=== PATIENT | male | born 1990 | race Caucasian/White ===

== ENCOUNTER 2021-07-17 21:21 | Emergency (ER) | payer OTHER, SELFPAY ==
[2021-07-17 21:25] VITALS: BP 167/112; PULSE 107; RESP 20; O2SAT 100; BMI 39.5
[2021-07-17] MEDS: Ondansetron ODT 4 MG TAB.RAPDIS TRANSLINGU (21:33)
[2021-07-17] MEDS: LORazepam 2 MG/ML VIAL IM (21:40)
--- NOTE | 2021-07-17 21:40 | ED.GENADULT ---
HPI - General Adult General Chief complaint: General Medical Stated complaint: od? Time Seen by Provider: 07/17/21 21:34 Source: patient Mode of arrival: ambulatory Limitations: no limitations History of Present Illness HPI narrative: Patient opiate user snores 6-7 bags a day today he used 3 bags and felt that he has overdosed so he use 2 dose of nasal Narcan total 4 mg and drove himself to the ER now patient vomiting feel anxious Related Data Allergies Allergy/AdvReac Type Severity Reaction Status Date / Time No Known Allergies Allergy Verified 07/17/21 21:24 [No Known Allergies*] Review of Systems Review of Systems: Yes all other systems are reviewed and are negative PMFSH Social History Social History Advance Directives: No Physical Exam Vital Signs: Vital Signs: Last Vital Signs Pulse 94 07/18/21 00:41 Resp 16 07/18/21 00:41 BP 142/92 H 07/18/21 00:41 Pulse Ox 99 07/18/21 00:41 Body Mass Index 39.5 Appearance: Alert. Oriented X3. Anxious Eyes: PERRLA, ENT: Pharynx normal. Oral Mucosa moist Neck: Normal inspection. Neck supple. CVS: Tachycardic regular rhythm Pulses normal. Respiratory: No respiratory distress. Equal air entry bilateral, no wheezing/rales/rhonchi Abdomen: Soft and nontender. Bowel sounds are present, no mass palpable Skin: Skin warm and dry. Extremities: No lower extremity edema. No calf tenderness Neuro: Oriented X 3. Course Reevaluation(s) Reevaluation #1: Patient feeling much better now feel like back to baseline not nauseated no diarrhea discharge patient home advised to follow-up with detox Time: 00:59 Discharge Plan Discharge Clinical Impression: Opiate withdrawal Patient Disposition: Home, Self-Care Instructions: Opioid Withdrawal (ED), Narcotic Use Disorder (ED) Additional Instructions: Stop using heroin Follow up detox
--- NOTE | 2021-07-17 22:00 | PC.NURSE ---
PT stated that needed to use the bathroom. PT found to be incontinent of stool in bed. PT ambulated to the bathroom on his own.
[2021-07-17] MEDS: Prochlorperazine Edisylate 10 MG/2 ML VIAL IVPUSH (22:27)
[2021-07-17] MEDS: 0.9 % Sodium Chloride 1,000 ML 999 ML IVCONT (22:27)
--- NOTE | 2021-07-17 22:33 | PC.NURSE ---
PT experiencing N/V/D while in the bathroom. 22g IV inserted into left hand. PT medicated per NOV. Fluids running. PT is resting comfortably in bed.
[2021-07-17 23:05] VITALS: BP 125/73; PULSE 84; RESP 17; O2SAT 97
[2021-07-17 23:16] VITALS: BP 125/73; PULSE 80; RESP 20; O2SAT 93
[2021-07-18 00:41] VITALS: BP 142/92; PULSE 94; RESP 16; O2SAT 99
== END 2021-07-18 01:28 | disposition home or self-care (01) ==
PROVIDERS: Emergency Provider Internal Medicine
DX: F11.23 Opioid dependence with withdrawal (principal)
CPT/HCPCS: 96361; 96372; 96374; 99284; J2060

== ENCOUNTER 2022-05-09 11:22 | Emergency (ER) | payer OTHER, SELFPAY ==
--- NOTE | ~2022-05-09 | XR_ITS ---
EXAMINATION: XR CHEST CLINICAL INFORMATION: Chest pain COMPARISON: CXR November 2021 TECHNIQUE: 2 views of the chest were obtained. FINDINGS: No significant abnormality is noted involving the heart, lungs, mediastinum, bony thorax or soft tissues. XR/XR chest 2V IMPRESSION: Unremarkable examination.
[2022-05-09 11:57] VITALS: BP 134/87; PULSE 87; RESP 16; TEMP 36.6; O2SAT 99; BMI 37.5
--- NOTE | 2022-05-09 12:01 | ECG_ITS ---
Test Reason : cp Blood Pressure : / mmHG Vent. Rate : 090 BPM Atrial Rate : 090 BPM P-R Int : 148 ms QRS Dur : 080 ms QT Int : 370 ms P-R-T Axes : 049 016 043 degrees QTc Int : 452 ms Normal sinus rhythm Normal ECG When compared with ECG of 15-DEC-2018 21:56, No significant change was found Referred By: Generic ED Physician Electronically Signed By:VIBHA MILLER
[2022-05-09 12:12] LABS: MANUAL DIFF FLAG NO
[2022-05-09 12:14] LABS: Basophils Absolute Auto 0.1 X10*3/uL (0.0-0.2); Basophils Percent Auto 0.6 % (0-2); Eosinophils Absolute Auto 0.2 X10*3/uL (0.0-0.4); Eosinophils Percent Auto 2.4 % (0-4); Hematocrit 45.4 % (42.0-52.0); Hemoglobin 15.8 g/dl (14.0-18.0); Imm Gran Abs Auto 0.04 X10*3/uL (0.00-0.03); Imm Gran Pct Auto 0.5 % (0.0-0.4); Lymphocytes Absolute Auto 2.2 X10*3/uL (1.2-4.9); Lymphocytes Percent Auto 26.4 % (20-40); Mean Corpuscular HGB Conc 34.8 g/dl (31.0-36.0); Mean Corpuscular Volume 91.9 fL (80.0-98.0); Mean Platelet Volume 9.9 fL (9.4-12.4); Monocytes Absolute Auto 0.5 X10*3/uL (0.1-1.2); Monocytes Percent Auto 6.5 % (2-11); Neutrophils Absolute Auto 5.3 x10*3/uL (2.0-8.3); Neutrophils Percent Auto 63.6 % (45-73); Platelet Count 241 X10*3/uL (160-400); Red Blood Count 4.94 X10*6/uL (4.60-5.80); Red Cell Distribution Width 12.1 % (11.0-16.0); White Blood Count 8.3 X10*3/uL (4.8-10.8)
[2022-05-09 12:34] LABS: Anion Gap 15 (12-20); Blood Urea Nitrogen 13 mg/dL (9-16); Calcium 9.5 mg/dL (8.4-10.2); Carbon Dioxide 29 mmol/L (22-29); Chloride 102 mmol/L (96-108); Creatinine Clr Calc Pharmacy 165.3; Estimated Glomerular Filt Rate > 60; Glucose Random 103 mg/dL (60-115); Potassium 4.6 mmol/L (3.3-5.1); Sodium 141 mmol/L (135-145)
[2022-05-09 12:42] LABS: Troponin-I High Sensitivity < 3.5 ng/L (<3.5-35.0)
[2022-05-09 15:43] VITALS: BP 146/93; PULSE 81; RESP 18; TEMP 36.8
--- NOTE | 2022-05-09 15:48 | PC.NURSE ---
Heart is racing fast and some burning in chest yesterday. More numbness and tingling noted in chest today and also has some tingling in his neck and back. feels like it's a panic attack symptoms are for 2 weeks now
--- NOTE | 2022-05-09 16:17 | ED_ITS ---
HPI - General Adult General Chief complaint: General Medical Stated complaint: CP/Unable to urinate/Outer body experiences Time Seen by Provider: 05/09/22 15:36 Source: patient Mode of arrival: ambulatory Limitations: no limitations History of Present Illness HPI narrative: 31-year-old male with a history of bipolar disease, ADHD presents with reports of 3 days of left-sided chest pain described as a constant burning sensation. Patient also reports he has been having increased panic attacks and anxiety over the last 1 month. Patient describes this as out of body sensation. He denies any associated shortness of breath, cough, fever, palpitations, nausea or vomiting. Patient tells me that he does see at [facility] prescriber every 3 months to prescribed Geodon, trazodone Adderall. Has not spoken to her about his recent increase in anxiety symptoms. He does not have a therapist. Did take 1 of his mom's lorazepam which seemed to help. He did talk to his primary care doctor who is hesitant to prescribe him benzos as he has a history of substance abuse. He is currently on methadone 67 mg and they are tapering him. He has a history of abusing Percocet in the past. Patient denies any recent sick contact. No recent travel. No recent surgeries. Related Data Previous Rx's Medication Instructions Recorded hydroxyzine HCl 25 mg tablet 25 mg PO TID PRN anxiety #30 tabs 05/09/22 Allergies Allergy/AdvReac Type Severity Reaction Status Date / Time No Known Allergies Allergy Verified 07/17/21 21:24 [No Known Allergies*] Review of Systems Review of Systems: Yes all other systems are reviewed and are negative Constitutional: Constitutional: Reports no additional constitutional complaints, Denies body ache(s), Denies chills, Denies fever(s), Denies headache(s) and Denies weakness Eyes: Eyes: Reports no additional eye complaints and Denies change in vision ENT: Reports system reviewed and no additional complaints, except as documented, Denies dizziness, Denies headache(s), Denies nasal congestion, Denies nasal discharge and Denies neck pain Cardiovascular: Cardiovascular: Reports no additional cardiovascular complain ts, Reports chest pain, Denies leg edema and Denies dyspnea Respiratory: Respiratory: Reports no additional respiratory complaints, Denies cough and Denies dyspnea Gastrointestinal: Gastrointestinal: Reports no additional gastrointestinal complaints, Denies abdominal pain, Denies diarrhea, Denies nausea and Denies vomiting Genitourinary: Genitourinary: Denies urinary incontinence Musculoskeletal: Musculoskeletal: Reports no additional musculoskeletal complaints, Denies back pain, Denies arthralgias, Denies joint swelling, Denies neck pain, Denies numbness and Denies tingling Integumentary/Breasts: Skin/Breast: Reports system reviewed and no additional complaints, except as docu and Denies rash Neurologic: Reports system reviewed and no additional complaints, except as documented, Denies dizziness, Denies headache(s), Denies numbness, Denies tingling and Denies weakness Psychiatric: Psychiatric: Reports anxiety and Denies suicidal ideation COUNTS INCLUDE 234 BEDS AT THE [facility] Past Medical History Attestation statement: The following information was validated with the patient. Source: old records reviewed and nursing notes reviewed Social History Social History Patient Tobacco Use Status: Current everyday Tobacco user Smoked in Last 30 Days: Yes Substance Use Type: Other Any prior treatment program specific to substance use: Yes Advance Directives: No Advance Directives Information Provided: Yes Physical Exam ED Vital Signs: Vital Signs - 24 hr 05/09/22 11:57 05/09/22 15:43 Temperature 97.9 F 98.3 F Pulse Rate 87 81 Respiratory Rate 16 18 Blood Pressure 134/87 146/93 H Pulse Oximetry 99 Oxygen Delivery Method Room Air Room Air Oxygen Flow Rate 99 BMI result Body Mass Index 37.5 Const General: cooperative, healthy appearing, comfortable and no acute distress Orientation/consciousness: patient oriented x3 Limitations: no limitations HENMT Head: Yes normal to inspection Ears: hearing grossly normal bilaterally and TM normal on the right Throat: Yes posterior oropharynx normal, Yes tonsils normal and Yes uvula midline Eyes General: appearance normal, both eyes and all related structures Pupils: Equal, round and reactive pupils present Neck Neck: Yes normal visual inspection, Yes full ROM, Yes no lymphadenopathy and Yes no meningeal signs Chest Chest palpation & inspection: normal inspection of the chest Resp Effort & Inspection: normal respiratory effort Auscultation: clear to auscultation bilaterally Cardio Rate: regular rate Rhythm: regular rhythm Peripheral pulses: Peripheral pulses 2+ throughout GI Inspection: Yes normal to inspection Palpation (GI): Soft to palpation and nontender General: Yes no CVA tenderness Back/Spine/Pelvis Back: no CVA tenderness Thoracic/Lumbar Spine: thoracic and lumbar spine normal to inspection Skin General skin exam: no rashes or lesions noted Neuro General: patient oriented x3, moves all extremities and no meningeal signs Cranial nerves: Yes CN's II-XII intact bilaterally, Yes Equal, round and reactive pupils present, Yes Bilaterally intact EOM present, Yes Nystagmus not present and Yes Normal facial strength present Cognition (Neuro): normal cognition Gait exam (Neuro): Normal gait present Motor exam (neuro): 5/5 motor strength present throughout Sensory Exam: Normal double simultaneous stimulation for sensation Coordination: [id number] test normal, [id number] test normal and tandem gait normal Course Course Course Narrative: EKG shows no ischemic changes. Labs unremarkable. Chest x-ray was no acute finding. Patient reports multiple life stressors. Patient reports increasing anxiety and panic attacks over the last month. Patient does have a prescriber for his psychiatric medications. He does not have a therapist. He is working on getting better insurance that he may qualify for therapy. I did recommend that he do this is a believe may be helpful. He should also to speak to his prescribing physician about his anxiety and they may be able to offer some recommendations for him. Reviewed worrisome signs and symptoms of when to return to the emergency department. Comfortable discharge home. Medical Decision Making MDM Narrative Medical decision making narrative: 31-year-old male with history of bipolar disorder, ADHD, former substance use presents with a constellation of symptoms but most specifically some left-sided chest pain for the last few days with no associated symptoms as constant in nature and nonexertional. Patient also complaining of anxiety and panic attacks over the last month. Not currently on any anxiety medications and does have a prescribing provider for his Geodon and trazodone and Adderall. Overall nontoxic. Vitals are stable. Will check EKG, labs, chest x-ray Differential Diagnosis Differential Diagnosis: Anxiety, ACS Medical Records Medical records reviewed: Yes I reviewed the patient's medical records. Lab Data Lab results reviewed: Yes I reviewed the patient's lab results. Result diagrams: 05/09/22 12:07 05/09/22 12:07 Labs: Lab Results 05/09/22 05/09/22 05/09/22 Range/Units 12:07 12:07 12:07 WBC 8.3 (4.8-10.8) X10*3/uL RBC 4.94 (4.60-5.80) X10*6/uL Hgb 15.8 (14.0-18.0) g/dl Hct 45.4 (42.0-52.0) % MCV 91.9 (80.0-98.0) fL MCH 32.0 (27.0-33.0) pg MCHC 34.8 (31.0-36.0) g/dl RDW 12.1 (11.0-16.0) % Plt Count 241 (160-400) X10*3/uL MPV 9.9 (9.4-12.4) fL Immature Gran % (Auto) 0.5 H (0.0-0.4) % Neut % (Auto) 63.6 (45-73) % Lymph % (Auto) 26.4 (20-40) % [place] % (Auto) 6.5 (2-11) % Eos % (Auto) 2.4 (0-4) % Baso % (Auto) 0.6 (0-2) % Lymph # (Auto) 2.2 (1.2-4.9) X10*3/uL [place] # (Auto) 0.5 (0.1-1.2) X10*3/uL Eos # (Auto) 0.2 (0.0-0.4) X10*3/uL Baso # (Auto) 0.1 (0.0-0.2) X10*3/uL Abs Immat Gran (auto) 0.04 H (0.00-0.03) X10*3/uL Absolute Neuts (auto) 5.3 (2.0-8.3) x10*3/uL Absolute Nucleated RBC 0.000 (0.0-0.012) X10*3/uL Nucleated RBC % (auto) 0.0 (0.0-0.2) /100WBC Sodium 141 (135-145) mmol/L Potassium 4.6 (3.3-5.1) mmol/L Chloride 102 (96-108) mmol/L Carbon Dioxide 29 (22-29) mmol/L Anion Gap 15 (12-20) BUN 13 (9-16) mg/dL Creatinine 0.87 (0.5-1.4) mg/dL Estim Creat Clear Calc 165.3 Estimated GFR > 60 Random Glucose 103 (60-115) mg/dL Calcium 9.5 (8.4-10.2) mg/dL Troponin I High Sens < 3.5 (<3.5-35.0) ng/L Imaging Data Chest x-ray: Attestation: I personally reviewed and interpreted this imaging study as follows: Radiologist's impression: [address] [address] XRay Report Signed Patient: Carl Matos MR#: [id number] : 1990 Acct:[id number] Age/Sex: 31 / M ADM Date: 05/09/22 Loc: .ED Attending Dr: Ordering Physician: Generic ED Physician Date of Service: 05/09/22 Procedure(s): XR chest 2V Accession Number(s): [id number] cc: Generic ED Physician~ EXAMINATION: XR CHEST CLINICAL INFORMATION: Chest pain COMPARISON: CXR November 2021 TECHNIQUE: 2 views of the chest were obtained. FINDINGS: No significant abnormality is noted involving the heart, lungs, mediastinum, bony thorax or soft tissues. XR/XR chest 2V IMPRESSION: Unremarkable examination. ECG Data Attestation: I personally reviewed and interpreted this ECG as follows: Interpretation: NSR with rate 90, normal pr, normal qrs, normal qt Discharge Plan Discharge Clinical Impression: Atypical chest pain, Anxiety Patient Disposition: Home, Self-Care Instructions: Anxiety (ED), Chest Wall Pain (ED) Additional Instructions: Follow-up with your medication prescriber Establish a therapist Your blood work and EKG and x-ray are reassuring Prescriptions: New hydroxyzine HCl 25 mg tablet 25 mg PO TID PRN (Reason: anxiety) Qty: 30 0RF Referrals: Physician,Unknown J [Primary Care Provider] - Interventions: ED Discharge Assessment Last Done: 05/09/22 16:27 Discharge Date/Time: 05/09/22 16:28
== END 2022-05-09 16:28 | disposition home or self-care (01) ==
PROVIDERS: Emergency Provider Student in an Organized Health Care Education/Training Program
DX: R07.89 Other chest pain (principal); F41.9 Anxiety disorder, unspecified; F17.200 Nicotine dependence, unspecified, uncomplicated
CPT/HCPCS: 36415; 71046; 80048; 84484; 85025; 93005; 99283; 99284

== ENCOUNTER 2022-11-06 14:41 | Emergency (ER) | payer OTHER, SELFPAY ==
--- NOTE | ~2022-11-06 | XR_ITS ---
EXAMINATION: XR CHEST CLINICAL INFORMATION: Chest pain COMPARISON: Chest x-ray 05/09/2022 TECHNIQUE: Frontal view of the chest was obtained. FINDINGS: The patient is slightly rotated. The lungs are clear. No airspace consolidation, pleural effusion, or pneumothorax. The cardiomediastinal silhouette is within normal limits. No acute osseous injury. XR/XR chest 1V IMPRESSION: No acute pulmonary disease.
[2022-11-06 14:54] VITALS: BP 168/93; PULSE 97; TEMP 36.6; O2SAT 94; BMI 36.6
--- NOTE | 2022-11-06 14:55 | ECG_ITS ---
Test Reason : CHEST PAIN Blood Pressure : / mmHG Vent. Rate : 095 BPM Atrial Rate : 095 BPM P-R Int : 150 ms QRS Dur : 080 ms QT Int : 358 ms P-R-T Axes : 043 002 051 degrees QTc Int : 449 ms Normal sinus rhythm Normal ECG When compared with ECG of 09-MAY-2022 12:01, No significant change was found Referred By: Kirt Aguila Electronically Signed By:FLOYD CERVANTES MD
--- NOTE | 2022-11-06 14:58 | ED.CHESTPAIN ---
HPI - Chest Pain General Chief Complaint: Chest Pain Stated Complaint: Chest pain/HBP Time Seen by Provider: 11/06/22 17:00 Related Data Previous Rx's Medication Instructions Recorded hydroxyzine HCl 25 mg tablet 25 mg PO TID PRN anxiety #30 tabs 05/09/22 Allergies Allergy/AdvReac Type Severity Reaction Status Date / Time No Known Allergies Allergy Verified 07/17/21 21:24 [No Known Allergies*] [facility] Social History Social History Patient Tobacco Use Status: Current everyday Tobacco user Substance Use Type: Other Advance Directives: No Advance Directives Information Provided: No Physical Exam Vital Signs: Vital Signs: Last Vital Signs Temp 97.9 F 11/06/22 14:54 Pulse 82 11/06/22 17:27 Resp 18 11/06/22 17:27 BP 159/95 H 11/06/22 17:27 Pulse Ox 98 11/06/22 17:27 O2 Del Method 11/06/22 17:27 BMI result Body Mass Index 36.6 Course Course Course Narrative: RME: 31 yold male with pmh of anxiety presents to the ED for chest pain and sensation as if the room is closing in and making him nervous. mother states blood pressure was elevated yesterday. no pmh of hypertension. patient states feels nervous. will do EKG, labs, and chest xray. no leg swelling, calf pain, or pitting edema. Medical Decision Making Lab Data 11/06/22 15:21 11/06/22 15:21 Labs: Lab Results 11/06/22 11/06/22 11/06/22 Range/Units 15:21 15:21 15:21 WBC 8.5 (4.8-10.8) X10*3/uL RBC 4.94 (4.60-5.80) X10*6/uL Hgb 15.6 (14.0-18.0) g/dl Hct 45.2 (42.0-52.0) % MCV 91.5 (80.0-98.0) fL MCH 31.6 (27.0-33.0) pg MCHC 34.5 (31.0-36.0) g/dl RDW 12.6 (11.0-16.0) % Plt Count 252 (160-400) X10*3/uL MPV 10.7 (9.4-12.4) fL Immature Gran % (Auto) 0.2 (0.0-0.4) % Neut % (Auto) 62.2 (45-73) % Lymph % (Auto) 30.0 (20-40) % [place] % (Auto) 5.4 (2-11) % Eos % (Auto) 1.5 (0-4) % Baso % (Auto) 0.7 (0-2) % Lymph # (Auto) 2.5 (1.2-4.9) X10*3/uL [place] # (Auto) 0.5 (0.1-1.2) X10*3/uL Eos # (Auto) 0.1 (0.0-0.4) X10*3/uL Baso # (Auto) 0.1 (0.0-0.2) X10*3/uL Abs Immat Gran (auto) 0.02 (0.00-0.03) X10*3/uL Absolute Neuts (auto) 5.3 (2.0-8.3) x10*3/uL Absolute Nucleated RBC 0.000 (0.0-0.012) X10*3/uL Nucleated RBC % (auto) 0.0 (0.0-0.2) /100WBC PT 11.7 (10.0-13.1) SEC INR 1.0 (0.9-1.1) APTT 34.2 (26.0-36.4) SEC Sodium 140 (135-145) mmol/L Potassium 4.5 (3.3-5.1) mmol/L Chloride 101 (96-108) mmol/L Carbon Dioxide 29 (22-29) mmol/L Anion Gap 15 (12-20) BUN 14 (9-16) mg/dL Creatinine 0.93 (0.5-1.4) mg/dL Estim Creat Clear Calc 152.6 Estimated GFR > 60 Random Glucose 128 H (60-115) mg/dL Calcium 9.8 (8.4-10.2) mg/dL Total Bilirubin 0.5 (0.0-1.0) mg/dL AST 17 (5-37) U/L ALT 29 (0-40) U/L Alkaline Phosphatase 87 (39-117) U/L Troponin I High Sens (<3.5-35.0) ng/L B-Natriuretic Peptide (<100) pg/mL Total Protein 7.2 (6.5-8.0) g/dL Albumin 4.1 (3.5-5.0) g/dL 11/06/22 11/06/22 Range/Units 15:21 15:21 WBC (4.8-10.8) X10*3/uL RBC (4.60-5.80) X10*6/uL Hgb (14.0-18.0) g/dl Hct (42.0-52.0) % MCV (80.0-98.0) fL MCH (27.0-33.0) pg MCHC (31.0-36.0) g/dl RDW (11.0-16.0) % Plt Count (160-400) X10*3/uL MPV (9.4-12.4) fL Immature Gran % (Auto) (0.0-0.4) % Neut % (Auto) (45-73) % Lymph % (Auto) (20-40) % [place] % (Auto) (2-11) % Eos % (Auto) (0-4) % Baso % (Auto) (0-2) % Lymph # (Auto) (1.2-4.9) X10*3/uL [place] # (Auto) (0.1-1.2) X10*3/uL Eos # (Auto) (0.0-0.4) X10*3/uL Baso # (Auto) (0.0-0.2) X10*3/uL Abs Immat Gran (auto) (0.00-0.03) X10*3/uL Absolute Neuts (auto) (2.0-8.3) x10*3/uL Absolute Nucleated RBC (0.0-0.012) X10*3/uL Nucleated RBC % (auto) (0.0-0.2) /100WBC PT (10.0-13.1) SEC INR (0.9-1.1) APTT (26.0-36.4) SEC Sodium (135-145) mmol/L Potassium (3.3-5.1) mmol/L Chloride (96-108) mmol/L Carbon Dioxide (22-29) mmol/L Anion Gap (12-20) BUN (9-16) mg/dL Creatinine (0.5-1.4) mg/dL Estim Creat Clear Calc Estimated GFR Random Glucose (60-115) mg/dL Calcium (8.4-10.2) mg/dL Total Bilirubin (0.0-1.0) mg/dL AST (5-37) U/L ALT (0-40) U/L Alkaline Phosphatase (39-117) U/L Troponin I High Sens < 3.5 (<3.5-35.0) ng/L B-Natriuretic Peptide 12 (<100) pg/mL Total Protein (6.5-8.0) g/dL Albumin (3.5-5.0) g/dL Discharge Plan Discharge Clinical Impression: Atypical chest pain, Elevated blood pressure reading, Elevated blood sugar Patient Disposition: Home, Self-Care Instructions: Chest Pain (ED), How to Take a Blood Pressure (ED) Additional Instructions: Have an appoint with her primary care provider tomorrow. I am recommending that you follow-up with them as scheduled monitor blood pressure. You were seen here for chest pain. Chest pain does not appear to be cardiac in nature. However, should her chest pain change in any way, or any other concerning symptoms, please follow-up the emergency room for re-evaluation. Prescriptions: No Action hydroxyzine HCl 25 mg tablet 25 mg PO TID PRN (Reason: anxiety) Qty: 30 0RF Interventions: ED Discharge Assessment Last Done: 11/06/22 17:28 Discharge Date/Time: 11/06/22 17:29
[2022-11-06 15:34] LABS: MANUAL DIFF FLAG NO
[2022-11-06 15:37] LABS: Basophils Absolute Auto 0.1 X10*3/uL (0.0-0.2); Basophils Percent Auto 0.7 % (0-2); Eosinophils Absolute Auto 0.1 X10*3/uL (0.0-0.4); Eosinophils Percent Auto 1.5 % (0-4); Hematocrit 45.2 % (42.0-52.0); Hemoglobin 15.6 g/dl (14.0-18.0); Imm Gran Abs Auto 0.02 X10*3/uL (0.00-0.03); Imm Gran Pct Auto 0.2 % (0.0-0.4); Lymphocytes Absolute Auto 2.5 X10*3/uL (1.2-4.9); Mean Corpuscular HGB Conc 34.5 g/dl (31.0-36.0); Mean Corpuscular Hemoglobin 31.6 pg (27.0-33.0); Mean Corpuscular Volume 91.5 fL (80.0-98.0); Mean Platelet Volume 10.7 fL (9.4-12.4); Monocytes Absolute Auto 0.5 X10*3/uL (0.1-1.2); Monocytes Percent Auto 5.4 % (2-11); Neutrophils Absolute Auto 5.3 x10*3/uL (2.0-8.3); Neutrophils Percent Auto 62.2 % (45-73); Platelet Count 252 X10*3/uL (160-400); Red Blood Count 4.94 X10*6/uL (4.60-5.80); Red Cell Distribution Width 12.6 % (11.0-16.0); White Blood Count 8.5 X10*3/uL (4.8-10.8)
[2022-11-06 15:42] LABS: Prothrombin Time 11.7 SEC (10.0-13.1)
[2022-11-06 15:44] LABS: Partial Thromboplastin Time 34.2 SEC (26.0-36.4)
[2022-11-06 15:52] LABS: Alanine Aminotransferase 29 U/L (0-40); Albumin Level 4.1 g/dL (3.5-5.0); Alkaline Phosphatase 87 U/L (39-117); Anion Gap 15 (12-20); Aspartate Amino Transferase 17 U/L (5-37); Bilirubin Total 0.5 mg/dL (0.0-1.0); Blood Urea Nitrogen 14 mg/dL (9-16); Calcium 9.8 mg/dL (8.4-10.2); Carbon Dioxide 29 mmol/L (22-29); Chloride 101 mmol/L (96-108); Creatinine Clr Calc Pharmacy 152.6; Estimated Glomerular Filt Rate > 60; Glucose Random 128 mg/dL (60-115); Potassium 4.5 mmol/L (3.3-5.1); Sodium 140 mmol/L (135-145); Total Protein 7.2 g/dL (6.5-8.0)
[2022-11-06 15:58] LABS: B Type Natriuretic Peptide 12 pg/mL (<100)
[2022-11-06 16:00] LABS: Troponin-I High Sensitivity < 3.5 ng/L (<3.5-35.0)
--- NOTE | 2022-11-06 17:10 | ED_ITS ---
HPI - Chest Pain General Chief Complaint: Chest Pain Stated Complaint: Chest pain/HBP Time Seen by Provider: 11/06/22 17:00 Source: patient Mode of arrival: ambulatory Limitations: no limitations History of Present Illness HPI narrative: 31-year-old male with no previous cardiac history presents with chest pain. C hest pain is substernal nature. It does not radiate. It is described as moderate in nature. He also describes as heaviness. Is not associated with exertion. He does note that is worse with stress as well as increased smoking. He denies a cough, fever, chills, cough or mucus production. He denies chest pain with exertion, orthopnea, PND or lower extremity edema. Denies any recent surgery or history of pulmonary embolus. Denies any recent immobilization or trauma. Patient does note a lot of stress at home which may be exacerbating his symptoms Related Data Previous Rx's Medication Instructions Recorded hydroxyzine HCl 25 mg tablet 25 mg PO TID PRN anxiety #30 tabs 05/09/22 Allergies Allergy/AdvReac Type Severity Reaction Status Date / Time No Known Allergies Allergy Verified 07/17/21 21:24 [No Known Allergies*] Review of Systems Review of Systems: Yes all other systems are reviewed and are negative Constitutional: Constitutional: Reports no additional constitutional complaints, Denies body ache(s), Denies chills, Denies fever(s), Denies h eadache(s) and Denies weakness Eyes: Eyes: Reports no additional eye complaints and Denies change in vision ENT: Reports system reviewed and no additional complaints, except as documented, Denies dizziness, Denies headache(s), Denies nasal congestion, Denies nasal discharge and Denies neck pain Cardiovascular: Cardiovascular: Reports no additional cardiovascular complaints, Reports chest pain, Denies leg edema and Denies dyspnea Respiratory: Respiratory: Reports no additional respiratory complaints, Denies cough and Denies dyspnea Gastrointestinal: Gastrointestinal: Reports no additional gastrointestinal complaints, Denies abdominal pain, Denies diarrhea, Denies nausea and Denies vomiting Genitourinary: Genitourinary: Denies urinary incontinence Musculoskeletal: Musculoskeletal: Reports no additional musculoskeletal complaints, Denies back pain, Denies arthralgias, Denies joint swelling, Denies neck pain, Denies numbness and Denies tingling Integumentary/Breasts: Skin/Breast: Reports system reviewed and no additional complaints, except as docu and Denies rash Neurologic: Reports system reviewed and no additional complaints, except as documented, Denies dizziness, Denies headache(s), Denies numbness, Denies tingling and Denies weakness Psychiatric: Psychiatric: Reports anxiety and Denies suicidal ideation Endocrine: Endocrine: Reports no additional endocrine complaints Hematologic/Lymphatic: Hematologic/Lymphatic: Reports no additional hematologic/lymphatic complaints Allergic/Immunologic: Allergic/Immunologic: Reports no additional allergic/immunologic complaints [facility] Social History Social History Patient Tobacco Use Status: Current everyday Tobacco user Substance Use Type: Other Advance Directives: No Advance Directives Information Provided: No Physical Exam Vital Signs: Vital Signs: Last Vital Signs Temp 97.9 F 11/06/22 14:54 Pulse 97 11/06/22 14:54 BP 168/93 H 11/06/22 14:54 Pulse Ox 94 11/06/22 14:54 O2 Del Method 11/06/22 14:54 BMI result Body Mass Index 36.6 Const: Other: GEN: Well developed, no acute distress, alert, oriented HEENT: Normocephalic, atraumatic, normal external ears, nose appears normal, no oropharyngeal edema or exudates Eyes: Normal to appearance Neck: Supple, no lymphadenopathy Respiratory: Talks in complete sentences, no respiratory distress, clear to auscultation bilaterally Cardiovascular: Regular rate and rhythm, no murmurs rubs or gallops Abdomen: Soft, nontender, nondistended, no guarding, no rebound Back: No CVA tenderness Extremities: No clubbing cyanosis or edema Neurologic: No focal neurologic deficits, cranial nerves 2-12 intact, strength is 5/5 bilaterally, gait normal Skin: No rash Course Course Course Narrative: 31-year-old male with no previous cardiac history of pulmonary emboli, presents with chest pain. Chest pain is substernal and pressure-like in nature. Not associated with exertion. He did have some reproducible component to it on the left upper chest wall. His lungs are clear to auscultation bilaterally and his cardiac exam is normal. There is no edema. Patient has elevated blood pressure reading but otherwise no additional cardiac risk factors. 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 While in the emergency department, he had a chest x-ray Jason revealed no acute cardiopulmonary disease, EKG which was nonischemic and no cardiac dysrhythmia. Lab work was unremarkable including a set of cardiac enzymes. He has no risk factors for pulmonary emboli and his PERC score is 0. There is no indication for CT angiogram of the chest. At this time, this does not appear to be pulmonary or cardiac in nature. It is likely an atypical chest pain could be associated with stress and anxiety. He has a follow-up appointment with his primary care provider for his elevated blood pressure and his symptoms tomorrow morning. Discussed also discharge instructions, results, plan with patient he understands the nest questions. All questions were addressed and answered Medical Decision Making Medical Decision Making [facility] Narrative: 31-year-old male with no previous cardiac history of pulmonary emboli, presents with chest pain. Chest pain is substernal and pressure-like in nature. Not associated with exertion. He did have some reproducible component to it on the left upper chest wall. His lungs are clear to auscultation bilaterally and his cardiac exam is normal. There is no edema. Patient has elevated blood pressure reading but otherwise no additional cardiac risk factors. 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 While in the emergency department, he had a chest x-ray Jason revealed no acute cardiopulmonary disease, EKG which was nonischemic and no cardiac dysrhythmia. Lab work was unremarkable including a set of cardiac enzymes. He has no risk factors for pulmonary emboli and his PERC score is 0. There is no indication for CT angiogram of the chest. At this time, this does not appear to be pulmonary or cardiac in nature. It is likely an atypical chest pain could be associated with stress and anxiety. He has a follow-up appointment with his primary care provider for his elevated blood pressure and his symptoms tomorrow morning. Discussed also discharge instructions, results, plan with patient he understands the nest questions. All questions were addressed and answered Differential Diagnosis Differential Diagnoses: The differential diagnosis associated with the presentation includes (Atypical chest pain, musculoskeletal chest pain, chest wall pain, myocardial infarction, pericarditis, myocarditis, anxiety, stress, reflux, pneumonia, pulmonary embolus, dissection) Admission/Observation Consideration of admission/observation: Escalation of care including admission/observation considered Lab Data [facility] Lab Attestation statement: I reviewed the patient's lab results. 11/06/22 15:21 02/06/23 15:21 Labs: Lab Results 11/06/22 11/06/22 11/06/22 Range/Units 15:21 15:21 15:21 WBC 8.5 (4.8-10.8) X10*3/uL RBC 4.94 (4.60-5.80) X10*6/uL Hgb 15.6 (14.0-18.0) g/dl Hct 45.2 (42.0-52.0) % MCV 91.5 (80.0-98.0) fL MCH 31.6 (27.0-33.0) pg MCHC 34.5 (31.0-36.0) g/dl RDW 12.6 (11.0-16.0) % Plt Count 252 (160-400) X10*3/uL MPV 10.7 (9.4-12.4) fL Immature Gran % (Auto) 0.2 (0.0-0.4) % Neut % (Auto) 62.2 (45-73) % Lymph % (Auto) 30.0 (20-40) % Letcher % (Auto) 5.4 (2-11) % Eos % (Auto) 1.5 (0-4) % Baso % (Auto) 0.7 (0-2) % Lymph # (Auto) 2.5 (1.2-4.9) X10*3/uL Letcher # (Auto) 0.5 (0.1-1.2) X10*3/uL Eos # (Auto) 0.1 (0.0-0.4) X10*3/uL Baso # (Auto) 0.1 (0.0-0.2) X10*3/uL Abs Immat Gran (auto) 0.02 (0.00-0.03) X10*3/uL Absolute Neuts (auto) 5.3 (2.0-8.3) x10*3/uL Absolute Nucleated RBC 0.000 (0.0-0.012) X10*3/uL Nucleated RBC % (auto) 0.0 (0.0-0.2) /100WBC PT 11.7 (10.0-13.1) SEC INR 1.0 (0.9-1.1) APTT 34.2 (26.0-36.4) SEC Sodium 140 (135-145) mmol/L Potassium 4.5 (3.3-5.1) mmol/L Chloride 101 (96-108) mmol/L Carbon Dioxide 29 (22-29) mmol/L Anion Gap 15 (12-20) BUN 14 (9-16) mg/dL Creatinine 0.93 (0.5-1.4) mg/dL Estim Creat Clear Calc 152.6 Estimated GFR > 60 Random Glucose 128 H (60-115) mg/dL Calcium 9.8 (8.4-10.2) mg/dL Total Bilirubin 0.5 (0.0-1.0) mg/dL AST 17 (5-37) U/L ALT 29 (0-40) U/L Alkaline Phosphatase 87 (39-117) U/L Troponin I High Sens (<3.5-35.0) ng/L B-Natriuretic Peptide (<100) pg/mL Total Protein 7.2 (6.5-8.0) g/dL Albumin 4.1 (3.5-5.0) g/dL 11/06/22 11/06/22 Range/Units 15:21 15:21 WBC (4.8-10.8) X10*3/uL RBC (4.60-5.80) X10*6/uL Hgb (14.0-18.0) g/dl Hct (42.0-52.0) % MCV (80.0-98.0) fL MCH (27.0-33.0) pg MCHC (31.0-36.0) g/dl RDW (11.0-16.0) % Plt Count (160-400) X10*3/uL MPV (9.4-12.4) fL Immature Gran % (Auto) (0.0-0.4) % Neut % (Auto) (45-73) % Lymph % (Auto) (20-40) % Letcher % (Auto) (2-11) % Eos % (Auto) (0-4) % Baso % (Auto) (0-2) % Lymph # (Auto) (1.2-4.9) X10*3/uL Letcher # (Auto) (0.1-1.2) X10*3/uL Eos # (Auto) (0.0-0.4) X10*3/uL Baso # (Auto) (0.0-0.2) X10*3/uL Abs Immat Gran (auto) (0.00-0.03) X10*3/uL Absolute Neuts (auto) (2.0-8.3) x10*3/uL Absolute Nucleated RBC (0.0-0.012) X10*3/uL Nucleated RBC % (auto) (0.0-0.2) /100WBC PT (10.0-13.1) SEC INR (0.9-1.1) APTT (26.0-36.4) SEC Sodium (135-145) mmol/L Potassium (3.3-5.1) mmol/L Chloride (96-108) mmol/L Carbon Dioxide (22-29) mmol/L Anion Gap (12-20) BUN (9-16) mg/dL Creatinine (0.5-1.4) mg/dL Estim Creat Clear Calc Estimated GFR Random Glucose (60-115) mg/dL Calcium (8.4-10.2) mg/dL Total Bilirubin (0.0-1.0) mg/dL AST (5-37) U/L ALT (0-40) U/L Alkaline Phosphatase (39-117) U/L Troponin I High Sens < 3.5 (<3.5-35.0) ng/L B-Natriuretic Peptide 12 (<100) pg/mL Total Protein (6.5-8.0) g/dL Albumin (3.5-5.0) g/dL Independent Interpretation I performed an independent interpretation of an: EKG (Normal sinus rhythm heart rate 95, normal intervals, no acute ST elevations or depressions, no evidence of cardiac dysrhythmia) and Plain X-Ray (No acute cardiopulmonary disease on chest x-ray) External Record Review External record reviewed: Other (Previous emergency department visits in May of 2022) Tests considered The following testing was considered but not selected: CT chest Prescription Management I considered prescription management with: Pain Medication Discharge Plan Discharge Clinical Impression: Atypical chest pain, Elevated blood pressure reading, Elevated blood sugar Patient Disposition: Home, Self-Care Instructions: Chest Pain (ED), How to Take a Blood Pressure (ED) Additional Instructions: Have an appoint with her primary care provider tomorrow. I am recommending that you follow-up with them as scheduled monitor blood pressure. You were seen here for chest pain. Chest pain does not appear to be cardiac in nature. However, should her chest pain change in any way, or any other concerning symptoms, please follow-up the emergency room for re-evaluation. Prescriptions: No Action hydroxyzine HCl 25 mg tablet 25 mg PO TID PRN (Reason: anxiety) Qty: 30 0RF
[2022-11-06 17:27] VITALS: BP 159/95; PULSE 82; RESP 18; O2SAT 98
== END 2022-11-06 17:29 | disposition home or self-care (01) ==
PROVIDERS: Physician Assistant; Emergency Provider Emergency Medicine
DX: R07.89 Other chest pain (principal); R03.0 Elevated blood-pressure reading, without diagnosis of hypertension; R73.9 Hyperglycemia, unspecified; F17.200 Nicotine dependence, unspecified, uncomplicated; F11.20 Opioid dependence, uncomplicated
CPT/HCPCS: 36415; 71045; 80053; 83880; 84484; 85025; 85610; 85730; 93005; 99283

== ENCOUNTER 2023-11-10 11:41 | Inpatient (IN) | payer OTHER, SELFPAY ==
[2023-11-10 11:44] VITALS: BP 162/92; PULSE 111; O2SAT 98
--- NOTE | 2023-11-10 11:46 | ED.PSYCH ---
HPI - Psych General Chief Complaint: Behavioral Concerns Stated Complaint: ANXIETY/PANIC ATTACK S/P ARGUMENT W/MOM PER EMS Time Seen by Provider: 11/10/23 12:21 Source: patient and family (significant other) Mode of arrival: ambulatory Limitations: no limitations History of Present Illness HPI Narrative: Patient is a 32-year-old male with history of PTSD, bipolar disorder presenting to the emergency department with complaint of increased anxiety and frequent panic attacks. Reports that he recently took extra doses of his lorazepam and ran out 5 days ago. Has been getting into verbal arguments with his mother. Also reporting he has been out of his blood pressure medication and has not been taking it regularly, states he is on 10 mg of lisinopril daily. Girlfriend reports that he has been getting weaned down on his methadone dosing at a rate of 1 mg per week. Patient denies any suicidal or homicidal ideation, auditory or visual hallucinations. Denies any physical complaints. complaint: anxiety and substance abuse Onset (ago): day(s) Duration: getting worse History of same: Yes Relieving factors: none Exacerbating factors: drug use Associated psychiatric symptoms: depression and racing thoughts Associated symptoms: denies other symptoms Treatments prior to arrival: none Related Data Home Medications Medication Instructions Recorded Confirmed clonazepam 1 mg tablet 1 mg PO TID 11/10/23 11/10/23 dextroamphetamine-amphetamine 20 1 tab PO BID 11/10/23 11/10/23 mg tablet lorazepam 1 mg tablet 1 mg PO TID 11/10/23 11/10/23 tamsulosin 0.4 mg capsule 0.4 mg PO DAILY 11/10/23 11/10/23 trazodone 100 mg tablet 150 mg PO BEDTIME 11/10/23 11/10/23 ziprasidone HCl 80 mg capsule 80 mg PO BID 11/10/23 11/10/23 Allergies Allergy/AdvReac Type Severity Reaction Status Date / Time No Known Allergies Allergy Verified 11/10/23 11:52 [No Known Allergies*] Review of Systems Review of Systems: As per HPI. Yes all other systems are reviewed and are negative Constitutional: Constitutional: Reports as per HPI [facility] Social History Social History Alcohol intake: never Patient Tobacco Use Status: Current everyday Tobacco user Smoked in Last 30 Days: Yes Use of substances other than those prescribed or required for medical reasons: Yes Substance Use Type: Marijuana Substance Use Frequency: Monthly Advance Directives: No Physical Exam Vital Signs: Vital Signs: Last Vital Signs Temp 96.8 F 11/10/23 11:48 Pulse 97 11/10/23 11:48 Resp 14 11/10/23 13:06 BP 174/117 H 11/10/23 11:48 Pulse Ox 97 11/10/23 11:48 O2 Del Method Room Air 11/10/23 11:48 BMI result Body Mass Index 31.2 Vital signs have been reviewed and appear to be correct. Blood pressure elevated. Heart rate normal. Respiratory rate normal. Temperature normal. Oxygen saturation normal. Const: General: cooperative and no acute distress Orientation/consciousness: oriented to person, oriented to place, oriented to time and patient oriented x3 Limitations: no limitations HEENT: Head: Yes normocephalic and Yes atraumatic Ears: external ears normal General nose exam: Normal external nose present Face and sinus: Yes face symmetric Mouth: oropharynx normal and moist mucous membranes Throat: Yes uvula midline Eyes: Pupils: Equal, round and reactive pupils present Neck: Neck: Yes normal visual inspection and Yes supple Resp: Effort & Inspection: normal respiratory effort and able to speak in complete sentences Auscultation: clear to auscultation bilaterally Cardio: Rate: regular rate Rhythm: regular rhythm Heart sounds: S1 normal heart sound present and S2 normal heart sound present GI: Palpation (GI): Soft to palpation and nontender Auscultation: normoactive bowel sounds : General: Yes no CVA tenderness Back/Spine/Pelvis: Back: no CVA tenderness Skin: General skin exam: elasticity normal and turgor normal Neuro: General: oriented to person, oriented to place, oriented to time, patient oriented x3, moves all extremities, no focal motor deficits and CN's II-XI intact bilaterally Cranial nerves: Yes Equal, round and reactive pupils present Cognition (Neuro): normal cognition Extrem: General: Yes full ROM, Yes no pedal edema and Yes no calf tenderness Psych: Appearance: grossly normal Mental Status: mental status grossly normal Speech and movement: Pressured speech present Affect: Anxious affect present Attitude: cooperative Thought process: Perseverating thought process present and Racing thoughts present Thought content: suicidality, no homicidality and no hallucinations Insight: Fair insight present (Psych) Judgement: Fair judgement present (Psych) Course Course Course Narrative: This is an RME: Additional HPI, ROS, PE not included below will be deferred to primary provider. Patient is a 32-year-old male who presents emergency department via EMS for evaluation, reportedly having increasing panic attacks and anxiety over past few days. He reports he was ?sniffing Ativan for awhile?, over the past week. These are prescribed to him. Reports he has a recovering addict. Currently on Methadone, has take home bottles. Reports feeling disorganized, hx bipolar/ADHD which he is currnetly taking medications for. Denies SI/HI. He does not want any medications at this time to help with anxiety. This morning he has a verbal altercation with his mother and felt like he was having an out of body experience which has never happened. Plan: basic labs, toxicology, CARE team eval Medications Administered Discontinued Medications Generic Name Dose Route Start Last Admin Trade Name Freq PRN Reason Stop Dose Admin Lisinopril 10 mg 11/10/23 13:11 11/10/23 13:18 Lisinopril 10 Mg Tablet PO 11/10/23 13:12 10 mg ONCE ONE Administration Protocol Lorazepam 2 mg 11/10/23 12:23 11/10/23 12:26 Lorazepam 1 Mg Tablet PO 11/10/23 12:24 2 mg ONCE ONE Administration Medical Decision Making Medical Decision Making [facility] Narrative: Patient is a 32-year-old male with history of PTSD, bipolar disorder presenting to the emergency department with complaint of increased anxiety and frequent panic attacks. On exam patient is awake, A+Ox3, hypertensive, likely due to medication noncompliance, VS otherwise WNL, afebrile, normal neurological exam without focal deficits, physical exam findings as above. Given reported symptoms and physical exam findings, initial differential includes acute anxiety, bipolar disorder, medication misuse, medication noncompliance. Will order normal dose of lisinopril and nursing will attempt to verify methadone. Labs unremarkable, no evidence of infection on urinalysis. Urine drug screen positive for amphetamines and marijuana. Negative COVID. Will clear medically for care team evaluation and placed on physician observation. Differential Diagnosis Differential Diagnoses: The differential diagnosis associated with the presentation includes As per MDM. Admission/Observation Consideration of admission/observation: Escalation of care including admission/observation considered Consult Healthcare Provider Management of the patient was discussed with: Behavioral Health Provider Lab Data [facility] Lab Attestation statement: I reviewed the patient's lab results. As per MDM. 11/10/23 12:23 11/10/23 12:23 Labs: Lab Results 11/10/23 Range/Units 12:23 WBC 9.8 (4.8-10.8) X10*3/uL RBC 4.61 (4.60-5.80) X10*6/uL Hgb 14.7 (14.0-18.0) g/dl Hct 42.6 (42.0-52.0) % MCV 92.4 (80.0-98.0) fL MCH 31.9 (27.0-33.0) pg MCHC 34.5 (31.0-36.0) g/dl RDW 12.3 (11.0-16.0) % Plt Count 253 (160-400) X10*3/uL MPV 10.3 (9.4-12.4) fL Immature Gran % (Auto) 0.4 (0.0-0.4) % Neut % (Auto) 81.3 H (45-73) % Lymph % (Auto) 14.0 L (20-40) % Gladwin % (Auto) 3.8 (2-11) % Eos % (Auto) 0.1 (0-4) % Baso % (Auto) 0.4 (0-2) % Lymph # (Auto) 1.4 (1.2-4.9) X10*3/uL Gladwin # (Auto) 0.4 (0.1-1.2) X10*3/uL Eos # (Auto) 0.0 (0.0-0.4) X10*3/uL Baso # (Auto) 0.0 (0.0-0.2) X10*3/uL Abs Immat Gran (auto) 0.04 H (0.00-0.03) X10*3/uL Absolute Neuts (auto) 8.0 (2.0-8.3) x10*3/uL Absolute Nucleated RBC 0.000 (0.0-0.012) X10*3/uL Nucleated RBC % (auto) 0.0 (0.0-0.2) /100WBC Sodium 137 (135-145) mmol/L Potassium 3.9 (3.3-5.1) mmol/L Chloride 100 (96-108) mmol/L Carbon Dioxide 25 (22-29) mmol/L Anion Gap 16 (12-20) BUN 12 (9-16) mg/dL Creatinine 0.85 (0.5-1.4) mg/dL Estim Creat Clear Calc 166.3 Estimated GFR > 60 Random Glucose 115 (60-115) mg/dL Calcium 10.1 (8.4-10.2) mg/dL Total Bilirubin 0.6 (0.0-1.0) mg/dL AST 23 (5-37) U/L ALT 32 (0-40) U/L Alkaline Phosphatase 83 (39-117) U/L Total Protein 8.5 H (6.5-8.0) g/dL Albumin 4.3 (3.5-5.0) g/dL Urine Color Dark Yellow Urine Appearance Clear Urine pH 6.5 (5.0-9.0) Ur Specific Cochran >= 1.030 H (1.005-1.025) Urine Protein 30 (1+) H (Neg-Trace) mg/dL Urine Glucose (UA) Negative (Negative) mg/dL Urine Ketones 40 (Negative) mg/dL Urine Blood Negative (Negative) Urine Nitrite Negative (Negative) Ur Leukocyte Esterase Trace H (Negative) Urine RBC 0-2 (0-2) /HPF Urine WBC 0-5 (0-5) /HPF Ur Squamous Epith Cells 0-2 (0-2) /HPF Calcium Oxalate Crystal Present Urine Bacteria None Seen (None Seen) Hyaline Casts 0-2 (0-2) /LPF Urine Opiates Screen Not Detected (Not Detect) Urine Fentanyl Screen Not Detected (Not Detect) Ur Barbiturates Screen Not Detected (Not Detect) Ur Phencyclidine Scrn Not Detected (Not Detect) Ur Amphetamines Screen POSITIVE H (Not Detect) U Benzodiazepines Scrn Not Detected (Not Detect) Urine Cocaine Screen Not Detected (Not Detect) U Marijuana (THC) Screen POSITIVE H (Not Detect) Ethyl Alcohol < 10 mg/dL COVID-19 (HARRY) Negative (Negative) COVID-19 Clin Com See Note External Record Review External record reviewed: Inpatient record, Office record and Outpatient record Discharge Plan Discharge Clinical Impression: Bipolar disorder, Acute anxiety, Hypertension Patient Disposition: Still a Patient Prescriptions: No Action ziprasidone HCl 80 mg capsule 80 mg PO BID clonazepam 1 mg tablet 1 mg PO TID tamsulosin 0.4 mg capsule 0.4 mg PO DAILY trazodone 100 mg tablet 150 mg PO BEDTIME dextroamphetamine-amphetamine 20 mg tablet 1 tab PO BID lorazepam 1 mg tablet 1 mg PO TID
[2023-11-10 11:48] VITALS: BP 174/117; PULSE 97; RESP 20; TEMP 36; O2SAT 97; BMI 31.2
--- NOTE | 2023-11-10 12:08 | PC.NURSE ---
per patient he has been over using his ativan within the past 6 days but abruptly stopped taking it. Patient is hyperverbal, scattered though process during introduction. Difficulty sitting still at this time. Agreeable to plan of care for blood work and physican ronal
[2023-11-10] MEDS: LORazepam 1 MG TABLET 2 MG PO ×2 (12:26→16:16)
--- NOTE | 2023-11-10 12:45 | PC.NURSE ---
Pt did become agitated with MHT Braulio and Security Tommy, requesting to leave. This RN redirected patient back to bathroom to change. pt medicated with Ativan 2mg PO, took willingly. blood work drawn, patient now resting on stretcher, respirations even and unlabored, no apparent distress at this time Patient does appear to be rather paranoid, flight of ideas, non-linear though process, talking about his past childhood, then jumping to talk about snorting Ativan, then to his child
[2023-11-10 12:47] LABS: MANUAL DIFF FLAG NO
[2023-11-10 12:48] LABS: Basophils Percent Auto 0.4 % (0-2); Eosinophils Percent Auto 0.1 % (0-4); Hematocrit 42.6 % (42.0-52.0); Hemoglobin 14.7 g/dl (14.0-18.0); Imm Gran Abs Auto 0.04 X10*3/uL (0.00-0.03); Imm Gran Pct Auto 0.4 % (0.0-0.4); Lymphocytes Absolute Auto 1.4 X10*3/uL (1.2-4.9); Mean Corpuscular HGB Conc 34.5 g/dl (31.0-36.0); Mean Corpuscular Hemoglobin 31.9 pg (27.0-33.0); Mean Corpuscular Volume 92.4 fL (80.0-98.0); Mean Platelet Volume 10.3 fL (9.4-12.4); Monocytes Absolute Auto 0.4 X10*3/uL (0.1-1.2); Monocytes Percent Auto 3.8 % (2-11); Neutrophils Percent Auto 81.3 % (45-73); Platelet Count 253 X10*3/uL (160-400); Red Blood Count 4.61 X10*6/uL (4.60-5.80); Red Cell Distribution Width 12.3 % (11.0-16.0); White Blood Count 9.8 X10*3/uL (4.8-10.8)
[2023-11-10 12:49] LABS: Appearance Urine Clear; Color Urine Dark Yellow; Glucose Urine UA Negative (Negative); Leukocyte Esterase Urine Trace (Negative); Nitrite Urine Negative (Negative); PH 6.5 (5.0-9.0); Specific Gravity - Urine >= 1.030 (1.005-1.025); UMIC TRIGGER UACC YES; Urine Blood Negative (Negative); Urine Ketones 40 mg/dL (Negative); Urine Protein 30 (1+) mg/dL (Neg-Trace)
[2023-11-10 12:56] LABS: Amphetamine Screen Urine POSITIVE (Not Detect); Barbiturates, Urine Not Detected (Not Detect); Benzodiazepines Screen Urine Not Detected (Not Detect); Cannabinoid Screen Urine POSITIVE (Not Detect); Cocaine Screen Urine Not Detected (Not Detect); Fentanyl, urine Not Detected (Not Detect); Opiate Screen Urine Not Detected (Not Detect); Phencyclidine Screen Urine Not Detected (Not Detect)
[2023-11-10 12:59] LABS: Bacteria Urine None Seen (None Seen); Calcium Oxalate Crystals Urine Present; Hyaline Casts Urine 0-2 /LPF (0-2); RBC Urine 0-2 /HPF (0-2); Squamous Epithelial Cell Urine 0-2 /HPF (0-2); WBC Urine 0-5 /HPF (0-5)
[2023-11-10 13:00] LABS: COVID-19 Test Negative (Negative); IDNOW Serial# 9DB6401D
--- NOTE | 2023-11-10 13:05 | PC.NURSE ---
RE: med rec patient med rec completed by this RN. Medications verified with patient verbally
[2023-11-10 13:06] VITALS: RESP 14
[2023-11-10 13:06] LABS: Alanine Aminotransferase 32 U/L (0-40); Albumin Level 4.3 g/dL (3.5-5.0); Alkaline Phosphatase 83 U/L (39-117); Anion Gap 16 (12-20); Aspartate Amino Transferase 23 U/L (5-37); Bilirubin Total 0.6 mg/dL (0.0-1.0); Blood Urea Nitrogen 12 mg/dL (9-16); Calcium 10.1 mg/dL (8.4-10.2); Carbon Dioxide 25 mmol/L (22-29); Chloride 100 mmol/L (96-108); Creatinine Clr Calc Pharmacy 166.3; Estimated Glomerular Filt Rate > 60; Ethanol < 10 mg/dL; Glucose Random 115 mg/dL (60-115); Potassium 3.9 mmol/L (3.3-5.1); Sodium 137 mmol/L (135-145); Total Protein 8.5 g/dL (6.5-8.0)
[2023-11-10] MEDS: lisinopriL 10 MG TABLET PO (13:18)
[2023-11-10 14:25] VITALS: BP 143/100; PULSE 84; RESP 20; TEMP 36.6; O2SAT 97
--- NOTE | 2023-11-10 16:24 | PC.NURSE ---
pt is continuing to have increasingly paranoid thoughts, accusing this RN and OMAR Ramsey of talking about him, doing things to his phone. Pt is able to be verbally re-directed. pt did become verbally aggressive with another patient. OMAR Ramsey was able to redirect the other patient while this RN was able to redirect this pt
--- NOTE | 2023-11-10 17:17 | PC.NURSE ---
pt requesting to talk with someone, this RN sat with patient as he expressed his concern that he was going to go to alf due to using his medications too frequently, this RN validated patient's feelings. Pts eye contact is intense throughout conversation, very hyperverbal, unable to redirect at certain points in the conversation. Pt was offered another 2mg Ativan which he took willingly. Pt is now sleeping, respirations even and unlabored, no apparent distress
--- NOTE | 2023-11-10 17:55 | PC.NURSE ---
pts girlfriend Esther called, , would like to see patient if/when he wakes up
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
--- NOTE | 2023-11-11 | ECG_ITS ---
Test Reason : MED CLEARANCE Blood Pressure : / mmHG Vent. Rate : 069 BPM Atrial Rate : 069 BPM P-R Int : 164 ms QRS Dur : 084 ms QT Int : 418 ms P-R-T Axes : 010 016 028 degrees QTc Int : 447 ms Normal sinus rhythm with sinus arrhythmia Normal ECG When compared with ECG of 06-NOV-2022 15:21, No significant change was found Referred By: Andi Xie Electronically Signed By:Miles Waters
[2023-11-11 03:40] VITALS: BP 128/75; PULSE 73; RESP 18; TEMP 36.7; O2SAT 98
[2023-11-11] MEDS: LORazepam 1 MG TABLET 2 MG PO (04:17)
--- NOTE | 2023-11-11 10:21 | PC.NURSE ---
Patient was hiding under blanket wretching. This nurse asked md for zofran for nausea was given but patient refused med. Patient had glasses in his hand and snapped metal arm off of them. Glasses were retrieved but patient tried to physically hurt self after glasses were removed. All blankets and pillow cases were removed. charge nurse and supervisor in circuit testing aware.
--- NOTE | 2023-11-11 10:28 | PC.NURSE ---
MD farmer in to see patient
--- NOTE | 2023-11-11 10:50 | MHC.CARE ---
Patient seen by CARE team, he is to be admitted inpatient psychiatric, [facility] adult bed search.
--- NOTE | 2023-11-11 10:59 | PC.NURSE ---
Assumed care of patient at 1100, per previous RN patient was beginning to engage in self harming behavior (ie: attempting to choke himself out, breaking his glasses, hold gown against neck). Pt had all linens removed for safety, patient also has 1:1
--- NOTE | 2023-11-11 11:15 | PC.NURSE ---
Patient increasing in agitation, attempting to rip pillow apart. OMAR Clark entered room to take pillow away. This RN entered room as well and security was called. Patient willing to engage in conversation with this RN. MD Anne-Marie cruz
[2023-11-11] MEDS: Nicotine 21 MG PATCH.TD24 TRANSDERMA (11:31)
[2023-11-11] MEDS: HaloperidoL 5 MG TABLET 10 MG PO (11:33)
--- NOTE | 2023-11-11 12:57 | PHA.MEDREC ---
Pharmacy Consult ? Medication Reconciliation Pharmacy has completed the medication reconciliation. Patient was sleeping when went to conduct med rec. Called pt's SHERON Santana ([phone]) who confirmed meds.
[2023-11-11] MEDS: LORazepam 1 MG TABLET PO ×2 (14:38→20:41)
[2023-11-11] MEDS: clonazePAM 1 MG TABLET PO ×2 (14:38→20:41)
[2023-11-11] MEDS: Ziprasidone 80 MG CAPSULE PO ×2 (14:38→20:41)
[2023-11-11] MEDS: Tamsulosin HCL 0.4 MG CAPSULE PO (14:38)
[2023-11-11 14:42] VITALS: BP 146/89; PULSE 67; RESP 15; TEMP 36.4; O2SAT 97
[2023-11-11] MEDS: Amphetamine Mixed Salts 20 MG TABLET PO ×2 (15:04→20:41)
--- NOTE | 2023-11-11 18:12 | PC.NURSE ---
Pt has been sleeping, respriations even and unlabored, no apparent distress. Continue plan of care for inpatient admission
--- NOTE | 2023-11-11 19:03 | PC.NURSE ---
patient appears to remain at rest at present respirations are even and unlabored patient appears in no distress.
[2023-11-11] MEDS: traZODone HCL 50 MG TABLET 150 MG PO (20:41)
[2023-11-11 20:46] VITALS: BP 139/86; PULSE 90; RESP 18; TEMP 36.7; O2SAT 97
[2023-11-12] VITALS (7 sets, daily range): BP systolic 117–150; BP diastolic 70–98; PULSE 100–118; RESP 16–18; TEMP 36.6–37.1; O2SAT 95–97; BMI 37.2
--- NOTE | 2023-11-12 07:20 | PC.NURSE ---
PT IS SLEEPING RESP EVEN AND UNLABORED.
[2023-11-12] MEDS: LORazepam 1 MG TABLET PO ×3 (07:46→22:28)
[2023-11-12] MEDS: Amphetamine Mixed Salts 20 MG TABLET PO (07:46)
[2023-11-12] MEDS: clonazePAM 1 MG TABLET PO ×3 (07:46→21:10)
[2023-11-12] MEDS: Ziprasidone 80 MG CAPSULE PO ×2 (07:46→21:10)
[2023-11-12] MEDS: Tamsulosin HCL 0.4 MG CAPSULE PO (07:46)
--- NOTE | 2023-11-12 07:50 | PC.NURSE ---
PT IS AWAKE, SITTING IN THE CHAIR IN HIS ROOM. ALL LINEN/BREAKFAST REMOVED FROM THE ROOM. PT IS REFUSING HIS MEDS WITH A POINTED FINGER AND NODDING NO AT THIS TIME. PT IS CALM , BUT UNCO-OP WITH TAKING HIS MEDS. WILL CONTINUE TO MONITOR.
--- NOTE | 2023-11-12 08:21 | PC.NURSE ---
PT TOOK HIS MEDS WITH THE HELP OF ADMINISTRATIVE INTERN PERIPHERAL VASCULAR TECH (KALIE) AT BEDSIDE. PT STATES THAT HE IS +SI. PT CONTINUES TO SIT IN HIS CHAIR IN THE ROOM. WILL CONTINUE TO MONITOR.
--- NOTE | 2023-11-12 08:38 | PC.NURSE ---
PT'S GIRLFRIEND (GORGE, ) CALLED AND WAS UPDATED ON PT STATUS. GIRLFRIEND STATES THAT SHE WILL BE COMING LATER TO VISIT PT. PT IS AWARE.
--- NOTE | 2023-11-12 09:52 | PC.NURSE ---
PT'S GIRLFRIEND (GORGE) IS AT BEDSIDE.
[2023-11-12] MEDS: Ibuprofen 600 MG TABLET PO (11:17)
[2023-11-12 12:25] LABS: COVID-19 Test Negative (Negative); IDNOW Serial# 08D9AD1C
--- NOTE | 2023-11-12 12:25 | PC.NURSE ---
Assumed care of patient at 1100, per previous RN morning techs, patient was unable to maintain safety again this morning, trying to choke himself out with bed sheet and pillow case. Those items were removed from his room. Pt did sign CV for treatment, is aware he will be going inpt. At approximately 1220, this rn observed patient wrapping gown around his neck. This RN immediately entered patients room with OMAR Clark to remove the gown. Pt initially refused and was holding onto the gown and not letting go but within 30 seconds patient let go of the gown. This RN stayed with patient for about 5 minutes after his attempt to choke himself out. Pts respirations maintained well, 14-16 RR per min. Pt adamantly refusing other vital signs. Attempted to just get pulse ox, pt yelled do not touch me . Pt continues to refuse vital signs at this time. Currently sitting in chair upright, appears to be in no apparent distress at this time
--- NOTE | 2023-11-12 18:02 | PC.ADMIT ---
Pt was admitted to [facility] on 11/12/23 at 1415 from [facility]. He was admitted secondary to disorganization, and increase in anxiety. He reports sometimes hearing voices but is not currently endorsing SI/HI/AVH. It was reported that while down in the ED this AM, he attempted to tie a sudhakar around his neck. He is A&O x 4 and was calm and cooperative during admission assessment. He reports difficulty with reading and writing and reports difficulty seeing secondary to not having his glasses as they are currently broken. He appears to be flat and depressed but was pleasant upon approach. He does not appear to be paranoid/suspicious at this time but has a history of paranoia/suspicion. He reports chronic sleep difficulties, and that he was supposed to be scheduled for a sleep study but has not yet had one. He does not report unintentional weight loss or poor appetite. He tested positive for Marijuana and amphetamines, he reports daily THC use and is on prescribed Adderall. He also reports a 2 PPD cigarette use, and requested nicotine replacement with a patch. He has a reported history of HTN but does not report any other issues. Skin check completed by BRADY and Edith Carbajal RN, notable laceration on forehead, R elbow and superficial scratches on R wrist/forearm, no signs of infection. Pt was placed on 5 min checks due to event in the ED for safety.
[2023-11-12] MEDS: traZODone HCL 50 MG TABLET 150 MG PO (21:10)
[2023-11-13 08:21] VITALS: BP 124/85; PULSE 125; RESP 14; TEMP 36.6; O2SAT 95
[2023-11-13 08:36] LABS: Estimated Average Glucose 97 mg/dL
[2023-11-13] MEDS: Nicotine 21 MG PATCH.TD24 TRANSDERMA (08:37)
[2023-11-13] MEDS: lisinopriL 10 MG TABLET PO (08:38)
[2023-11-13] MEDS: clonazePAM 1 MG TABLET PO ×3 (08:38→21:43)
[2023-11-13] MEDS: Tamsulosin HCL 0.4 MG CAPSULE PO (08:38)
[2023-11-13] MEDS: Ziprasidone 80 MG CAPSULE PO ×2 (08:38→21:42)
[2023-11-13] MEDS: LORazepam 1 MG TABLET PO ×3 (08:38→21:43)
[2023-11-13 08:55] LABS: Cholesterol 218 mg/dL (<200); HDL Cholesterol 24 mg/dL (>40); LDL Cholesterol Calculated 164 mg/dL (<100); Triglycerides 151 mg/dL (<150)
[2023-11-13 09:08] LABS: Free T4 (Free Thyroxine) 1.37 ng/dL (0.71-1.85); Thyroid Stimulating Hormone 1.01 uIU/mL (0.32-4.0)
[2023-11-13 09:25] LABS: Folate 15.7 ng/mL (> or = 4.0); Vitamin B12 950 pg/mL (200-900)
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
[2023-11-13] MEDS: Acetaminophen 325 MG TABLET 650 MG PO (09:45)
[2023-11-13 13:05] LABS: Amphetamine Screen Urine POSITIVE (Not Detect); Barbiturates, Urine Not Detected (Not Detect); Benzodiazepines Screen Urine POSITIVE (Not Detect); Cannabinoid Screen Urine POSITIVE (Not Detect); Cocaine Screen Urine Not Detected (Not Detect); Fentanyl, urine Not Detected (Not Detect); Opiate Screen Urine Not Detected (Not Detect); Phencyclidine Screen Urine Not Detected (Not Detect)
[2023-11-13] MEDS: hydrOXYzine HCL 25 MG TABLET PO (14:42)
--- NOTE | 2023-11-13 18:40 | PC.NURSE ---
Pt's tomás Terry told TW his methadone dose was 75 mg at home and has bottle at home. Willing to bring in.
[2023-11-13 19:50] VITALS: BP 123/71; PULSE 107; RESP 16; TEMP 36.4; O2SAT 97
[2023-11-13] MEDS: traZODone HCL 50 MG TABLET 150 MG PO (21:42)
[2023-11-14 08:55] VITALS: BP 117/78; PULSE 113; RESP 14; TEMP 36.5; O2SAT 98
[2023-11-14] MEDS: Nicotine 21 MG PATCH.TD24 TRANSDERMA (09:07)
[2023-11-14] MEDS: LORazepam 1 MG TABLET PO (09:08)
[2023-11-14] MEDS: Tamsulosin HCL 0.4 MG CAPSULE PO (09:08)
[2023-11-14] MEDS: clonazePAM 1 MG TABLET PO (09:08)
[2023-11-14] MEDS: lisinopriL 10 MG TABLET PO (09:08)
[2023-11-14] MEDS: Ziprasidone 80 MG CAPSULE PO (09:08)
[2023-11-14] MEDS: methADONE HCl 20 MG/2 ML ORAL.CONC 30 MG PO (10:17)
[2023-11-14] MEDS: clonazePAM 1 MG TABLET 1.25 MG PO ×2 (14:50→21:49)
[2023-11-14] MEDS: methADONE HCl 20 MG/2 ML ORAL.CONC 10 MG PO (14:51)
--- NOTE | 2023-11-14 15:39 | HO.PSYCHPN ---
Subjective Subjective Date of Service: 11/14/23 Reason For Visit: SI Interim History: calm, cooperative. seen with LESLIE Ambrosio. asks for help with depression and paranoia. some CAH to hurt himself, some AH talking about him. can't make out the details. reviews his habit of snorting his medications, both adderall and benzos. seems agreeable today to taper off of those medications as not healthy for him to be on. interested in new therapist and meds provider. discusses with MD medications strategy. will DC ativan and begin klonopin taper. will DC geodon and start haldol. per staff, dep/anx 5 eves. slept 7 hours. Mental Status Exam Mental Status Exam Narrative: adeqautely dressed in sudhakar. disheveled. no PMA/PMR. cooperative. speech somewhat muffled and soft, nml amount and rate, decr loudness, incr latency. thoughts linear and logical. affect constricted, hypo-intense, non-labile. mood depressed and anxious. no SI/HI/VH expressed. +AH. Diagnostics Vital Signs (24Hr): Vital Signs - 24 hr 11/13/23 19:50 11/14/23 08:55 Temperature 97.5 F 97.7 F Pulse Rate 107 H 113 H Respiratory Rate 16 14 Blood Pressure 123/71 117/78 Pulse Oximetry 97 98 Oxygen Delivery Method Room Air Room Air BMI result Body Mass Index 37.2 Labs 11/10/23 12:23 11/10/23 12:23 Labs: Laboratory Results - last 48 hr 11/13/23 11/13/23 08:08 11:02 Estimat Average Glucose 97 Hemoglobin A1c % 5.0 Triglycerides 151 H Cholesterol 218 H LDL Cholesterol, Calc 164 H HDL Cholesterol 24 L Vitamin B12 950 H Folate 15.7 TSH 1.01 Free T4 1.37 Urine Opiates Screen Not Detected Urine Fentanyl Screen Not Detected Ur Barbiturates Screen Not Detected Ur Phencyclidine Scrn Not Detected Ur Amphetamines Screen POSITIVE H U Benzodiazepines Scrn POSITIVE H Urine Cocaine Screen Not Detected U Marijuana (THC) Screen POSITIVE H Medications Medications Current Medications Acetaminophen (Acetaminophen 325 Mg Tablet) 650 mg PO Q6H PRN PRN Reason: Headache/Pain Mild Scale (1-3) Last Admin: 11/13/23 09:45 Dose: 650 mg Al Hydroxide/Mg Hydroxide (Magnesium Hydrox/Alum Hydrox 30 Ml Oral.Susp) 30 ml PO Q6H PRN PRN Reason: Heartburn/Nausea Albuterol Sulfate (Albuterol Sulfate 90 Mcg 8 Gm Inhaler) 2 puff INHALE Q6H PRN PRN Reason: wheezing Clonazepam (Clonazepam 1 Mg Tablet) 1.25 mg PO TID [facility] Last Admin: 11/14/23 14:50 Dose: 1.25 mg Haloperidol (Haloperidol 5 Mg Tablet) 5 mg PO BID [facility] Hydroxyzine HCl (Hydroxyzine Hcl 25 Mg Tablet) 25 mg PO BID [facility] Lisinopril (Lisinopril 10 Mg Tablet) 10 mg PO DAILY [facility]; Protocol Last Admin: 11/14/23 09:08 Dose: 10 mg Magnesium Hydroxide (Milk Of Magnesia 30 Ml Oral.Susp) 30 ml PO DAILY PRN PRN Reason: Constipation Nicotine (Nicotine 21 Mg Patch.Td24) 21 mg TRANSDERMA DAILY [facility] Last Admin: 11/14/23 09:07 Dose: 21 mg Nicotine Polacrilex (Nicotine Polacrilex 2 Mg Gum) 4 mg BUCCAL Q2H PRN PRN Reason: Nicotine Cravings Tamsulosin HCl (Tamsulosin Hcl 0.4 Mg Capsule) 0.4 mg PO DAILY [facility] Last Admin: 11/14/23 09:08 Dose: 0.4 mg Trazodone HCl (Trazodone Hcl 50 Mg Tablet) 150 mg PO BEDTIME [facility] Last Admin: 11/13/23 21:42 Dose: 150 mg Allergies Allergies Allergy/AdvReac Type Severity Reaction Status Date / Time No Known Allergies Allergy Verified 11/10/23 11:52 [No Known Allergies*] Assessment & Plan Assessment & Plan (1) Unspecified psychosis: Status: Acute Code(s): F29 - Unspecified psychosis not due to a substance or known physiological condition (2) Opioid use disorder: Status: Acute Code(s): F11.90 - Opioid use, unspecified, uncomplicated (3) Benzodiazepine abuse: Status: Acute Code(s): F13.10 - Sedative, hypnotic or anxiolytic abuse, uncomplicated Plan 11/13: continue current medications for now. collect collateral from outpt provider. urine benzo NEG. no methadone test done - collect urine for methadone. give methadone 30 mg today, until outpt dosing can be verified. 11/14: outpt methadone dosing verified as 75 mg on 11/11. given 40 mg today. concern for oversedation due to benzo dosing as well. DC ativan and begin klonopin taper. DC geodon and start haldol 5 BID of AH. add hydroxyzine 25 BID for EPS prophylaxis. T/C SSRI for depression/anxiety (appears to have PTSD as well). Reason for continued inpatient stay Substantial Risk for: inability to function and rapid decompensation Time Spent With Patient Time: Total time managing care of this patient today __35__ minutes.
[2023-11-14 21:30] VITALS: BP 166/79; PULSE 86; RESP 16; TEMP 36.2; O2SAT 99
[2023-11-14] MEDS: traZODone HCL 50 MG TABLET 150 MG PO (21:47)
[2023-11-14] MEDS: HaloperidoL 5 MG TABLET PO (21:48)
[2023-11-14] MEDS: hydrOXYzine HCL 25 MG TABLET PO (21:48)
[2023-11-15 07:48] VITALS: BP 140/97; PULSE 116; RESP 18; TEMP 36.2; O2SAT 97
[2023-11-15] MEDS: hydrOXYzine HCL 25 MG TABLET PO ×2 (08:52→20:37)
[2023-11-15] MEDS: lisinopriL 10 MG TABLET PO (08:52)
[2023-11-15] MEDS: Nicotine 21 MG PATCH.TD24 TRANSDERMA (08:52)
[2023-11-15] MEDS: clonazePAM 1 MG TABLET 1.25 MG PO ×2 (08:52→16:58)
[2023-11-15] MEDS: Tamsulosin HCL 0.4 MG CAPSULE PO (08:52)
[2023-11-15] MEDS: HaloperidoL 5 MG TABLET PO ×2 (08:52→20:37)
[2023-11-15] MEDS: methADONE HCl 20 MG/2 ML ORAL.CONC 40 MG PO (08:53)
[2023-11-15 10:45] VITALS: BMI 38.1
[2023-11-15] MEDS: polyethylene glycoL 3350 17 GM POWD.PACK PO (12:30)
[2023-11-15] MEDS: methADONE HCl 20 MG/2 ML ORAL.CONC 10 MG PO (12:40)
--- NOTE | 2023-11-15 15:37 | P.PNPSI_ITS ---
Subjective Subjective Date of Service: 11/15/23 Reason For Visit: SI Interim History: calm, cooperative. asking for miralax. not sedated, agreeable to get another 10 mg of methadone today. some restlessness last night at bedtime. no c/o side effects from haldol (otherwise); unclear if restlessness is opioid withdrawal or akathisia. per staff, eating 50% meals. taking meds, attending group. +CAH to hurt self. some paranoia. Mental Status Exam Mental Status Exam Narrative: adequately dressed in street clothes. disheveled. no PMA/PMR. cooperative. speech somewhat muffled and soft, nml amount and rate, decr loudness, incr latency. thoughts linear and logical. affect constricted, hypo-intense, non- labile. mood depressed and anxious. no SI/HI/VH expressed. +AH. Diagnostics Vital Signs (24Hr): Vital Signs - 24 hr 11/14/23 21:30 11/15/23 07:48 Temperature 97.2 F 97.1 F Pulse Rate 86 116 H Respiratory Rate 16 18 Blood Pressure 166/79 H 140/97 H Pulse Oximetry 99 97 Oxygen Delivery Method Room Air Room Air BMI result Body Mass Index 38.1 Labs 11/10/23 12:23 11/10/23 12:23 Medications Medications Current Medications Acetaminophen (Acetaminophen 325 Mg Tablet) 650 mg PO Q6H PRN PRN Reason: Headache/Pain Mild Scale (1-3) Last Admin: 11/13/23 09:45 Dose: 650 mg Al Hydroxide/Mg Hydroxide (Magnesium Hydrox/Alum Hydrox 30 Ml Oral.Susp) 30 ml PO Q6H PRN PRN Reason: Heartburn/Nausea Albuterol Sulfate (Albuterol Sulfate 90 Mcg 8 Gm Inhaler) 2 puff INHALE Q6H PRN PRN Reason: wheezing Clonazepam (Clonazepam 1 Mg Tablet) 1.25 mg PO TID [facility] Last Admin: 11/15/23 08:52 Dose: 1.25 mg Haloperidol (Haloperidol 5 Mg Tablet) 5 mg PO BID [facility] Last Admin: 11/15/23 08:52 Dose: 5 mg Hydroxyzine HCl (Hydroxyzine Hcl 25 Mg Tablet) 25 mg PO BID [facility] Last Admin: 11/15/23 08:52 Dose: 25 mg Lisinopril (Lisinopril 10 Mg Tablet) 10 mg PO DAILY [facility]; Protocol Last Admin: 11/15/23 08:52 Dose: 10 mg Magnesium Hydroxide (Milk Of Magnesia 30 Ml Oral.Susp) 30 ml PO DAILY PRN PRN Reason: Constipation Methadone HCl (Methadone Hcl 20 Mg/2 Ml Oral.Conc) 50 mg PO DAILY [facility] Nicotine (Nicotine 21 Mg Patch.Td24) 21 mg TRANSDERMA DAILY [facility] Last Admin: 11/15/23 08:52 Dose: 21 mg Nicotine Polacrilex (Nicotine Polacrilex 2 Mg Gum) 4 mg BUCCAL Q2H PRN PRN Reason: Nicotine Cravings Polyethylene Glycol (Polyethylene Glycol 3350 17 Gm Powd.Pack) 17 gm PO DAILY [facility] Last Admin: 11/15/23 12:30 Dose: 17 gm Tamsulosin HCl (Tamsulosin Hcl 0.4 Mg Capsule) 0.4 mg PO DAILY [facility] Last Admin: 11/15/23 08:52 Dose: 0.4 mg Trazodone HCl (Trazodone Hcl 50 Mg Tablet) 150 mg PO BEDTIME [facility] Last Admin: 11/14/23 21:47 Dose: 150 mg Allergies Allergies Allergy/AdvReac Type Severity Reaction Status Date / Time No Known Allergies Allergy Verified 11/10/23 11:52 [No Known Allergies*] Assessment & Plan Assessment & Plan (1) Unspecified psychosis: Status: Acute Code(s): F29 - Unspecified psychosis not due to a substance or known physiological condition (2) Opioid use disorder: Status: Acute Code(s): F11.90 - Opioid use, unspecified, uncomplicated (3) Benzodiazepine abuse: Status: Acute Code(s): F13.10 - Sedative, hypnotic or anxiolytic abuse, uncomplicated Plan 11/13: continue current medications for now. collect collateral from outpt provider. urine benzo NEG. no methadone test done - collect urine for methadone. give methadone 30 mg today, until outpt dosing can be verified. 11/14: outpt methadone dosing verified as 75 mg on 11/11. given 40 mg today. concern for oversedation due to benzo dosing as well. DC ativan and begin klonopin taper. DC geodon and start haldol 5 BID of AH. add hydroxyzine 25 BID for EPS prophylaxis. T/C SSRI for depression/anxiety (appears to have PTSD as well). 11/15: titrating methadone. 50 mg tomorrow, with likely another 10 mg later in the day. decrease klonopin by 0.25 mg each dose tomorrow. discuss starting SSRI tomorrow. experiencing some restlessness at night, unclear if opioid withdrawal or akathisia. Reason for continued inpatient stay Substantial Risk for: harm to self, inability to function and rapid decompensation Time Spent With Patient Time: Total time managing care of this patient today __25__ minutes.
[2023-11-15 20:10] VITALS: BP 130/72; PULSE 99; RESP 16; TEMP 36.2; O2SAT 98
[2023-11-15] MEDS: clonazePAM 1 MG TABLET PO (20:36)
[2023-11-15] MEDS: traZODone HCL 50 MG TABLET 150 MG PO (20:37)
[2023-11-15] MEDS: clonazePAM 0.5 MG TABLET 0.25 MG PO (20:39)
[2023-11-16 07:20] VITALS: BP 116/68; PULSE 98; RESP 16; TEMP 36.6; O2SAT 93
[2023-11-16] MEDS: Nicotine 21 MG PATCH.TD24 TRANSDERMA (08:45)
[2023-11-16] MEDS: polyethylene glycoL 3350 17 GM POWD.PACK PO (08:46)
[2023-11-16] MEDS: hydrOXYzine HCL 25 MG TABLET PO ×2 (08:46→21:21)
[2023-11-16] MEDS: methADONE HCl 20 MG/2 ML ORAL.CONC 50 MG PO (08:46)
[2023-11-16] MEDS: lisinopriL 10 MG TABLET PO (08:46)
[2023-11-16] MEDS: Tamsulosin HCL 0.4 MG CAPSULE PO (08:47)
[2023-11-16] MEDS: clonazePAM 1 MG TABLET PO ×3 (08:47→21:21)
[2023-11-16] MEDS: HaloperidoL 5 MG TABLET PO ×2 (08:47→21:21)
[2023-11-16] MEDS: clonazePAM 0.5 MG TABLET 0.25 MG PO (08:47)
[2023-11-16] MEDS: methADONE HCl 20 MG/2 ML ORAL.CONC 10 MG PO (11:46)
[2023-11-16 20:10] VITALS: BP 129/80; PULSE 92; RESP 18; TEMP 36.3; O2SAT 95
[2023-11-16] MEDS: Mirtazapine 30 MG TABLET PO (21:21)
--- NOTE | 2023-11-16 23:04 | P.PNPSI_ITS ---
Subjective Subjective Date of Service: 11/16/23 Reason For Visit: SI Interim History: calm, cooperative. reports he is feeling better, meds helping. AH very seldom now. mood improved. agreeable to titrate methadone to 70 mg as of tomorrow, to continue klonopin taper, and to DC trazodone and replace it with remeron. per staff, calm, pleasant, cooperative. Mental Status Exam Mental Status Exam Narrative: adequately dressed in street clothes. disheveled. no PMA/PMR. cooperative. speech soft, nml amount and rate, nml loudness, incr latency. thoughts linear and logical. affect constricted, hypo-intense, non-labile. mood improved. no SI/HI/VH expressed. +AH, attenuated. Diagnostics Vital Signs (24Hr): Vital Signs - 24 hr 11/16/23 07:20 11/16/23 20:10 Temperature 97.9 F 97.3 F Pulse Rate 98 92 Respiratory Rate 16 18 Blood Pressure 116/68 129/80 Pulse Oximetry 93 95 Oxygen Delivery Method Room Air Room Air BMI result Body Mass Index 38.1 Labs 11/10/23 12:23 11/10/23 12:23 Medications Medications Current Medications Acetaminophen (Acetaminophen 325 Mg Tablet) 650 mg PO Q6H PRN PRN Reason: Headache/Pain Mild Scale (1-3) Last Admin: 11/13/23 09:45 Dose: 650 mg Al Hydroxide/Mg Hydroxide (Magnesium Hydrox/Alum Hydrox 30 Ml Oral.Susp) 30 ml PO Q6H PRN PRN Reason: Heartburn/Nausea Albuterol Sulfate (Albuterol Sulfate 90 Mcg 8 Gm Inhaler) 2 puff INHALE Q6H PRN PRN Reason: wheezing Clonazepam (Clonazepam 1 Mg Tablet) 1 mg PO TID [facility] Stop: 11/18/23 15:59 Last Admin: 11/16/23 21:21 Dose: 1 mg Clonazepam (Clonazepam 0.5 Mg Tablet) 0.75 mg PO TID [facility] Haloperidol (Haloperidol 5 Mg Tablet) 5 mg PO BID [facility] Last Admin: 11/16/23 21:21 Dose: 5 mg Hydroxyzine HCl (Hydroxyzine Hcl 25 Mg Tablet) 25 mg PO BID [facility] Last Admin: 11/16/23 21:21 Dose: 25 mg Lisinopril (Lisinopril 10 Mg Tablet) 10 mg PO DAILY [facility]; Protocol Last Admin: 11/16/23 08:46 Dose: 10 mg Magnesium Hydroxide (Milk Of Magnesia 30 Ml Oral.Susp) 30 ml PO DAILY PRN PRN Reason: Constipation Methadone HCl (Methadone Hcl 20 Mg/2 Ml Oral.Conc) 70 mg PO DAILY [facility] Mirtazapine (Mirtazapine 30 Mg Tablet) 30 mg PO BEDTIME [facility] Last Admin: 11/16/23 21:21 Dose: 30 mg Mirtazapine (Mirtazapine 15 Mg Tablet) 15 mg PO BEDTIME PRN PRN Reason: insomnia Nicotine (Nicotine 21 Mg Patch.Td24) 21 mg TRANSDERMA DAILY [facility] Last Admin: 11/16/23 08:45 Dose: 21 mg Nicotine Polacrilex (Nicotine Polacrilex 2 Mg Gum) 4 mg BUCCAL Q2H PRN PRN Reason: Nicotine Cravings Polyethylene Glycol (Polyethylene Glycol 3350 17 Gm Powd.Pack) 17 gm PO DAILY [facility] Last Admin: 11/16/23 08:46 Dose: 17 gm Tamsulosin HCl (Tamsulosin Hcl 0.4 Mg Capsule) 0.4 mg PO DAILY [facility] Last Admin: 11/16/23 08:47 Dose: 0.4 mg Allergies Allergies Allergy/AdvReac Type Severity Reaction Status Date / Time No Known Allergies Allergy Verified 11/10/23 11:52 [No Known Allergies*] Assessment & Plan Assessment & Plan (1) Unspecified psychosis: Status: Acute Code(s): F29 - Unspecified psychosis not due to a substance or known physiological condition (2) Opioid use disorder: Status: Acute Code(s): F11.90 - Opioid use, unspecified, uncomplicated (3) Benzodiazepine abuse: Status: Acute Code(s): F13.10 - Sedative, hypnotic or anxiolytic abuse, uncomplicated Plan 11/13: continue current medications for now. collect collateral from outpt provider. urine benzo NEG. no methadone test done - collect urine for methadone. give methadone 30 mg today, until outpt dosing can be verified. 11/14: outpt methadone dosing verified as 75 mg on 11/11. given 40 mg today. concern for oversedation due to benzo dosing as well. DC ativan and begin klonopin taper. DC geodon and start haldol 5 BID of AH. add hydroxyzine 25 BID for EPS prophylaxis. T/C SSRI for depression/anxiety (appears to have PTSD as well). 11/15: titrating methadone. 50 mg tomorrow, with likely another 10 mg later in the day. decrease klonopin by 0.25 mg each dose tomorrow. discuss starting SSRI tomorrow. experiencing some restlessness at night, unclear if opioid withdrawal or akathisia. 11/16: 60 mg methadone today, will increase to 70 mg as of tomorrow. not sedated during day. decrease klonopin from 1.25 mg TID to 1 mg TID for the next two days, then down to 0.75 mg TID. pt c/o restless legs Sx with trazodone, agrees to trial of remeron. Reason for continued inpatient stay Substantial Risk for: inability to function and rapid decompensation Time Spent With Patient Time: Total time managing care of this patient today __25__ minutes.
[2023-11-17 09:20] VITALS: BP 132/77; PULSE 108; RESP 18; TEMP 36.3; O2SAT 97
[2023-11-17] MEDS: Nicotine 21 MG PATCH.TD24 TRANSDERMA (09:21)
[2023-11-17] MEDS: methADONE HCl 20 MG/2 ML ORAL.CONC 70 MG PO (09:22)
[2023-11-17] MEDS: lisinopriL 10 MG TABLET PO (09:23)
[2023-11-17] MEDS: Tamsulosin HCL 0.4 MG CAPSULE PO (09:23)
[2023-11-17] MEDS: clonazePAM 1 MG TABLET PO ×2 (09:24→20:57)
[2023-11-17] MEDS: HaloperidoL 5 MG TABLET PO ×2 (09:24→20:57)
[2023-11-17] MEDS: hydrOXYzine HCL 25 MG TABLET PO (09:24)
--- NOTE | 2023-11-17 11:42 | HO.PSYCHPN ---
Subjective Subjective Date of Service: 11/17/23 Reason For Visit: SI Subjective Notes: Conditional Voluntary Interim History: Pt reports he feels very sedated during the day. He is currently on benzo taper but presenting sedated. He denies SI/HI. He reports he had visit from which went well. He is motivated to continue tx for both substance use and mental health he denies VH/AH. will monitor may have to decrease benzo dose to avoid over sadation. monitor o2sat. Review of Systems Review of Systems As per HPI. Yes all other systems are reviewed and are negative Constitutional: Reports as per HPI Mental Status Exam Mental Status Exam Narrative: adequately dressed in street clothes. disheveled. no PMA/PMR. cooperative. speech soft, nml amount and rate, nml loudness, incr latency. thoughts linear and logical. affect constricted, hypo-intense, non-labile. mood improved. no SI/HI/VH expressed. +AH, attenuated. Diagnostics Vital Signs (24Hr): Vital Signs - 24 hr 11/16/23 20:10 11/17/23 09:20 Temperature 97.3 F 97.3 F Pulse Rate 92 108 H Respiratory Rate 18 18 Blood Pressure 129/80 132/77 Pulse Oximetry 95 97 Oxygen Delivery Method Room Air Room Air BMI result Body Mass Index 38.1 Labs 11/10/23 12:23 11/10/23 12:23 Medications Medications Current Medications Acetaminophen (Acetaminophen 325 Mg Tablet) 650 mg PO Q6H PRN PRN Reason: Headache/Pain Mild Scale (1-3) Last Admin: 11/13/23 09:45 Dose: 650 mg Al Hydroxide/Mg Hydroxide (Magnesium Hydrox/Alum Hydrox 30 Ml Oral.Susp) 30 ml PO Q6H PRN PRN Reason: Heartburn/Nausea Albuterol Sulfate (Albuterol Sulfate 90 Mcg 8 Gm Inhaler) 2 puff INHALE Q6H PRN PRN Reason: wheezing Clonazepam (Clonazepam 1 Mg Tablet) 1 mg PO TID [facility] Stop: 11/18/23 15:59 Last Admin: 11/17/23 09:24 Dose: 1 mg Clonazepam (Clonazepam 0.5 Mg Tablet) 0.75 mg PO TID [facility] Haloperidol (Haloperidol 5 Mg Tablet) 5 mg PO BID [facility] Last Admin: 11/17/23 09:24 Dose: 5 mg Hydroxyzine HCl (Hydroxyzine Hcl 25 Mg Tablet) 25 mg PO BID [facility] Last Admin: 11/17/23 09:24 Dose: 25 mg Lisinopril (Lisinopril 10 Mg Tablet) 10 mg PO DAILY [facility]; Protocol Last Admin: 11/17/23 09:23 Dose: 10 mg Magnesium Hydroxide (Milk Of Magnesia 30 Ml Oral.Susp) 30 ml PO DAILY PRN PRN Reason: Constipation Methadone HCl (Methadone Hcl 20 Mg/2 Ml Oral.Conc) 70 mg PO DAILY [facility] Last Admin: 11/17/23 09:22 Dose: 70 mg Mirtazapine (Mirtazapine 30 Mg Tablet) 30 mg PO BEDTIME [facility] Last Admin: 11/16/23 21:21 Dose: 30 mg Mirtazapine (Mirtazapine 15 Mg Tablet) 15 mg PO BEDTIME PRN PRN Reason: insomnia Nicotine (Nicotine 21 Mg Patch.Td24) 21 mg TRANSDERMA DAILY [facility] Last Admin: 11/17/23 09:21 Dose: 21 mg Nicotine Polacrilex (Nicotine Polacrilex 2 Mg Gum) 4 mg BUCCAL Q2H PRN PRN Reason: Nicotine Cravings Polyethylene Glycol (Polyethylene Glycol 3350 17 Gm Powd.Pack) 17 gm PO DAILY [facility] Last Admin: 11/17/23 09:45 Dose: Not Given Tamsulosin HCl (Tamsulosin Hcl 0.4 Mg Capsule) 0.4 mg PO DAILY [facility] Last Admin: 11/17/23 09:23 Dose: 0.4 mg Allergies Allergies Allergy/AdvReac Type Severity Reaction Status Date / Time No Known Allergies Allergy Verified 11/10/23 11:52 [No Known Allergies*] Assessment & Plan Assessment & Plan (1) Unspecified psychosis: Status: Acute Code(s): F29 - Unspecified psychosis not due to a substance or known physiological condition (2) Opioid use disorder: Status: Acute Code(s): F11.90 - Opioid use, unspecified, uncomplicated (3) Benzodiazepine abuse: Status: Acute Code(s): F13.10 - Sedative, hypnotic or anxiolytic abuse, uncomplicated Plan 11/13: continue current medications for now. collect collateral from outpt provider. urine benzo NEG. no methadone test done - collect urine for methadone. give methadone 30 mg today, until outpt dosing can be verified. 11/14: outpt methadone dosing verified as 75 mg on 11/11. given 40 mg today. concern for oversedation due to benzo dosing as well. DC ativan and begin klonopin taper. DC geodon and start haldol 5 BID of AH. add hydroxyzine 25 BID for EPS prophylaxis. T/C SSRI for depression/anxiety (appears to have PTSD as well). 11/15: titrating methadone. 50 mg tomorrow, with likely another 10 mg later in the day. decrease klonopin by 0.25 mg each dose tomorrow. discuss starting SSRI tomorrow. experiencing some restlessness at night, unclear if opioid withdrawal or akathisia. 11/16: 60 mg methadone today, will increase to 70 mg as of tomorrow. not sedated during day. decrease klonopin from 1.25 mg TID to 1 mg TID for the next two days, then down to 0.75 mg TID. pt c/o restless legs Sx with trazodone, agrees to trial of remeron. 11/17 pt sedated. will wait but may need to decrease benzo scheduled dose. otherwise he feels optimistic about his tx. Reason for continued inpatient stay Substantial Risk for: inability to function Time Spent With Patient Time: Total time managing care of this patient today ____ minutes.
[2023-11-17] MEDS: polyethylene glycoL 3350 17 GM POWD.PACK PO (13:30)
[2023-11-17 14:02] LABS: EDDP (Methadone Metabolite) >15000; Methadone, Urine MS 4300 ng/mL
[2023-11-17 19:30] VITALS: BP 119/74; PULSE 74; RESP 16; TEMP 36.3; O2SAT 99
[2023-11-17] MEDS: Mirtazapine 30 MG TABLET PO (20:57)
[2023-11-18 08:30] VITALS: BP 109/79; PULSE 105; RESP 16; TEMP 36.4; O2SAT 95
[2023-11-18] MEDS: Tamsulosin HCL 0.4 MG CAPSULE PO (08:43)
[2023-11-18] MEDS: lisinopriL 10 MG TABLET PO (08:43)
[2023-11-18] MEDS: polyethylene glycoL 3350 17 GM POWD.PACK PO (08:43)
[2023-11-18] MEDS: Nicotine 21 MG PATCH.TD24 TRANSDERMA (08:43)
[2023-11-18] MEDS: HaloperidoL 5 MG TABLET PO ×2 (08:43→21:06)
[2023-11-18] MEDS: clonazePAM 1 MG TABLET PO (08:43)
[2023-11-18] MEDS: methADONE HCl 20 MG/2 ML ORAL.CONC 70 MG PO (08:44)
[2023-11-18] MEDS: clonazePAM 0.5 MG TABLET PO ×2 (14:52→21:06)
--- NOTE | 2023-11-18 15:39 | HO.PSYCHPN ---
Subjective Subjective Date of Service: 11/18/23 Reason For Visit: SI Subjective Notes: Conditional Voluntary Interim History: Pt continues to report (and has been observed by RN) very sedated during the day. He agreed to lower dose of clonazepam. He denies SI/HI. He is motivated to continue tx for both substance use and mental health he denies VH/AH. will monitor may have to decrease benzo dose to avoid over sadation. monitor o2sat. Review of Systems Review of Systems As per HPI. Yes all other systems are reviewed and are negative Constitutional: Reports as per HPI Mental Status Exam Mental Status Exam Narrative: adequately dressed in street clothes. disheveled. no PMA/PMR. cooperative. speech soft, nml amount and rate, nml loudness, incr latency. thoughts linear and logical. affect constricted, hypo-intense, non-labile. mood improved. no SI/HI/VH expressed. +AH, attenuated. Diagnostics Vital Signs (24Hr): Vital Signs - 24 hr 11/17/23 19:30 11/18/23 08:30 Temperature 97.3 F 97.5 F Pulse Rate 74 105 H Respiratory Rate 16 16 Blood Pressure 119/74 109/79 Pulse Oximetry 99 95 Oxygen Delivery Method Room Air Room Air BMI result Body Mass Index 38.1 Labs 11/10/23 12:23 11/10/23 12:23 Labs: Laboratory Results - last 48 hr 11/13/23 11:02 EDDP ([facility] Metab) >57037 Methadone (GC/MS) 4300 Medications Medications Current Medications Acetaminophen (Acetaminophen 325 Mg Tablet) 650 mg PO Q6H PRN PRN Reason: Headache/Pain Mild Scale (1-3) Last Admin: 11/13/23 09:45 Dose: 650 mg Al Hydroxide/Mg Hydroxide (Magnesium Hydrox/Alum Hydrox 30 Ml Oral.Susp) 30 ml PO Q6H PRN PRN Reason: Heartburn/Nausea Albuterol Sulfate (Albuterol Sulfate 90 Mcg 8 Gm Inhaler) 2 puff INHALE Q6H PRN PRN Reason: wheezing Clonazepam (Clonazepam 0.5 Mg Tablet) 0.5 mg PO TID [facility] Last Admin: 11/18/23 14:52 Dose: 0.5 mg Haloperidol (Haloperidol 5 Mg Tablet) 5 mg PO BID [facility] Last Admin: 11/18/23 08:43 Dose: 5 mg Lisinopril (Lisinopril 10 Mg Tablet) 10 mg PO DAILY [facility]; Protocol Last Admin: 11/18/23 08:43 Dose: 10 mg Magnesium Hydroxide (Milk Of Magnesia 30 Ml Oral.Susp) 30 ml PO DAILY PRN PRN Reason: Constipation Methadone HCl (Methadone Hcl 20 Mg/2 Ml Oral.Conc) 70 mg PO DAILY [facility] Last Admin: 11/18/23 08:44 Dose: 70 mg Mirtazapine (Mirtazapine 30 Mg Tablet) 30 mg PO BEDTIME [facility] Last Admin: 11/17/23 20:57 Dose: 30 mg Mirtazapine (Mirtazapine 15 Mg Tablet) 15 mg PO BEDTIME PRN PRN Reason: insomnia Nicotine (Nicotine 21 Mg Patch.Td24) 21 mg TRANSDERMA DAILY [facility] Last Admin: 11/18/23 08:43 Dose: 21 mg Nicotine Polacrilex (Nicotine Polacrilex 2 Mg Gum) 4 mg BUCCAL Q2H PRN PRN Reason: Nicotine Cravings Polyethylene Glycol (Polyethylene Glycol 3350 17 Gm Powd.Pack) 17 gm PO DAILY [facility] Last Admin: 11/18/23 08:43 Dose: 17 gm Tamsulosin HCl (Tamsulosin Hcl 0.4 Mg Capsule) 0.4 mg PO DAILY [facility] Last Admin: 11/18/23 08:43 Dose: 0.4 mg Allergies Allergies Allergy/AdvReac Type Severity Reaction Status Date / Time No Known Allergies Allergy Verified 11/10/23 11:52 [No Known Allergies*] Assessment & Plan Assessment & Plan (1) Unspecified psychosis: Status: Acute Code(s): F29 - Unspecified psychosis not due to a substance or known physiological condition (2) Opioid use disorder: Status: Acute Code(s): F11.90 - Opioid use, unspecified, uncomplicated (3) Benzodiazepine abuse: Status: Acute Code(s): F13.10 - Sedative, hypnotic or anxiolytic abuse, uncomplicated Plan 11/13: continue current medications for now. collect collateral from outpt provider. urine benzo NEG. no methadone test done - collect urine for methadone. give methadone 30 mg today, until outpt dosing can be verified. 11/14: outpt methadone dosing verified as 75 mg on 11/11. given 40 mg today. concern for oversedation due to benzo dosing as well. DC ativan and begin klonopin taper. DC geodon and start haldol 5 BID of AH. add hydroxyzine 25 BID for EPS prophylaxis. T/C SSRI for depression/anxiety (appears to have PTSD as well). 11/15: titrating methadone. 50 mg tomorrow, with likely another 10 mg later in the day. decrease klonopin by 0.25 mg each dose tomorrow. discuss starting SSRI tomorrow. experiencing some restlessness at night, unclear if opioid withdrawal or akathisia. 11/16: 60 mg methadone today, will increase to 70 mg as of tomorrow. not sedated during day. decrease klonopin from 1.25 mg TID to 1 mg TID for the next two days, then down to 0.75 mg TID. pt c/o restless legs Sx with trazodone, agrees to trial of remeron. 11/17 pt sedated. will wait but may need to decrease benzo scheduled dose. otherwise he feels optimistic about his tx. 11/18 decrease clonazepam dose to 0.5mg po TID Reason for continued inpatient stay Substantial Risk for: inability to function Time Spent With Patient Time: Total time managing care of this patient today ____ minutes.
[2023-11-18 19:50] VITALS: BP 125/61; PULSE 76; RESP 16; TEMP 36.8; O2SAT 95
[2023-11-18] MEDS: Mirtazapine 30 MG TABLET PO (21:06)
[2023-11-19 07:25] VITALS: BP 127/92; PULSE 103; RESP 16; TEMP 36.5; O2SAT 97
[2023-11-19] MEDS: Tamsulosin HCL 0.4 MG CAPSULE PO (08:26)
[2023-11-19] MEDS: HaloperidoL 5 MG TABLET PO ×2 (08:26→20:40)
[2023-11-19] MEDS: clonazePAM 0.5 MG TABLET PO ×3 (08:27→20:40)
[2023-11-19] MEDS: lisinopriL 10 MG TABLET PO (08:27)
[2023-11-19] MEDS: methADONE HCl 20 MG/2 ML ORAL.CONC 70 MG PO (08:29)
[2023-11-19] MEDS: polyethylene glycoL 3350 17 GM POWD.PACK PO (08:35)
--- NOTE | 2023-11-19 20:33 | HO.PSYCHPN ---
Subjective Subjective Date of Service: 11/19/23 Reason For Visit: SI Subjective Notes: Conditional Voluntary Interim History: Pt again today continues to report (and has been observed by RN) sedation during the day- despite benzo reduction. He agreed to lower dose of clonazepam. He denies SI/HI. He is motivated to continue tx for both substance use and mental health he denies VH/AH. monitor o2sat. Review of Systems Review of Systems As per HPI. Yes all other systems are reviewed and are negative Constitutional: Reports as per HPI Mental Status Exam Mental Status Exam Narrative: adequately dressed in street clothes. disheveled. no PMA/PMR. cooperative. speech soft, nml amount and rate, nml loudness, incr latency. thoughts linear and logical. affect constricted, hypo-intense, non-labile. mood improved. no SI/HI/VH expressed. +AH, attenuated. Diagnostics Vital Signs (24Hr): Vital Signs - 24 hr 11/19/23 07:25 Temperature 97.7 F Pulse Rate 103 H Respiratory Rate 16 Blood Pressure 127/92 H Pulse Oximetry 97 Oxygen Delivery Method Room Air BMI result Body Mass Index 38.1 Labs 11/10/23 12:23 11/10/23 12:23 Medications Medications Current Medications Acetaminophen (Acetaminophen 325 Mg Tablet) 650 mg PO Q6H PRN PRN Reason: Headache/Pain Mild Scale (1-3) Last Admin: 11/13/23 09:45 Dose: 650 mg Al Hydroxide/Mg Hydroxide (Magnesium Hydrox/Alum Hydrox 30 Ml Oral.Susp) 30 ml PO Q6H PRN PRN Reason: Heartburn/Nausea Albuterol Sulfate (Albuterol Sulfate 90 Mcg 8 Gm Inhaler) 2 puff INHALE Q6H PRN PRN Reason: wheezing Clonazepam (Clonazepam 0.5 Mg Tablet) 0.5 mg PO TID [facility] Last Admin: 11/19/23 15:05 Dose: 0.5 mg Haloperidol (Haloperidol 5 Mg Tablet) 5 mg PO BID [facility] Last Admin: 11/19/23 08:26 Dose: 5 mg Lisinopril (Lisinopril 10 Mg Tablet) 10 mg PO DAILY [facility]; Protocol Last Admin: 11/19/23 08:27 Dose: 10 mg Magnesium Hydroxide (Milk Of Magnesia 30 Ml Oral.Susp) 30 ml PO DAILY PRN PRN Reason: Constipation Methadone HCl (Methadone Hcl 20 Mg/2 Ml Oral.Conc) 70 mg PO DAILY [facility] Last Admin: 11/19/23 08:29 Dose: 70 mg Mirtazapine (Mirtazapine 30 Mg Tablet) 30 mg PO BEDTIME [facility] Last Admin: 11/18/23 21:06 Dose: 30 mg Mirtazapine (Mirtazapine 15 Mg Tablet) 15 mg PO BEDTIME PRN PRN Reason: insomnia Nicotine (Nicotine 21 Mg Patch.Td24) 21 mg TRANSDERMA DAILY [facility] Last Admin: 11/19/23 08:33 Dose: Not Given Nicotine Polacrilex (Nicotine Polacrilex 2 Mg Gum) 4 mg BUCCAL Q2H PRN PRN Reason: Nicotine Cravings Polyethylene Glycol (Polyethylene Glycol 3350 17 Gm Powd.Pack) 17 gm PO DAILY [facility] Last Admin: 11/19/23 08:35 Dose: 17 gm Tamsulosin HCl (Tamsulosin Hcl 0.4 Mg Capsule) 0.4 mg PO DAILY [facility] Last Admin: 11/19/23 08:26 Dose: 0.4 mg Allergies Allergies Allergy/AdvReac Type Severity Reaction Status Date / Time No Known Allergies Allergy Verified 11/10/23 11:52 [No Known Allergies*] Assessment & Plan Assessment & Plan (1) Unspecified psychosis: Status: Acute Code(s): F29 - Unspecified psychosis not due to a substance or known physiological condition (2) Opioid use disorder: Status: Acute Code(s): F11.90 - Opioid use, unspecified, uncomplicated (3) Benzodiazepine abuse: Status: Acute Code(s): F13.10 - Sedative, hypnotic or anxiolytic abuse, uncomplicated Plan 11/13: continue current medications for now. collect collateral from outpt provider. urine benzo NEG. no methadone test done - collect urine for methadone. give methadone 30 mg today, until outpt dosing can be verified. 11/14: outpt methadone dosing verified as 75 mg on 11/11. given 40 mg today. concern for oversedation due to benzo dosing as well. DC ativan and begin klonopin taper. DC geodon and start haldol 5 BID of AH. add hydroxyzine 25 BID for EPS prophylaxis. T/C SSRI for depression/anxiety (appears to have PTSD as well). 11/15: titrating methadone. 50 mg tomorrow, with likely another 10 mg later in the day. decrease klonopin by 0.25 mg each dose tomorrow. discuss starting SSRI tomorrow. experiencing some restlessness at night, unclear if opioid withdrawal or akathisia. 11/16: 60 mg methadone today, will increase to 70 mg as of tomorrow. not sedated during day. decrease klonopin from 1.25 mg TID to 1 mg TID for the next two days, then down to 0.75 mg TID. pt c/o restless legs Sx with trazodone, agrees to trial of remeron. 11/17 pt sedated. will wait but may need to decrease benzo scheduled dose. otherwise he feels optimistic about his tx. 11/18 decrease clonazepam dose to 0.5mg po TID 11/19 continue tx. d/c remeron due to over sedation. continue to monitor o2sat. he may tolerate BID clonazepam dosing instead of TID. Reason for continued inpatient stay Substantial Risk for: inability to function Time Spent With Patient Time: Total time managing care of this patient today ____ minutes.
[2023-11-19] MEDS: Mirtazapine 15 MG TABLET PO (20:40)
[2023-11-19 20:42] VITALS: BP 137/75; PULSE 94; RESP 14; TEMP 36.7; O2SAT 96
[2023-11-20 07:28] VITALS: BP 107/72; PULSE 89; RESP 16; TEMP 36.5; O2SAT 95
[2023-11-20] MEDS: clonazePAM 0.5 MG TABLET PO (08:13)
[2023-11-20] MEDS: lisinopriL 10 MG TABLET PO (08:13)
[2023-11-20] MEDS: Tamsulosin HCL 0.4 MG CAPSULE PO (08:13)
[2023-11-20] MEDS: HaloperidoL 5 MG TABLET PO ×2 (08:13→20:17)
[2023-11-20] MEDS: methADONE HCl 20 MG/2 ML ORAL.CONC 70 MG PO (08:15)
[2023-11-20] MEDS: polyethylene glycoL 3350 17 GM POWD.PACK PO (09:56)
--- NOTE | 2023-11-20 14:32 | P.PNPSI_ITS ---
Subjective Subjective Date of Service: 11/20/23 Reason For Visit: SI Interim History: feeling well. agreeable to continue klonopin taper, change remeron to 15 mg QHS from 30 mg. planning for discharge. per staff, less anx/dep. flat, guarded. attending groups. taking meds. c/o daytime fatigue. maybe 2/2 remeron. took only 15 mg last night and feeling much better this morning. slept 6.5 hours. dep gone. denies paranoia, AVH. Mental Status Exam Mental Status Exam Narrative: adequately dressed in street clothes. disheveled. no PMA/PMR. cooperative. speech soft, nml amount and rate, nml loudness, latency. thoughts linear and logical. affect constricted, hypo-intense, non-labile. mood good. i feel good. no SI/HI/AVH expressed. Diagnostics Vital Signs (24Hr): Vital Signs - 24 hr 11/19/23 20:42 11/20/23 07:28 Temperature 98.1 F 97.7 F Pulse Rate 94 89 Respiratory Rate 14 16 Blood Pressure 137/75 107/72 Pulse Oximetry 96 95 Oxygen Delivery Method Room Air Room Air BMI result Body Mass Index 38.1 Labs 11/10/23 12:23 11/10/23 12:23 Medications Medications Current Medications Acetaminophen (Acetaminophen 325 Mg Tablet) 650 mg PO Q6H PRN PRN Reason: Headache/Pain Mild Scale (1-3) Last Admin: 11/13/23 09:45 Dose: 650 mg Al Hydroxide/Mg Hydroxide (Magnesium Hydrox/Alum Hydrox 30 Ml Oral.Susp) 30 ml PO Q6H PRN PRN Reason: Heartburn/Nausea Albuterol Sulfate (Albuterol Sulfate 90 Mcg 8 Gm Inhaler) 2 puff INHALE Q6H PRN PRN Reason: wheezing Clonazepam (Clonazepam 0.5 Mg Tablet) 0.25 mg PO TID NICOLE Haloperidol (Haloperidol 5 Mg Tablet) 5 mg PO BID NICOLE Last Admin: 11/20/23 08:13 Dose: 5 mg Lisinopril (Lisinopril 10 Mg Tablet) 10 mg PO DAILY NICOLE; Protocol Last Admin: 11/20/23 08:13 Dose: 10 mg Magnesium Hydroxide (Milk Of Magnesia 30 Ml Oral.Susp) 30 ml PO DAILY PRN PRN Reason: Constipation Methadone HCl (Methadone Hcl 20 Mg/2 Ml Oral.Conc) 70 mg PO DAILY [facility] Last Admin: 11/20/23 08:15 Dose: 70 mg Mirtazapine (Mirtazapine 15 Mg Tablet) 15 mg PO BEDTIME [facility] Mirtazapine (Mirtazapine 7.5 Mg Tablet) 7.5 mg PO BEDTIME PRN PRN Reason: insomnia Nicotine (Nicotine 21 Mg Patch.Td24) 21 mg TRANSDERMA DAILY [facility] Last Admin: 11/20/23 08:52 Dose: Not Given Nicotine Polacrilex (Nicotine Polacrilex 2 Mg Gum) 4 mg BUCCAL Q2H PRN PRN Reason: Nicotine Cravings Polyethylene Glycol (Polyethylene Glycol 3350 17 Gm Powd.Pack) 17 gm PO DAILY [facility] Last Admin: 11/20/23 09:56 Dose: 17 gm Tamsulosin HCl (Tamsulosin Hcl 0.4 Mg Capsule) 0.4 mg PO DAILY [facility] Last Admin: 11/20/23 08:13 Dose: 0.4 mg Allergies Allergies Allergy/AdvReac Type Severity Reaction Status Date / Time No Known Allergies Allergy Verified 11/10/23 11:52 [No Known Allergies*] Assessment & Plan Assessment & Plan (1) Unspecified psychosis: Status: Acute Code(s): F29 - Unspecified psychosis not due to a substance or known physiological condition (2) Opioid use disorder: Status: Acute Code(s): F11.90 - Opioid use, unspecified, uncomplicated (3) Benzodiazepine abuse: Status: Acute Code(s): F13.10 - Sedative, hypnotic or anxiolytic abuse, uncomplicated Plan 11/13: continue current medications for now. collect collateral from outpt provider. urine benzo NEG. no methadone test done - collect urine for methadone. give methadone 30 mg today, until outpt dosing can be verified. 11/14: outpt methadone dosing verified as 75 mg on 11/11. given 40 mg today. concern for oversedation due to benzo dosing as well. DC ativan and begin klonopin taper. DC geodon and start haldol 5 BID of AH. add hydroxyzine 25 BID for EPS prophylaxis. T/C SSRI for depression/anxiety (appears to have PTSD as well). 11/15: titrating methadone. 50 mg tomorrow, with likely another 10 mg later in the day. decrease klonopin by 0.25 mg each dose tomorrow. discuss starting SSRI tomorrow. experiencing some restlessness at night, unclear if opioid withdrawal or akathisia. 11/16: 60 mg methadone today, will increase to 70 mg as of tomorrow. not sedated during day. decrease klonopin from 1.25 mg TID to 1 mg TID for the next two days, then down to 0.75 mg TID. pt c/o restless legs Sx with trazodone, agrees to trial of remeron. 11/17 pt sedated. will wait but may need to decrease benzo scheduled dose. otherwise he feels optimistic about his tx. 11/18 decrease clonazepam dose to 0.5mg po TID 11/19 continue tx. d/c remeron due to over sedation. continue to monitor o2sat. he may tolerate BID clonazepam dosing instead of TID. 11/20: decr klonopin from 0.5 TID to 0.25 TID. schedule remeron 15 rather than 30 QHS. feeling much improved. continue current mgmt otherwise. planning for discharge. Reason for continued inpatient stay Substantial Risk for: inability to function and rapid decompensation Time Spent With Patient Time: Total time managing care of this patient today __25__ minutes.
[2023-11-20] MEDS: clonazePAM 0.5 MG TABLET 0.25 MG PO ×2 (14:46→20:17)
[2023-11-20 18:00] VITALS: BP 123/58; PULSE 86; RESP 14; TEMP 36.2; O2SAT 98
[2023-11-20] MEDS: Mirtazapine 15 MG TABLET PO (20:16)
[2023-11-21 07:59] VITALS: BP 126/75; PULSE 92; RESP 18; TEMP 36.2; O2SAT 97
[2023-11-21] MEDS: methADONE HCl 20 MG/2 ML ORAL.CONC 70 MG PO (08:28)
[2023-11-21] MEDS: Tamsulosin HCL 0.4 MG CAPSULE PO (08:30)
[2023-11-21] MEDS: clonazePAM 0.5 MG TABLET 0.25 MG PO ×2 (08:30→20:32)
[2023-11-21] MEDS: HaloperidoL 5 MG TABLET PO ×2 (08:30→20:32)
[2023-11-21] MEDS: lisinopriL 10 MG TABLET PO (08:30)
[2023-11-21] MEDS: Nicotine 21 MG PATCH.TD24 TRANSDERMA (08:31)
[2023-11-21] MEDS: polyethylene glycoL 3350 17 GM POWD.PACK PO (08:31)
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
[2023-11-21 19:50] VITALS: BP 101/62; PULSE 71; RESP 16; TEMP 36.5; O2SAT 95
[2023-11-21] MEDS: Mirtazapine 15 MG TABLET PO (20:31)
[2023-11-22] MEDS: lisinopriL 10 MG TABLET PO (08:21)
[2023-11-22] MEDS: Tamsulosin HCL 0.4 MG CAPSULE PO (08:21)
[2023-11-22] MEDS: methADONE HCl 20 MG/2 ML ORAL.CONC 70 MG PO (08:21)
[2023-11-22] MEDS: HaloperidoL 5 MG TABLET PO (08:21)
[2023-11-22] MEDS: Nicotine 21 MG PATCH.TD24 TRANSDERMA (08:21)
[2023-11-22] MEDS: clonazePAM 0.5 MG TABLET 0.25 MG PO (08:31)
== END 2023-11-22 10:00 | disposition home or self-care (01) | DRG 753 ==
LOC: HO.ED 11-11 14:18 → HO.PADLT16 11-12 13:41
PROVIDERS: Emergency Medicine; Nurse Practitioner Family; Registered Nurse Emergency; Admitting Provider Psychiatry & Neurology Psychiatry; Emergency Provider Emergency Medicine Emergency Medical Services; Visit Provider Psychiatry & Neurology Psychiatry
DX: F39 Unspecified mood [affective] disorder (principal); R45.851 Suicidal ideations; Z91.148 Patient's other noncompliance with medication regimen for other reason; F11.20 Opioid dependence, uncomplicated; F17.210 Nicotine dependence, cigarettes, uncomplicated; Z71.6 Tobacco abuse counseling; Z20.822 Contact with and (suspected) exposure to COVID-19; F43.10 Post-traumatic stress disorder, unspecified; F13.10 Sedative, hypnotic or anxiolytic abuse, uncomplicated; Z79.899 Other long term (current) drug therapy
CPT/HCPCS: 36415; 80053; 80061; 80307; 80358; 81001; 82607; 82746; 83036; 84439; 84443; 85025; 87635; 93005; 99285; S9485

== ENCOUNTER → 2023-11-11 16:52 | Outpatient (BNV) | payer OTHER, SELFPAY | PROVIDERS: Admitting Provider Psychiatry & Neurology Psychiatry; Emergency Provider Emergency Medicine Emergency Medical Services; Visit Provider Internal Medicine Cardiovascular Disease | DX: R45.851 Suicidal ideations (principal) | CPT/HCPCS: 93010 ==

== ENCOUNTER → 2023-11-12 13:38 | Outpatient (BNV) | payer OTHER, SELFPAY | PROVIDERS: Admitting Provider Psychiatry & Neurology Psychiatry; Emergency Provider Emergency Medicine Emergency Medical Services; Visit Provider Psychiatry & Neurology Psychiatry | DX: F29 Unspecified psychosis not due to a substance or known physiological condition (principal); F11.90 Opioid use, unspecified, uncomplicated; F13.10 Sedative, hypnotic or anxiolytic abuse, uncomplicated | CPT/HCPCS: 99231; 99232; 99233 ==

== ENCOUNTER 2025-03-24 21:35 | Emergency (ER) | payer OTHER, MEDICAID, SELFPAY ==
[2025-03-24 21:43] VITALS: BP 149/81; PULSE 96; RESP 16; TEMP 36.1; O2SAT 95; BMI 43.9
--- NOTE | 2025-03-24 21:49 | ECG_ITS ---
Test Reason : QTC CHECK Blood Pressure : */* mmHG Vent. Rate : 82 BPM Atrial Rate : 82 BPM P-R Int : 156 ms QRS Dur : 82 ms QT Int : 352 ms P-R-T Axes : 40 13 40 degrees QTcB Int : 411 ms Normal sinus rhythm Normal ECG When compared with ECG of 11-Nov-2023 16:52, Nonspecific T wave abnormality, improved in Inferior leads Referred By: Generic ED Physician Electronically Signed By: VIBHA MILLER
[2025-03-24 22:12] LABS: MANUAL DIFF FLAG NO
[2025-03-24 22:13] LABS: Basophils Absolute Auto 0.1 X10*3/uL (0.0-0.2); Basophils Percent Auto 0.6 % (0-2); Eosinophils Absolute Auto 0.2 X10*3/uL (0.0-0.4); Eosinophils Percent Auto 2.7 % (0-4); Hematocrit 41.1 % (42.0-52.0); Hemoglobin 14.4 g/dl (14.0-18.0); Imm Gran Abs Auto 0.02 X10*3/uL (0.00-0.03); Imm Gran Pct Auto 0.2 % (0.0-0.4); Lymphocytes Absolute Auto 2.9 X10*3/uL (1.2-4.9); Lymphocytes Percent Auto 33.6 % (20-40); Mean Corpuscular Hemoglobin 31.4 pg (27.0-33.0); Mean Corpuscular Volume 89.5 fL (80.0-98.0); Mean Platelet Volume 10.2 fL (9.4-12.4); Monocytes Absolute Auto 0.5 X10*3/uL (0.1-1.2); Monocytes Percent Auto 5.5 % (2-11); Neutrophils Absolute Auto 4.9 x10*3/uL (2.0-8.3); Neutrophils Percent Auto 57.4 % (45-73); Platelet Count 291 X10*3/uL (160-400); Red Blood Count 4.59 X10*6/uL (4.60-5.80); Red Cell Distribution Width 12.4 % (11.0-16.0); White Blood Count 8.5 X10*3/uL (4.8-10.8)
[2025-03-24 22:28] LABS: Anion Gap 12 (12-20); Blood Urea Nitrogen 16 mg/dL (9-16); Calcium 9.4 mg/dL (8.4-10.2); Carbon Dioxide 26 mmol/L (22-29); Chloride 108 mmol/L (96-108); Estimated Glomerular Filt Rate > 60; Ethanol < 10 mg/dL; Glucose Random 92 mg/dL (60-115); Potassium 3.7 mmol/L (3.3-5.1); Sodium 142 mmol/L (135-145)
[2025-03-24 22:29] LABS: Salicylate < 5.0 mg/dL (15-30)
--- NOTE | 2025-03-24 22:36 | PC.NURSE ---
pt calm and cooperative, changed over to hospital attire and belongings secured. pts fiance is bedside. pt currently denying any SI/HI at this time, states he's seeking help with his medications. Pt also states he has out of body experiences and auditory hallucinations at times but not right now.
[2025-03-25 00:27] VITALS: BP 129/84; PULSE 91; RESP 14; TEMP 36.5; O2SAT 96
[2025-03-25 00:55] LABS: Appearance Urine Clear; Color Urine Dark Yellow; Glucose Urine UA Negative (Negative); Leukocyte Esterase Urine Negative (Negative); Nitrite Urine Negative (Negative); PH 5.5 (5.0-9.0); Specific Gravity - Urine >= 1.030 (1.005-1.025); Urine Blood Negative (Negative); Urine Ketones Trace mg/dL (Negative); Urine Protein Trace mg/dL (Neg-Trace)
[2025-03-25 01:06] LABS: Amphetamine Screen Urine Not Detected (Not Detect); Barbiturates, Urine Not Detected (Not Detect); Benzodiazepines Screen Urine POSITIVE (Not Detect); Buprenorphine Scr Not Detected (Not Detect); Cannabinoid Screen Urine POSITIVE (Not Detect); Cocaine Screen Urine Not Detected (Not Detect); Fentanyl, urine Not Detected (Not Detect); Methadone Screen, Urine Not Detected (Not Detect); Opiate Screen Urine Not Detected (Not Detect); Oxycodone Screen Urine Not Detected (Not Detect); Phencyclidine Screen Urine Not Detected (Not Detect)
--- NOTE | 2025-03-25 01:47 | ED.PSYCH ---
HPI - Psych General Chief Complaint: Psychiatric Symptoms Stated Complaint: [facility] sent for crisis was evaluated there today Time Seen by Provider: 03/25/25 01:47 History of Present Illness ED Provider: donnie HPI Narrative: 34-year-old male with chronic mental health issues these recently left a psych facility in [place] after week and a half admission. He was sent in by [facility] not on section for being an IV unable to obtain outpatient prescriber benzodiazepines and feeling anxiety. The patient would like voluntary psychiatric admission here. Denies SI or HI. Girlfriend with him does not report any high-risk behavior or expression of SI or HI no acute medical complaints Related Data Home Medications ?Medication ?Instructions ?Recorded ?Confirmed tamsulosin 0.4 mg capsule 0.4 mg PO DAILY 11/10/23 11/11/23 albuterol sulfate 90 mcg/actuation 2 puff inhalation Q6H PRN wheezing 11/11/23 11/11/23 aerosol inhaler (Ventolin HFA) lisinopril 10 mg tablet 10 mg PO DAILY 11/11/23 11/11/23 nicotine 21 mg/24 hr daily 1 patch topical DAILY 11/11/23 11/11/23 transdermal patch Previous Rx's ?Medication ?Instructions ?Recorded haloperidol 5 mg tablet 5 mg PO BID 30 days #60 tabs 11/21/23 methadone 10 mg/mL oral 70 mg (7 mL) PO DAILY #0 mL 11/21/23 concentrate (Methadose) mirtazapine 15 mg tablet 15 mg PO BEDTIME 30 days #30 tabs 11/21/23 polyethylene glycol 3350 17 gram 17 g PO DAILY #0 ea 11/21/23 oral powder packet Allergies Allergy/AdvReac Type Severity Reaction Status Date / Time No Known Allergies (No Known Allergy Verified 03/24/25 21:45 Allergies*) [facility] Past Medical History Medical History (Updated 03/26/25 @ 00:01 by Shawna Matias) Bipolar disorder Social History Social History Household Members: Spouse and Family Housing: House Do you presently have visiting nurse or other home services: No Alcohol intake: never Patient Tobacco Use Status: Current everyday Tobacco user Tobacco use type: Cigarette Cigarette Packs Per Day: 2 Cigarettes Per Day: 40.0 Smoked in Last 30 Days: Yes e-Cigarette/Vaping Use: Never Used Second Hand Smoke Exposure: No Use of substances other than those prescribed or required for medical reasons: Yes Substance Use Type: Marijuana and Prescription Drugs Advance Directives: No Advance Directives Information Provided: No Do you have a plan to hurt others: No Plan service: No Sexual orientation: Straight/Heterosexual Physical Exam Vital Signs: Vital Signs: Last Vital Signs Temp 97.8 F 03/25/25 03:52 Pulse 86 03/25/25 03:52 Resp 16 03/25/25 03:52 BP 143/89 H 03/25/25 03:52 Pulse Ox 96 03/25/25 03:52 O2 Del Method Room Air 03/25/25 03:52 BMI result Body Mass Index 43.9 Const: Other: EXAM: Gen: Alert, awake, well appearing, well hydrated. Head: Atraumatic Eyes: Anicteric, Normal conjunctiva. ENT: Moist mucosa, no pallor. ? Neck: Supple. Skin: ?No observable rash or bruising on exposed or examined skin Respiratory: Breathing comfortably, No distress.Clear to auscultation bilaterally, symmetric chest expansion, No wheeze, rales, ronchi. Cardiovascular: Regular rate and rhythm. No murmurs or rub. Well perfused periphery, warm extremities. No edema. ? Abdominal: No FOCAL TENDERNESS. Soft, no objective distension. No palpable masses or obvious organomegaly. ?No guarding, no rebound tenderness or other peritoneal findings. : No flank tenderness. Neuro: Alert. Gross movement of all extremities intact. ? Psych: Calm. Cooperative. Reporting anxiety. He is well-kempt. No psychosis or toxidrome. MSK: No grossly visible deformity. Vital signs: See flowsheet Medications Administered Discontinued Medications Generic Name Dose Route Start Last Admin Trade Name Freq PRN Reason Stop Dose Admin Lorazepam 0.5 mg 03/25/25 02:50 03/25/25 02:59 Lorazepam 0.5 Mg Tablet PO 03/25/25 02:51 0.5 mg ONCE ONE Administration Medical Decision Making Medical Decision Making MDM Narrative: 34-year-old male requesting inpatient psychiatric stabilization. No SI or HI but severe anxiety. Unable to obtain outpatient benzodiazepine prescription. Later in the visit he expressed to nurse and I went to re-evaluate him he asked to leave. The female partner at the bedside is visibly upset with his decision however does not express to me any explicit risks or expression of SI or HI or other self harm or risks of the patient. Patient has allowed to make this decision I see no indication for sectioning him. No acute medical emergency identified discharged home Lab Data 03/24/25 22:06 03/24/25 22:06 Labs: Lab Results 03/24/25 03/25/25 Range/Units 22:06 00:42 WBC 8.5 (4.8-10.8) X10*3/uL RBC 4.59 L (4.60-5.80) X10*6/uL Hgb 14.4 (14.0-18.0) g/dl Hct 41.1 L (42.0-52.0) % MCV 89.5 (80.0-98.0) fL MCH 31.4 (27.0-33.0) pg MCHC 35.0 (31.0-36.0) g/dl RDW 12.4 (11.0-16.0) % Plt Count 291 (160-400) X10*3/uL MPV 10.2 (9.4-12.4) fL Immature Gran % (Auto) 0.2 (0.0-0.4) % Neut % (Auto) 57.4 (45-73) % Lymph % (Auto) 33.6 (20-40) % [place] % (Auto) 5.5 (2-11) % Eos % (Auto) 2.7 (0-4) % Baso % (Auto) 0.6 (0-2) % Lymph # (Auto) 2.9 (1.2-4.9) X10*3/uL [place] # (Auto) 0.5 (0.1-1.2) X10*3/uL Eos # (Auto) 0.2 (0.0-0.4) X10*3/uL Baso # (Auto) 0.1 (0.0-0.2) X10*3/uL Abs Immat Gran (auto) 0.02 (0.00-0.03) X10*3/uL Absolute Neuts (auto) 4.9 (2.0-8.3) x10*3/uL Absolute Nucleated RBC 0.000 (0.0-0.012) X10*3/uL Nucleated RBC % (auto) 0.0 (0.0-0.2) /100WBC Sodium 142 (135-145) mmol/L Potassium 3.7 (3.3-5.1) mmol/L Chloride 108 (96-108) mmol/L Carbon Dioxide 26 (22-29) mmol/L Anion Gap 12 (12-20) BUN 16 (9-16) mg/dL Creatinine 0.96 (0.5-1.4) mg/dL Estim Creat Clear Calc 163.0 Estimated GFR > 60 Random Glucose 92 (60-115) mg/dL Calcium 9.4 D (8.4-10.2) mg/dL Urine Color Dark Yellow Urine Appearance Clear Urine pH 5.5 (5.0-9.0) Ur Specific [place] >= 1.030 H (1.005-1.025) Urine Protein Trace (Neg-Trace) mg/dL Urine Glucose (UA) Negative (Negative) mg/dL Urine Ketones Trace (Negative) mg/dL Urine Blood Negative (Negative) Urine Nitrite Negative (Negative) Ur Leukocyte Esterase Negative (Negative) Salicylates < 5.0 L (15-30) mg/dL Urine Opiates Screen Not Detected (Not Detect) Ur Buprenorphine Scrn Not Detected (Not Detect) ng/mL Ur Oxycodone Screen Not Detected (Not Detect) ng/mL Urine Methadone Screen Not Detected (Not Detect) ng/mL Urine Fentanyl Screen Not Detected (Not Detect) Ur Barbiturates Screen Not Detected (Not Detect) Ur Phencyclidine Scrn Not Detected (Not Detect) Ur Amphetamines Screen Not Detected (Not Detect) U Benzodiazepines Scrn POSITIVE H (Not Detect) Urine Cocaine Screen Not Detected (Not Detect) U Marijuana (THC) Screen POSITIVE H (Not Detect) Ethyl Alcohol < 10 mg/dL Discharge Plan Discharge Clinical Impression: Acute anxiety Patient Disposition: Home, Self-Care Instructions: Anxiety (ED) Additional Instructions: We evaluated you and offered voluntary admission after behavior health evaluation. You decided to leave the emergency department. Return at any time if you feel you need help. Prescriptions: No Action tamsulosin 0.4 mg capsule 0.4 mg PO DAILY lisinopril 10 mg tablet 10 mg PO DAILY nicotine 21 mg/24 hr patch 24 hour 1 patch topical DAILY albuterol sulfate [Ventolin HFA] 90 mcg/actuation HFA aerosol inhaler 2 puff INHALATION Q6H PRN (Reason: wheezing) haloperidol 5 mg Tablet 5 mg PO BID 30 Days Qty: 60 0RF polyethylene glycol 3350 17 gram Powder In Packet 17 g PO DAILY Qty: 0 0RF mirtazapine 15 mg Tablet 15 mg PO BEDTIME 30 Days Qty: 30 0RF methadone [Methadose] 10 mg/mL Concentrate 70 mg PO DAILY Qty: 0 0RF Rx Instructions: Partial Fill upon patient request. Referrals: [facility] [Provider Group] Interventions: [place]-Suicide Risk Severity Scale Last Done: 03/24/25 22:29 ED Discharge Assessment Last Done: 03/25/25 03:52 Discharge Date/Time: 03/25/25 03:55 Print Language: Luxembourgish
[2025-03-25 02:27] VITALS: BP 136/87; PULSE 98; RESP 18; TEMP 36.6; O2SAT 95
[2025-03-25] MEDS: LORazepam 0.5 MG TABLET PO (02:59)
[2025-03-25 03:52] VITALS: BP 143/89; PULSE 86; RESP 16; TEMP 36.6; O2SAT 96
== END 2025-03-25 03:55 | disposition home or self-care (01) ==
PROVIDERS: Emergency Provider Emergency Medicine
DX: F41.9 Anxiety disorder, unspecified (principal); E11.9 Type 2 diabetes mellitus without complications; I10 Essential (primary) hypertension; E78.00 Pure hypercholesterolemia, unspecified; J45.909 Unspecified asthma, uncomplicated; F11.20 Opioid dependence, uncomplicated; F17.210 Nicotine dependence, cigarettes, uncomplicated; Z79.899 Other long term (current) drug therapy
CPT/HCPCS: 36415; 80048; 80179; 80307; 81003; 85025; 93005; 99285

== ENCOUNTER → 2025-03-24 21:49 | Outpatient (BNV) | payer OTHER, MEDICAID, SELFPAY | PROVIDERS: Emergency Provider Emergency Medicine; Visit Provider Internal Medicine | DX: Z13.6 Encounter for screening for cardiovascular disorders (principal) | CPT/HCPCS: 93010 ==

== ENCOUNTER 2025-04-22 09:30 | Outpatient (RCR) | payer OTHER, MEDICAID, SELFPAY ==
[2025-04-17 09:42] VITALS: BMI 43.7
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
[2025-04-17 15:10] VITALS: BP 108/80; PULSE 100; TEMP 36.9
--- NOTE | 2025-04-20 23:31 | PM.EVENT ---
Event Note Date of Service: 04/20/25 Event Note: Patient was scheduled to be seen by psychiatry Tuesday 04/17 and today Friday 04/20, however patient continues to unexpectedly leav program part way through day. Time Spent With Patient Time: Total time managing care of this patient today ____ minutes.
--- NOTE | 2025-04-22 17:20 | HO.PHP ---
[facility] staff member and Carl engaged in conversation with his DCF worker, Maida. Maida noted that Carl informed her that he is not able to receive support while in this program because their is no med management here, that he can't discuss his trauma, and that there is no individual therapy. Maida expressed that she is wondering what the goals are for program and what his treatment plan looks like. PHP staff member reviewed the treatment plan with his DCF worker and Carl. After reviewing the goals and objectives, Maida said so the things that he noted that aren't being provided are. PHP staff member stated that they are but noted the med provider has been unable to meet with him due to him leaving early. Maida asked what time he was leaving at. Carl said 1 PM but PHP staff member clarified that he left after the third group was completed which ends at 12:30 PM. Maida reminded Carl that it is our recommendation that you complete the PHP program and attend full day. Maida explored why he is doing IOP. PHP staff member noted that Carl has been unable to complete a full day within the program since starting that is why we are recommending that he attends the IOP program so that he can still receive the support needed. Maida asked Carl why he can't do a full day. Carl said because he has things to do at his house. Maida also disclosed that Carl did the same thing with inpatient, where he signed himself out. Maida informed Carl that she is going to have a long conversation with him regarding expectations for his treatment. Carl appeared receptive. Carl also informed her that he has been doing better since he has been on his medications again. Carl voiced that he no longer has SI, plan or intent.
== END 2025-04-22 23:59 | disposition home or self-care (01) ==
LOC: HO.PHPA 09:30
PROVIDERS: Visit Provider Psychiatry & Neurology Psychiatry
DX: F31.13 Bipolar disorder, current episode manic without psychotic features, severe (principal); F41.1 Generalized anxiety disorder
CPT/HCPCS: 90791; 90853

== ENCOUNTER 2025-05-06 03:06 | Inpatient (IN) | payer MEDICARE, MEDICAID, SELFPAY ==
--- NOTE | 2025-05-06 | ECG_ITS ---
Test Reason : SI/HI/OVERDOSE Blood Pressure : */* mmHG Vent. Rate : 118 BPM Atrial Rate : 118 BPM P-R Int : 142 ms QRS Dur : 80 ms QT Int : 312 ms P-R-T Axes : 55 16 61 degrees QTcB Int : 437 ms Sinus tachycardia Otherwise normal ECG When compared with ECG of 24-Mar-2025 21:56, No significant change was found Referred By: Generic ED Physician Electronically Signed By: VIBHA MILLER
[2025-05-06 03:14] VITALS: PULSE 66; O2SAT 97
[2025-05-06 03:20] VITALS: BP 129/91; PULSE 124; RESP 18; TEMP 37; O2SAT 94; BMI 42.9
--- NOTE | 2025-05-06 03:38 | PC.NURSE ---
Spoke with Adela at [facility] regarding Dextroamphetamine-Amphetamine Salts 30mg overdose (pt reported at least 5-6 tabs taken prior to arrival). Advised to give Charcoal now. EKG, standard labs to be drawn. Will follow up with poison control.
--- NOTE | 2025-05-06 03:46 | MHC.EDTECH ---
pt refused to have ekg performed
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
[2025-05-06 04:05] LABS: Glucose, Whole Blood 103 mg/dL (60-115)
[2025-05-06 04:14] LABS: Mean Corpuscular HGB Conc 36.0 g/dl (31.0-36.0); Mean Corpuscular Hemoglobin 32.1 pg (27.0-33.0); NRBC Abs Auto 0.000 X10*3/uL (0.0-0.012); NRBC Pct Auto 0.0 /100WBC (0.0-0.2); PLT CLUMP 1; SCAN SMEAR FLAG 1
[2025-05-06 04:16] LABS: Hematocrit 44.7 % (42.0-52.0); Hemoglobin 16.1 g/dl (14.0-18.0); Imm Gran Abs Auto 0.05 X10*3/uL (0.00-0.03); Imm Gran Pct Auto 0.4 % (0.0-0.4); Lymphocytes Absolute Auto 1.4 X10*3/uL (1.2-4.9); Mean Corpuscular Volume 89.0 fL (80.0-98.0); Red Blood Count 5.02 X10*6/uL (4.60-5.80)
[2025-05-06 04:28] LABS: Alanine Aminotransferase 51 U/L (0-40); Albumin Level 4.5 g/dL (3.5-5.0); Alkaline Phosphatase 87 U/L (39-117); Anion Gap 16 (12-20); Aspartate Amino Transferase 28 U/L (5-37); Blood Urea Nitrogen 10 mg/dL (9-16); Calcium 9.8 mg/dL (8.4-10.2); Carbon Dioxide 24 mmol/L (22-29); Chloride 104 mmol/L (96-108); Creatinine Clr Calc Pharmacy 142.9; Estimated Glomerular Filt Rate > 60; Potassium 3.9 mmol/L (3.3-5.1); Sodium 140 mmol/L (135-145); Total Protein 8.5 g/dL (6.5-8.0)
[2025-05-06 04:36] LABS: Acetaminophen LAB < 3 mcg/mL (<30); Salicylate < 5.0 mg/dL (15-30)
[2025-05-06 04:55] LABS: MANUAL DIFF FLAG SCAN
[2025-05-06 04:56] LABS: Platelet Count 216 X10*3/uL (160-400); White Blood Count 11.7 X10*3/uL (4.8-10.8)
--- NOTE | 2025-05-06 05:03 | PC.NURSE ---
CARE team speaking with patient at this time. Escorted to more private area of ED for evaluation/discussion. Care ongoing by this RN. 1:1 remains with patient. Given water, denies any other needs at this time.
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
--- NOTE | 2025-05-06 07:54 | PC.NURSE ---
Assumed care of patient at 0645, patient appears to be in no apparent distress this am, moved from ED 16H to 2. Patient calm and cooperative, offering no complaints to this RN. continue plan of care for [facility]
--- NOTE | 2025-05-06 08:10 | PHA.MEDREC ---
Pharmacy Consult ? Medication Reconciliation Pharmacy has completed the medication reconciliation.Checked med rec done by nursing
[2025-05-06 08:45] VITALS: BP 125/68; PULSE 102; RESP 14; TEMP 37.1; O2SAT 97
[2025-05-06 08:51] VITALS: BP 125/68
[2025-05-06 12:49] VITALS: BP 131/82; PULSE 112; RESP 18; TEMP 36.5; O2SAT 94
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
[2025-05-06 15:58] VITALS: BMI 42.1
--- NOTE | 2025-05-06 17:35 | PC.NURSE ---
Pt was on the phone with his mother and became angry, slamming the phone down and walking to his room. Pt didn't respond to TW when approached. Pt informed for the need of a urine speciman and was unable to provide at the time.
--- NOTE | 2025-05-06 19:42 | PC.NURSE ---
Carl's girlfriend Terrie called with concerns about the patient being discharged. Girlfrienleona states that she received a call from the patient stating that he is being discharged. Terrie has stated that she is very concerned about the patient possibly being discharged. I need to know if he is being discharged because he can't be here. If he leaves then I need to activate my safety plan. I can't stay here and I have to leave. we have DCF involvement because of our son. My main concerns here is my son. I'm really worried that he's going to sign himself out or that you guys will discharge him after 3 days. He is a master manipulator and will convince you that he is fine but he's not . Girlfriend reassured that the patient is safe on our unit. That he is not being discharged today and that he does not legally have the right to sign himself out of our locked psychiatric unit. Girlienleona expressed emotional relief after being reassured that Carl is not being discharge michela
[2025-05-07 07:45] VITALS: BP 138/88; PULSE 75; RESP 18; TEMP 36.3; O2SAT 95
[2025-05-07 08:38] LABS: Hemoglobin A1C 135.2533 umol/L; Total Hemoglobin (HGBA1C) 3961.9498 umol/L
[2025-05-07 08:56] LABS: Albumin Level 4.4 g/dL (3.5-5.0); Alkaline Phosphatase 83 U/L (39-117); Anion Gap 14 (12-20); Aspartate Amino Transferase 35 U/L (5-37); Blood Urea Nitrogen 12 mg/dL (9-16); Calcium 9.5 mg/dL (8.4-10.2); Carbon Dioxide 27 mmol/L (22-29); Chloride 103 mmol/L (96-108); Cholesterol 187 mg/dL (<200); Creatinine Clr Calc Pharmacy 160.8; Estimated Glomerular Filt Rate > 60; HDL Cholesterol 27 mg/dL (>40); Potassium 4.3 mmol/L (3.3-5.1); Sodium 140 mmol/L (135-145); Total Protein 8.0 g/dL (6.5-8.0); Triglycerides 150 mg/dL (<150)
[2025-05-07 09:06] LABS: Free T4 (Free Thyroxine) 1.25 ng/dL (0.71-1.85); Thyroid Stimulating Hormone 0.80 uIU/mL (0.32-4.0)
[2025-05-07 09:08] LABS: Alanine Aminotransferase 54 U/L (0-40)
[2025-05-07] MEDS: Nicotine 21 MG PATCH.TD24 TRANSDERMA (14:56)
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
[2025-05-07 20:00] VITALS: BP 128/78; PULSE 90; RESP 16; TEMP 36.8; O2SAT 95
[2025-05-08] MEDS: Nicotine Polacrilex Lozenge 4 MG LOZENGE BUCCAL (06:13)
[2025-05-08 08:14] VITALS: BP 106/67; PULSE 96; RESP 20; TEMP 37.1; O2SAT 95
[2025-05-08] MEDS: Nicotine 21 MG PATCH.TD24 TRANSDERMA (08:16)
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
[2025-05-08 20:00] VITALS: BP 116/83; PULSE 77; RESP 16; TEMP 36.3; O2SAT 94
[2025-05-09 07:30] VITALS: BP 129/78; PULSE 70; RESP 18; TEMP 36.9; O2SAT 96
[2025-05-09] MEDS: Nicotine 21 MG PATCH.TD24 TRANSDERMA (08:57)
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
[2025-05-09] MEDS: Throat Lozenge, Medicated LOZENGE 1 LOZENGE MUCOUS MEM (14:03)
--- NOTE | 2025-05-09 18:57 | PC.NURSE ---
pt signed a 3 day on 05/09/25, up on 05/13/25
[2025-05-09 20:00] VITALS: BP 133/78; PULSE 66; RESP 16; TEMP 36.5; O2SAT 98
[2025-05-10 07:25] VITALS: BP 100/54; PULSE 78; RESP 16; TEMP 36.1; O2SAT 93
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
[2025-05-10] MEDS: Nicotine 21 MG PATCH.TD24 TRANSDERMA (08:32)
[2025-05-10 08:33] VITALS: BP 129/82
[2025-05-10 20:00] VITALS: BP 121/73; PULSE 71; RESP 18; TEMP 36.8; O2SAT 94
[2025-05-11 07:15] VITALS: BP 127/79; PULSE 89; RESP 18; TEMP 36.9; O2SAT 95
[2025-05-11] MEDS: Nicotine 21 MG PATCH.TD24 TRANSDERMA (08:30)
[2025-05-11] MEDS: TIRZEPATIDE 7.5 MG/0.5 ML 7.5 EACH SUBCUT (08:47)
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
[2025-05-11 19:57] VITALS: BP 125/84; PULSE 78; RESP 16; TEMP 37.3; O2SAT 95
[2025-05-12] MEDS: Magnesium Hydrox/Alum Hydrox 30 ML ORAL.SUSP PO (00:12)
[2025-05-12 07:43] VITALS: BP 145/87; PULSE 80; RESP 20; TEMP 36.5; O2SAT 96
[2025-05-12] MEDS: Nicotine 21 MG PATCH.TD24 TRANSDERMA (08:14)
[2025-05-12 20:00] VITALS: BP 133/89; PULSE 82; RESP 16; TEMP 36.7; O2SAT 95
[2025-05-12 20:14] LABS: MANUAL DIFF FLAG NO
[2025-05-12 20:16] LABS: Hematocrit 47.2 % (42.0-52.0); Hemoglobin 16.8 g/dl (14.0-18.0); Imm Gran Abs Auto 0.02 X10*3/uL (0.00-0.03); Imm Gran Pct Auto 0.2 % (0.0-0.4); Lymphocytes Absolute Auto 3.3 X10*3/uL (1.2-4.9); Mean Corpuscular HGB Conc 35.6 g/dl (31.0-36.0); Mean Corpuscular Hemoglobin 31.9 pg (27.0-33.0); Mean Corpuscular Volume 89.6 fL (80.0-98.0); NRBC Abs Auto 0.000 X10*3/uL (0.0-0.012); NRBC Pct Auto 0.0 /100WBC (0.0-0.2); Platelet Count 326 X10*3/uL (160-400); Red Blood Count 5.27 X10*6/uL (4.60-5.80); White Blood Count 10.4 X10*3/uL (4.8-10.8)
[2025-05-12 20:22] LABS: Ammonia 55 umol/L (13-55)
[2025-05-12 20:35] LABS: Alanine Aminotransferase 57 U/L (0-40); Albumin Level 4.5 g/dL (3.5-5.0); Alkaline Phosphatase 80 U/L (39-117); Anion Gap 16 (12-20); Aspartate Amino Transferase 27 U/L (5-37); Blood Urea Nitrogen 17 mg/dL (9-16); Calcium 9.7 mg/dL (8.4-10.2); Carbon Dioxide 26 mmol/L (22-29); Chloride 101 mmol/L (96-108); Creatinine Clr Calc Pharmacy 159.2; Estimated Glomerular Filt Rate > 60; Potassium 4.1 mmol/L (3.3-5.1); Sodium 139 mmol/L (135-145); Total Protein 8.4 g/dL (6.5-8.0)
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
[2025-05-13 07:40] VITALS: BP 126/87; PULSE 90; RESP 18; TEMP 36.8; O2SAT 93
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
== END 2025-05-13 10:08 | disposition home or self-care (01) | DRG 885 ==
LOC: HO.ED 06:59 → HO.PADLT16 11:38
PROVIDERS: Nurse Practitioner Psychiatric/Mental Health; Admitting Provider Registered Nurse; Emergency Provider Emergency Medicine; Visit Provider Psychiatry & Neurology Psychiatry
DX: F31.9 Bipolar disorder, unspecified (principal); R45.851 Suicidal ideations; F19.90 Other psychoactive substance use, unspecified, uncomplicated; I10 Essential (primary) hypertension; R45.850 Homicidal ideations; F17.210 Nicotine dependence, cigarettes, uncomplicated; Z71.6 Tobacco abuse counseling; Z62.810 Personal history of physical and sexual abuse in childhood; Z91.51 Personal history of suicidal behavior; Z91.52 Personal history of nonsuicidal self-harm; Z79.899 Other long term (current) drug therapy
CPT/HCPCS: 36415; 80048; 80053; 80061; 80076; 80143; 80164; 80179; 80307; 82140; 82947; 83036; 84439; 84443; 85025; 93005; 99285; S9485

== ENCOUNTER → 2025-05-06 04:10 | Outpatient (BNV) | payer MEDICARE, MEDICAID, SELFPAY | PROVIDERS: Admitting Provider Registered Nurse; Emergency Provider Emergency Medicine; Visit Provider Internal Medicine | DX: R00.0 Tachycardia, unspecified (principal) | CPT/HCPCS: 93010 ==

== ENCOUNTER → 2025-05-06 11:37 | Outpatient (BNV) | payer MEDICARE, MEDICAID, SELFPAY | PROVIDERS: Admitting Provider Registered Nurse; Emergency Provider Emergency Medicine; Visit Provider Nurse Practitioner Psychiatric/Mental Health | DX: F31.4 Bipolar disorder, current episode depressed, severe, without psychotic features (principal); F19.90 Other psychoactive substance use, unspecified, uncomplicated; R45.850 Homicidal ideations; I10 Essential (primary) hypertension; R45.851 Suicidal ideations; F43.10 Post-traumatic stress disorder, unspecified | CPT/HCPCS: 99231; 99232 ==

== ENCOUNTER 2025-05-28 11:45 | Outpatient (RCR) | payer MEDICARE, MEDICAID, SELFPAY ==
[2025-05-20 11:38] VITALS: BMI 42.7
[2025-05-20 11:39] VITALS: BP 102/74; PULSE 72; TEMP 36.3
--- NOTE | 2025-05-20 15:23 | PC.ADMIT ---
Patient is a 34 year old single male who was referred to [facility] by [facility] where patient was admitted from 05/06-05/13/25. Patient has a history of Bipolar I disorder recent episode manic severe. Patient also has a history of amphetamine abuse. Toxicology screen positive for benzodiazapines and marijuana. Prior to hospitalization patient stated, I was abusing my Adderall and I was in a crisis I was going to kill my dad and myself. My girl called crisis and they said they were going to call the software verification engineer and I took off and they found me two to [address] miles down the road. I got in the ambulance and they took me to [place]. patient reports he was crushing and sniffing his prescription Adderall for 7 days prior to hospitalization. Patient stated he is getting a development coach. Patient reports he would like to attend [facility] substance groups as well for more support. Patient is alert and oriented x4. He is calm and cooperative. He presented with depressed mood and affect. He denied SI, no HI. He was given a copy of his safety plan if needed. Patient reports he has a 8 year old son who is currently staying with his girlfriend in his home and he is currently staying at his mother in laws home as there is DCF involvement and this is the current arrangement per patient. Medications updated with patient and [facility] inpatient medication list. Patient reports he is taking medications as prescribed.
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
--- NOTE | 2025-05-22 15:00 | P.PNPSI_ITS ---
Subjective Subjective Reason For Visit: bipolar I Diagnostics Vital Signs (24Hr): BMI result Body Mass Index 42.7 Medications Medications Current Medications Gabapentin (Gabapentin 100 Mg Capsule) 100 mg PO TID NICOLE Allergies Allergies Allergy/AdvReac Type Severity Reaction Status Date / Time No Known Allergies (No Known Allergy Verified 05/06/25 03:27 Allergies*) Assessment & Plan Assessment & Plan Plan Admit to [facility] VS reviewed: afebrile, BP 102/74;?72 bpm Patient asking for BZD/Xanax to be restarted, however this was not continued from [facility] continue regular medications for now - no refills needed at this time Routine lab work as indicated EKG, routine for baseline QTc for medication considerations as indicated UDS as indicated [facility] reviewed - alprazolam last Rxed 04/23/25 Continue to monitor as per protocol Time Spent With Patient Time: Total time managing care of this patient today ____ minutes.
--- NOTE | 2025-05-22 16:39 | P.PNPSP_ITS ---
Subjective Subjective Date of Service: 05/22/25 Reason For Visit: bipolar I Interim History: Pt requested to meet with this assembly instructions writer today to discuss his meds. He reports that his bipolar and dperession are good but my anxiety is all over the place . Admits that he had been abusing Klonopin at home and he was tapered off benzos during his recent inpatient hospitalization. He states that his mom has agreed to monitor his meds to ensure that he doesn't abuse them this time and asks if t/w can prescribe Klonopin for him. Endorses significant stress w/ bills, having to file bankrupcty, DCF involvement, social anxiety. [id number]-[id number] people keep showing up at his door, which sends him into an immediate panic attack. Cold showers help calm him down somewhat. Sleep is 'all over the place'. up every 1-2 hrs. Can't tolerate CPAP since he's edentulous. He is hoping to lose enough weight so he can get an implanted device for ROBB. He's on Zepbound and has gone down from 355 lb to 314 prior to recent psych admission, now weighs 323 lb. He's 6'1 Denies SI or violent ideation Endorses racing thoughts, flashbacks related to PTSD Denies sx of psychosis Reports having a learning disability Reports that DCF had gotten invovled due to his bipolar mood swings, fighting w/ his [id number]. He can't be alone w/ his child. Currently living at [facility]. Substance use- Marijuana-trying to cut down. uses for anxiety but causes paranoia. Smokes 1.5 ppd. Has rx for nicotine patch but doesn't want to use it Denies ETOH use since age 19 Prior Med Trials that pt can recall risperdal- didn't help Topamax- weight gain sertraline-didnt' help Wellbutrin- nasty taste, no help clonidine-- stil lhad bad panic attacks Xanax-- worked very well. Had 40 tabs left (per pt) but friend stole them Klonopin-helped but over-used Lorazepam- didn't help Haldol- didn't hep w/ anxiety Reviewed curent meds Latuda was tapered to 80 mg due to excessive daytime sedation at 120 mg/day Medication Compliance: Yes Side effects from medications: Yes (see above) Attending Groups: Yes Review of Systems Medical Review of Systems: unchanged Mental Status Exam Mental Status Exam Narrative: Cooperative Grooming/hygiene wnl. casually dressed. good eye contact Speech is fluent and wnl Motor activity is calm and without any tics, tremors or dyskinesias Mood is as noted above Affect is calm, somewhat anxious Thought process is goal directed,without evidence of FTD Denies SI/violent ideation Denies AH/VH, doesn't appear to respond to internal stimuli A/O x 3 Insight generally intact Judgment fair Diagnostics Vital Signs (24Hr): BMI result Body Mass Index 42.7 Assessment & Plan Assessment & Plan (1) Bipolar disorder: Status: Acute Code(s): F31.9 - Bipolar disorder, unspecified (2) PTSD (post-traumatic stress disorder): Status: Acute Code(s): F43.10 - Post-traumatic stress disorder, unspecified Plan Continue PHP I explained to pt that I am not going to prescribe any benzos for him at this time and he was accepting of this Offered alternative options for tx of anxiety and he was agreeable w/ trial fo gabapentin. Will start at 100 mg tid over the weekend and then titrate as needed/tolerated Could consider adding perphenazine off-label for tx of anxiety in the future Continue: VPA 1500 mg qhs escitalopram 20 m qd hydroxyzine 50 mg q 6 hrs prn for anxiety Latuda 80 mg qd (decreased from 120 mg due to excessive daytime sedation) melatonin 80 mg qhs prn for insomnia thiamine Pt doesn't currently have a psychiatric provider in [place] and is hoping to get connected with providers at [facility] or [facility] Pt is not currently at high risk of harm to self He is at low risk of harm to others Patient educated on: diagnosis, medication risk/benefits, substance abuse and therapeutic strategies Informed Consent: understands Reason for contiued partial hosp. stay Substantial Risk for: inability to function Certification I certify that partial hospital treatment is medically necessary due to the symptoms and problems resulting from the patient's mental illness and the failure to treat the patient at the partial hospital level of care would likely result in the patient requiring inpatient psychiatric care which could not be prevented at a less intensive level of care. Total time managing care of this patient today __60__ minutes. Discharge Plan Discharge Attending provider: Latonya Yuen Medications: New gabapentin 100 mg capsule 100 mg PO TID 7 Days Qty: 21 0RF No Action nicotine 21 mg/24 hr patch 24 hour 1 patch topical DAILY albuterol sulfate 90 mcg/actuation HFA aerosol inhaler 2 puff INHALATION Q4H PRN (Reason: wheezing) ipratropium bromide 21 mcg (0.03 %) spray,non-aerosol 1 spray intranasal BID PRN (Reason: congestion) hydroxyzine HCl 50 mg Tablet 50 mg PO Q6H PRN (Reason: anxiety) Qty: 90 0RF divalproex 500 mg Tablet Extended Release 24 Hr 1,500 mg PO BEDTIME Qty: 90 0RF lurasidone [Latuda] 80 mg Tablet 80 mg PO DAILY@1700 Qty: 30 0RF melatonin 3 mg Tablet 9 mg PO BEDTIME Qty: 90 0RF thiamine mononitrate (vit B1) 100 mg Tablet 100 mg PO DAILY Qty: 30 0RF multivitamin Tablet 1 tab PO DAILY Qty: 30 0RF polyethylene glycol 3350 17 gram powder in packet 17 g PO DAILY PRN (Reason: Constipation) Qty: 14 0RF omeprazole 40 mg Capsule,Delayed Release(Dr/Ec) 40 mg PO DAILY PRN (Reason: Acid Reflux) Qty: 30 0RF Rx Instructions: Last filled 03/26/25 lisinopril 10 mg tablet 10 mg PO DAILY Qty: 30 0RF escitalopram oxalate 20 mg Tablet 20 mg PO DAILY Qty: 30 0RF Zepbound 7.5 mg/0.5 mL pen injector 7.5 mg subcut QWEEK Qty: 2 0RF Print Language: Tristanian
--- NOTE | 2025-05-25 11:18 | HO.PHP ---
PHP Admin, Meera, received a phone call from Carl stating that he will not be in attendance to program because he is working on getting his lab work completed and he has a PCP appointment to attend. Meera voiced there are no safety concerns and he will be in attendance to program tomorrow.
--- NOTE | 2025-05-27 19:55 | HO.PHPPROGNO ---
Subjective Subjective Date of Service: 05/26/25 Reason For Visit: bipolar I Diagnostics Vital Signs (24Hr): BMI result Body Mass Index 42.7 Assessment & Plan Certification I certify that partial hospital treatment is medically necessary due to the symptoms and problems resulting from the patient's mental illness and the failure to treat the patient at the partial hospital level of care would likely result in the patient requiring inpatient psychiatric care which could not be prevented at a less intensive level of care. Total time managing care of this patient today ____ minutes. Discharge Plan Discharge Attending provider: Latonya Yuen Medications: New gabapentin 100 mg capsule 100 mg PO TID 7 Days Qty: 21 0RF No Action nicotine 21 mg/24 hr patch 24 hour 1 patch topical DAILY albuterol sulfate 90 mcg/actuation HFA aerosol inhaler 2 puff INHALATION Q4H PRN (Reason: wheezing) ipratropium bromide 21 mcg (0.03 %) spray,non-aerosol 1 spray intranasal BID PRN (Reason: congestion) hydroxyzine HCl 50 mg Tablet 50 mg PO Q6H PRN (Reason: anxiety) Qty: 90 0RF divalproex 500 mg Tablet Extended Release 24 Hr 1,500 mg PO BEDTIME Qty: 90 0RF lurasidone [Latuda] 80 mg Tablet 80 mg PO DAILY@1700 Qty: 30 0RF melatonin 3 mg Tablet 9 mg PO BEDTIME Qty: 90 0RF thiamine mononitrate (vit B1) 100 mg Tablet 100 mg PO DAILY Qty: 30 0RF multivitamin Tablet 1 tab PO DAILY Qty: 30 0RF polyethylene glycol 3350 17 gram powder in packet 17 g PO DAILY PRN (Reason: Constipation) Qty: 14 0RF omeprazole 40 mg Capsule,Delayed Release(Dr/Ec) 40 mg PO DAILY PRN (Reason: Acid Reflux) Qty: 30 0RF Rx Instructions: Last filled 03/26/25 lisinopril 10 mg tablet 10 mg PO DAILY Qty: 30 0RF escitalopram oxalate 20 mg Tablet 20 mg PO DAILY Qty: 30 0RF Zepbound 7.5 mg/0.5 mL pen injector 7.5 mg subcut QWEEK Qty: 2 0RF Stand Alone Forms: Patient Portal Discharge page Print Language: Latvian
--- NOTE | 2025-05-27 19:56 | HO.PHPPROGNO ---
Subjective Subjective Date of Service: 05/27/25 Reason For Visit: bipolar I Interim History: Pt reports that he's doing 'okay'. Doing well w/ the VPA. Denies SI. Still having panic attacks. Agrees with my recs to titrate gabapentin for tx of anxiety (off-label) Mental Status Exam Mental Status Exam Narrative: Appearance: Casually dressed. Grooming/hygiene wnl. Fair eye contact Attitude:Cooperative Speech: Fluent and wnl in regard to volume, tone, prosody Motor activity: Calm and without any tics, tremors or dyskinesias. Steady gait Mood: anxious Affect: appropriate, reactive Thought process: goal directed and without evidence of formal thought disorder Thought content: as noted above. Denies SI/violent ideaiton Perception: does not appear to respond to internal stimuli Alert/oriented in all spheres Cognition grossly intact Insight: fair Judgment: fair Diagnostics Vital Signs (24Hr): BMI result Body Mass Index 42.7 Assessment & Plan Assessment & Plan (1) Bipolar disorder: Status: Acute Code(s): F31.9 - Bipolar disorder, unspecified (2) CANDIE (generalized anxiety disorder): Status: Acute Code(s): F41.1 - Generalized anxiety disorder Plan Pt is agreeable w/ my recs to titrate gabpaentin to 200 mg tid for off-label tx of anxiety otherwise continue current tx plan/PHP Patient educated on: medication risk/benefits Informed Consent: understands Reason for contiued partial hosp. stay Substantial Risk for: med/psych decompensation Certification I certify that partial hospital treatment is medically necessary due to the symptoms and problems resulting from the patient's mental illness and the failure to treat the patient at the partial hospital level of care would likely result in the patient requiring inpatient psychiatric care which could not be prevented at a less intensive level of care. Total time managing care of this patient today _30___ minutes. Discharge Plan Discharge Attending provider: Latonya Yuen Additional Instructions: 06/24/2025? 10:00 AM - 11:00 AM Psychiatric E/M New -?Face to Face v2 Prog: [facility] Clinic Site: [address] [place] [address] Staff: Maria Esther Pickett Medications: No Action nicotine 21 mg/24 hr patch 24 hour 1 patch topical DAILY albuterol sulfate 90 mcg/actuation HFA aerosol inhaler 2 puff INHALATION Q4H PRN (Reason: wheezing) ipratropium bromide 21 mcg (0.03 %) spray,non-aerosol 1 spray intranasal BID PRN (Reason: congestion) polyethylene glycol 3350 17 gram powder in packet 17 g PO DAILY PRN (Reason: Constipation) Qty: 14 0RF Zepbound 7.5 mg/0.5 mL pen injector 7.5 mg subcut QWEEK Qty: 2 0RF Rx Instructions: Mondays gabapentin 100 mg Capsule 100 mg PO TID Qty: 90 0RF multivitamin Tablet 1 tab PO DAILY Qty: 30 0RF hydroxyzine HCl 50 mg Tablet 50 mg PO BID PRN (Reason: anxiety) Qty: 60 0RF melatonin 3 mg Tablet 9 mg PO BEDTIME Qty: 90 0RF omeprazole 40 mg Capsule,Delayed Release(Dr/Ec) 40 mg PO DAILY PRN (Reason: Acid Reflux) Qty: 30 0RF Rx Instructions: Last filled 03/26/25 lisinopril 10 mg tablet 10 mg PO DAILY Qty: 30 0RF divalproex 500 mg Tablet Extended Release 24 Hr 1,500 mg PO BEDTIME Qty: 90 0RF escitalopram oxalate 20 mg Tablet 20 mg PO DAILY Qty: 30 0RF thiamine mononitrate (vit B1) 100 mg Tablet 100 mg PO DAILY Qty: 30 0RF lurasidone [Latuda] 80 mg Tablet 80 mg PO DAILY@1700 Qty: 30 0RF alprazolam [Xanax] 1 mg tablet 1 mg PO BID PRN (Reason: severe anxiety ) Qty: 14 0RF Stand Alone Forms: Patient Portal Discharge page Print Language: [place]inean
[2025-05-28 14:55] LABS: Cannabinoid Screen Urine POSITIVE (Not Detect)
--- NOTE | 2025-05-28 15:00 | HO.PHP ---
PHP staff member reached out to Carl due to being informed that he was not in attendance to group 3 and currently not in group 4. PHP staff member asked Carl where he was. Carl noted that he is in his car in the parking lot because he has been too tired and anxious to engage in groups today. Carl expressed that he told a staff member that he was stepping out to get air. PHP staff member disclosed that when someone ask for a break it should be no longer then 10 minutes. PHP staff stated that he missed 2 whole groups at this time. Carl said he is aware. [facility] staff member assessed safety, in which Carl disclosed no safety concerns around SI, plan or intent and that he will be in attendance to program tomorrow. Carl did talk about him sleeping out of his car, in which he said he [place] staying [place] but the bed in the trailor i not comfortable so he resorts to his car. [facility] staff suggested that she could provide him with resources on homeless shelters. Carl declined.
--- NOTE | 2025-05-29 09:42 | PM.EVENT ---
Event Note Date of Service: 05/29/25 Event Note: Pt didn't show up today to [facility]. He has had inconsistent attendance and has been sleeping in his car at times in the parking lot here. U tox done yesterday is positive for amphetamines, benzos and cannabinoids. [facility] staff spoke w/ pt's mother today, who reports that pt is currently safe but she is looking into pursuing a section 35, which she has done in the past. Time Spent With Patient Time: Total time managing care of this patient today ____ minutes.
--- NOTE | 2025-05-29 12:57 | HO.PHP ---
Clinical Laboratory Science Professor called Carl twice, he did not answer and scientific technical writer left voicemail. Clinical Laboratory Science Professor spoke with Carl's mother Radha, she said he will not be in to program today. Later, Carl returned scientific technical writer's call and reported that he overslept and plans to return to program on sunday
== END 2025-05-28 23:59 | disposition admitted as inpatient to this hospital (09) ==
LOC: HO.PHPA 11:45
PROVIDERS: Visit Provider Psychiatry & Neurology Psychiatry
DX: F31.13 Bipolar disorder, current episode manic without psychotic features, severe (principal); F41.1 Generalized anxiety disorder; F43.10 Post-traumatic stress disorder, unspecified; F13.20 Sedative, hypnotic or anxiolytic dependence, uncomplicated; Z79.899 Other long term (current) drug therapy
CPT/HCPCS: 80307; 90791; 90853

== ENCOUNTER 2025-06-02 16:45 | Inpatient (IN) | payer MEDICARE, MEDICAID, SELFPAY ==
[2025-06-02 16:53] VITALS: BP 128/87; BP 164/86; PULSE 111; PULSE 87; RESP 18; TEMP 37; O2SAT 94; O2SAT 96; BMI 41.6
[2025-06-02 17:08] VITALS: BP 128/87; PULSE 111; RESP 18; TEMP 37; O2SAT 94
[2025-06-02 17:18] LABS: Appearance Urine Clear; Glucose Urine UA Negative (Negative); PH 7.0 (5.0-9.0); Specific Gravity - Urine 1.025 (1.005-1.025)
[2025-06-02 17:33] LABS: Cannabinoid Screen Urine POSITIVE (Not Detect)
[2025-06-02 18:06] LABS: MANUAL DIFF FLAG NO
[2025-06-02 18:08] LABS: Hematocrit 43.0 % (42.0-52.0); Hemoglobin 14.9 g/dl (14.0-18.0); Imm Gran Abs Auto 0.04 X10*3/uL (0.00-0.03); Imm Gran Pct Auto 0.4 % (0.0-0.4); Lymphocytes Absolute Auto 2.1 X10*3/uL (1.2-4.9); Mean Corpuscular HGB Conc 34.7 g/dl (31.0-36.0); Mean Corpuscular Hemoglobin 31.8 pg (27.0-33.0); Mean Corpuscular Volume 91.7 fL (80.0-98.0); NRBC Abs Auto 0.000 X10*3/uL (0.0-0.012); NRBC Pct Auto 0.0 /100WBC (0.0-0.2); Platelet Count 309 X10*3/uL (160-400); Red Blood Count 4.69 X10*6/uL (4.60-5.80); White Blood Count 9.9 X10*3/uL (4.8-10.8)
[2025-06-02 18:24] LABS: Alanine Aminotransferase 29 U/L (0-40); Albumin Level 4.3 g/dL (3.5-5.0); Alkaline Phosphatase 74 U/L (39-117); Anion Gap 15 (12-20); Aspartate Amino Transferase 23 U/L (5-37); Blood Urea Nitrogen 12 mg/dL (9-16); Calcium 9.7 mg/dL (8.4-10.2); Carbon Dioxide 28 mmol/L (22-29); Chloride 104 mmol/L (96-108); Creatinine Clr Calc Pharmacy 161.4; Estimated Glomerular Filt Rate > 60; Potassium 4.0 mmol/L (3.3-5.1); Sodium 143 mmol/L (135-145); Total Protein 8.1 g/dL (6.5-8.0)
--- NOTE | 2025-06-02 18:26 | ED_ITS ---
HPI - General Adult General Chief complaint: Psychiatric Symptoms Stated complaint: section 12 BH Time Seen by Provider: 06/02/25 16:51 Source: patient, RN notes reviewed and old records reviewed Mode of arrival: EMS Limitations: no limitations History of Present Illness ED Provider: Black HPI narrative: 34-year-old male past medical history significant for bipolar disorder, hypertension, anxiety presents for evaluation of reported suicidal ideation. The patient was apparently at core as his mother was trying to section him due to reported page. The patient states he has been sleeping in his car and because of this his mother thinks that he is not sleeping at all. The patient explicitly denies any depression or suicidal comments. He is adamant he has no thoughts of harming himself or anybody else he has no somatic complaints the patient feels as though he is at his baseline and does not feel that he is manic the patient admits to occasional marijuana use but no other alcohol or drugs. Related Data Home Medications ?Medication ?Instructions ?Recorded ?Confirmed albuterol sulfate 90 mcg/actuation 2 puff inhalation Q 4H PRN wheezing 05/06/25 06/02/25 aerosol inhaler ipratropium bromide 21 mcg (0.03 1 spray intranasal BI D PRN 05/06/25 06/02/25 %) nasal spray congestion nicotine 21 mg/24 hr daily 1 patch topical DAILY 05/0606/02/25 transdermal patch alprazolam 1 mg tablet 1 mg PO TID PRN Anxiety 11/2506/02/25 Previous Rx's ?Medication ?Instructions ?Recorded divalproex 500 mg tablet,extended 1,500 mg (3 x 500 mg ) PO BEDTIME 05/13/25 release 24 hr Mood #90 tabs escitalopram oxalate 20 mg tablet 20 mg PO DAILY #30 t abs 05/13/25 hydroxyzine HCl 50 mg tablet 50 mg PO Q6H PRN anxiety #90 tabs 05/13/25 lisinopril 10 mg tablet 10 mg PO DAILY HTN #30 tabs 05/13/25 lurasidone 80 mg tablet (Latuda) 80 mg PO DAILY@1700 M ood #30 tabs 05/13/25 melatonin 3 mg tablet 9 mg (3 x 3 mg) PO BEDTIME 0 05/13/25 insomnia #90 tabs multivitamin 1 tab PO DAILY supplement # 30 tabs 05/13/25 omeprazole 40 mg capsule,delayed 40 mg PO DAILY PRN Ac id Reflux #30 05/13/25 release caps polyethylene glycol 3350 17 gram 17 g PO DAILY PRN Con stipation #14 05/13/25 oral powder packet ea thiamine mononitrate (vit B1) 100 100 mg PO DAILY #30 tabs 05/13/25 mg tablet tirzepatide (weight loss) 7.5 7.5 mg (0.5 mL) subcut Q WEEK 05/13/25 mg/0.5 mL subcutaneous pen weight management #2 mL injector (Zepbound) gabapentin 100 mg capsule See Rx Instructions .Route 0 05/27/25 .COMPLEX 14 days #126 caps Allergies Allergy/AdvReac Type Severity Reaction Status Date / Time No Known Allergies (No Known Allergy Verified 06/02/25 17:05 Allergies*) Review of Systems 2 Constitutional: Constitutional: Denies body ache(s), Denies chills and Denies headache(s) Eyes: Eyes: Denies blurry vision ENT: Denies headache(s) Cardiovascular: Cardiovascular: Denies chest pain and Denies dyspnea on exertion Respiratory: Respiratory: Denies cough and Denies dyspnea on exertion Gastrointestinal: Gastrointestinal: Denies abdominal pain, Denies nausea and Denies vomiting Musculoskeletal: Musculoskeletal: Denies back pain Integumentary/Breasts: Skin/Breast: Denies acne Neurologic: Denies headache(s) [facility] Past Medical History Medical History (Updated 06/02/25 @ 21:24 by Sarbjit Cleaning) Opioid use disorder Misuse of medication Hiatal hernia Nephrolithiasis Urinary retention Hypoventilation syndrome Sleep apnea HTN (hypertension) High cholesterol Prediabetes Asthma Bipolar disorder Surgical History Hx of tonsillectomy Social History Social History Household Members: Significant Other, Family and Children Household Members Other:: Fiance and Son Housing: Apartment Do you presently have visiting nurse or other home services: No Unable to assess alcohol history related to: Unknown Alcohol intake: never Patient Tobacco Use Status: Current everyday Tobacco user Tobacco use type: Cigarette Cigarette Packs Per Day: 1.5 Cigarettes Per Day: 30.0 Years Smoked: 20 Smoked in Last 30 Days: No e-Cigarette/Vaping Use: Never Used Second Hand Smoke Exposure: No Substance Use Type: Marijuana and Prescription Drugs Advance Directives: No Advance Directives Information Provided: No Do you have a plan to hurt others: No Plan service: No Sexual orientation: Straight/Heterosexual Physical Exam ED Vital Signs: Vital Signs - 24 hr 06/02/25 16:53 06/02/25 17:08 Temperature 98.6 F 98.6 F Pulse Rate 111 H 111 H Respiratory Rate 18 18 Blood Pressure 128/87 128/87 Pulse Oximetry 94 94 Oxygen Delivery Method Room Air Room Air BMI result Body Mass Index 41.6 Const General: healthy appearing, comfortable, no acute distress, alert and awake Nutritional Appearance: well nourished Orientation/consciousness: patient oriented x3 HENMT Head: Yes normocephalic and Yes atraumatic Eyes Eyelids: Yes eyelids normal Conjunctivae: conjunctivae normal Sclerae: sclerae normal Corneas: corneas normal Pupils: Equal, round and reactive pupils present EOM: EOMs intact bilaterally Neck Neck: Yes full ROM Resp Effort & Inspection: normal respiratory effort, able to speak in complete sentences and not labored GI Inspection: No distended Palpation (GI): Soft to palpation, not firm, nontender, no guarding and not rigid Skin General skin exam: elasticity normal Neuro General: patient oriented x3 Cranial nerves: Yes Equal, round and reactive pupils present and Yes Bilaterally intact EOM present Cognition (Neuro): normal cognition Extrem Other: Moving all extremities well without any obvious deformities Course Reevaluation(s) Reevaluation #1: patient is seen with the care team and will be a bed search for inpatient psychiatric care. After discussion with the patient's mother, the patient has been paranoid and delusional Time: 21:23 Reevaluation #2: Time: 04:51 Date: 06/03/25 Provider: Andi Xie MD Patient in physician observation for psychiatric evaluation.? patient has been in the emergency department for 12 hours and has been evaluated by the care team in his an inpatient bed search. No acute events reported overnight. No current complaints. VS stable.? Will continue to monitor. Medications Administered Generic Name Dose Route Start Last Admin Trade Name Freq PRN Reason Stop Dose Admin Divalproex Sodium 1,500 mg 06/02/25 21:00 06/02/25 20:51 Divalproex Sodium Er 500 Mg Tab.Er.24h PO 1,500 mg BEDTIME NICOLE Administration Gabapentin 300 mg 06/02/25 21:00 06/02/25 20:51 Gabapentin 100 Mg Capsule PO 300 mg TID NICOLE Administration Melatonin 9 mg 06/02/25 21:00 06/02/25 20:51 Melatonin 3 Mg Tablet PO 9 mg BEDTIME NCIOLE Administration Medical Decision Making Medical Decision Making [facility] Narrative: 34-year-old male past medical history as above presents for evaluation of reported suicidal comments in court. The patient is adamant he did not make any suicidal comments and he does not have any suicidal thoughts. He does not feel manic. During my evaluation he is very calm and cooperative, he does not present as manic. his medical workup is largely unremarkable, we will get a care team consult Differential Diagnosis Differential Diagnoses: The differential diagnosis associated with the presentation includes depression Suicidal ideation Page Medication noncompliance Lab Data [facility] Lab Attestation statement: I reviewed the patient's lab results. No leukocytosis or anemia. Normal platelet count. No electrolyte abnormalities warranting intervention. 06/02/25 18:01 06/02/25 18:01 Labs: Lab Results 06/02/25 06/02/25 Range/Units 17:11 18:01 WBC 9.9 (4.8-10.8) X10*3/uL RBC 4.69 (4.60-5.80) X10*6/uL Hgb 14.9 (14.0-18.0) g/dl Hct 43.0 (42.0-52.0) % MCV 91.7 (80.0-98.0) fL MCH 31.8 (27.0-33.0) pg MCHC 34.7 (31.0-36.0) g/dl RDW 12.6 (11.0-16.0) % Plt Count 309 (160-400) X10*3/uL MPV 9.8 (9.4-12.4) fL Immature Gran % (Auto) 0.4 (0.0-0.4) % Neut % (Auto) 69.2 (45-73) % Lymph % (Auto) 21.4 (20-40) % [place] % (Auto) 4.7 (2-11) % Eos % (Auto) 3.9 (0-4) % Baso % (Auto) 0.4 (0-2) % Lymph # (Auto) 2.1 (1.2-4.9) X10*3/uL [place] # (Auto) 0.5 (0.1-1.2) X10*3/uL Eos # (Auto) 0.4 (0.0-0.4) X10*3/uL Baso # (Auto) 0.0 (0.0-0.2) X10*3/uL Abs Immat Gran (auto) 0.04 H (0.00-0.03) X10*3/uL Absolute Neuts (auto) 6.8 (2.0-8.3) x10*3/uL Absolute Nucleated RBC 0.000 (0.0-0.012) X10*3/uL Nucleated RBC % (auto) 0.0 (0.0-0.2) /100WBC Sodium 143 (135-145) mmol/L Potassium 4.0 (3.3-5.1) mmol/L Chloride 104 (96-108) mmol/L Carbon Dioxide 28 (22-29) mmol/L Anion Gap 15 (12-20) BUN 12 (9-16) mg/dL Creatinine 0.94 (0.5-1.4) mg/dL Estim Creat Clear Calc 161.4 Estimated GFR > 60 Random Glucose 83 (60-115) mg/dL Calcium 9.7 (8.4-10.2) mg/dL Total Bilirubin 0.4 (0.0-1.0) mg/dL AST 23 (5-37) U/L ALT 29 (0-40) U/L Alkaline Phosphatase 74 (39-117) U/L Total Protein 8.1 H (6.5-8.0) g/dL Albumin 4.3 (3.5-5.0) g/dL Urine Color Yellow Urine Appearance Clear Urine pH 7.0 (5.0-9.0) Ur Specific Emmett 1.025 (1.005-1.025) Urine Protein Trace (Neg-Trace) mg/dL Urine Glucose (UA) Negative (Negative) mg/dL Urine Ketones Trace (Negative) mg/dL Urine Blood Negative (Negative) Urine Nitrite Negative (Negative) Ur Leukocyte Esterase Negative (Negative) Urine RBC 0-2 (0-2) /HPF Urine WBC 0-5 (0-5) /HPF Ur Squamous Epith Cells 0-2 (0-2) /HPF Urine Bacteria None Seen (None Seen) Hyaline Casts 0-2 (0-2) /LPF Urine Opiates Screen Not Detected (Not Detect) Ur Buprenorphine Scrn Not Detected (Not Detect) ng/mL Ur Oxycodone Screen Not Detected (Not Detect) ng/mL Urine Methadone Screen Not Detected (Not Detect) ng/mL Urine Fentanyl Screen Not Detected (Not Detect) Ur Barbiturates Screen Not Detected (Not Detect) Valproic Acid < 12.5 L (50.0-100.0) mcg/mL Ur Phencyclidine Scrn Not Detected (Not Detect) Ur Amphetamines Screen Not Detected (Not Detect) U Benzodiazepines Scrn POSITIVE H (Not Detect) Urine Cocaine Screen Not Detected (Not Detect) U Marijuana (THC) Screen POSITIVE H (Not Detect) Ethyl Alcohol < 10 mg/dL Discharge Plan Discharge Clinical Impression: Acute paranoia Prescriptions: No Action gabapentin 100 mg capsule See Rx Instructions .ROUTE .COMPLEX 14 Days Qty: 126 0RF Rx Instructions: Take two caps po tid for 2 days then take three caps po tid nicotine 21 mg/24 hr patch 24 hour 1 patch topical DAILY albuterol sulfate 90 mcg/actuation HFA aerosol inhaler 2 puff INHALATION Q4H PRN (Reason: wheezing) ipratropium bromide 21 mcg (0.03 %) spray,non-aerosol 1 spray intranasal BID PRN (Reason: congestion) hydroxyzine HCl 50 mg Tablet 50 mg PO Q6H PRN (Reason: anxiety) Qty: 90 0RF divalproex 500 mg Tablet Extended Release 24 Hr 1,500 mg PO BEDTIME Qty: 90 0RF lurasidone [Latuda] 80 mg Tablet 80 mg PO DAILY@1700 Qty: 30 0RF melatonin 3 mg Tablet 9 mg PO BEDTIME Qty: 90 0RF thiamine mononitrate (vit B1) 100 mg Tablet 100 mg PO DAILY Qty: 30 0RF multivitamin Tablet 1 tab PO DAILY Qty: 30 0RF polyethylene glycol 3350 17 gram powder in packet 17 g PO DAILY PRN (Reason: Constipation) Qty: 14 0RF omeprazole 40 mg Capsule,Delayed Release(Dr/Ec) 40 mg PO DAILY PRN (Reason: Acid Reflux) Qty: 30 0RF Rx Instructions: Last filled 03/26/25 lisinopril 10 mg tablet 10 mg PO DAILY Qty: 30 0RF escitalopram oxalate 20 mg Tablet 20 mg PO DAILY Qty: 30 0RF Zepbound 7.5 mg/0.5 mL pen injector 7.5 mg subcut QWEEK Qty: 2 0RF alprazolam 1 mg tablet 1 mg PO TID PRN (Reason: Anxiety) Interventions: [place]-Suicide Risk Severity Scale Last Done: 06/03/25 04:16 Print Language: Gambian
--- NOTE | 2025-06-02 18:30 | PC.NURSE ---
Pt arrives via EMS from court on a 12A , His Mother filed for a Section 35 that was denied. She has concerns for increased SI statements, insomnia, saying goodbye to family member. He has remained sravanthi, and cooperative. He is aware of why he is here. He denies SI/HI/AVH
--- OUTSIDE RECORDS SUMMARY | 2025-06-02 18:42 | XMS_ITS | Clinical Summary ---
Author Organization [facility] Address [address] [place] [address] Care Team Providers Care Logging Engineer Name Role Phone Kip Malcolm Primary Care Provider [phone] Source Comments PLEASE NOTE, if this patient is a minor, it may be UNLAWFUL to discuss sensitive information that is contained in these records (such as FAMILY PLANNING, MENTAL HEALTH or SUBSTANCE ABUSE) with the minor patient's parent or other person without the patient's specific authorization.[facility] Allergies No known active allergies Medications dextroamphetamin e-amphetamine (ADDERALL) 20 mg tablet TAKE 1 TABLET BY MOUTH TWICE DAILY DIRECTED 2 Active ziprasidone HCL (GEODON) 80 mg capsule TAKE 1 CAPSULE BY MOUTH TWICE DAILY WITH FOOD 2 Active traZODone (DESYREL) 100 mg tablet TAKE 1 AND 1/2 TABLETS BY MOUTH AT BEDTIME DIRECTED 2 Active nicotine (NICODERM CQ) 21 mg/24 hr patch APPLY 1 PATCH TOPICALLY TO THE SKIN EVERY DAY 2 Active nicotine (NICODERM CQ) 21 mg/24 hr patchIndications :Cigarette nicotine dependence without complication Place 1 Patch onto the skin once daily (every 24 hours) 28 Patch 2 Active STIMULANT LAXATIVE PLUS 8.6-50 mg per tabletIndication s:Drug-induced constipation TAKE 1 TABLET BY MOUTH ONCE DAILY NEEDED FOR CONSTIPATION 60 Tablet 1 2 Active lisinopriL 10 mg tabletIndication s:Primary hypertension Take 1 Tablet by mouth once daily 60 Tablet 1 3 Active Active Problems Problem Noted Date Diagnosed Date Rash 02/02/2022 Opioid type dependence, unspecified 02/02/2022 Cigarette nicotine dependence without complicati on 02/02/2022 Suppurative hidradenitis 02/02/2022 Immunizations Immunization Administration Dates Next Due Flu, Cell Culture based, Mul ti Dose, 6m+, Flucelvax 09/21/2017 Flu, Cell Culture based, Pre servative Free, 6m+, Flucelvax 06/17/2018 Flu, Preservative Free 08/11/2021 HEP B,ADULT 07/19/2012, 2,11/22/2011,2000,09/12/2000 INFLUENZA VIRUS VACCINE P&EM IC FORMULATION 09/16/2009 INFLUENZA, SEASONAL, INJECTABLE 09/16/2009 PFIZER COVID VACCINE, PURPLE CAP, 12+ 02/15/2021 ,01/25/2021 TDAP 05/24/2016,09/16/2009 Varicella (Varivax), Live Vaccine 09/16/2009 Social History Tobacco Use Types Packs/Day Years Used Date Smoking Tobacco: Every Day Smokeless Tobacco: Never Tobacco Cessation:Ready to Q uit: Yes Alcohol Use Standard Drinks/Week Comments Never 0 (1 standard drink = 0.6 oz pur e alcohol) Social Connections Answer Date Recorded Connectedness 0 02/02/2022 Financial Resource Strain Answer Date R ecorded Financial Resource Strain 0 2021 Stress Answer Date Recorded Stress 0 02/02/2022 Physical Activity Answer Date Recorded Physical Activity 0 02/02/2022 Food Insecurity Answer Date Recorded Food 0 02/02/2022 Transportation Needs Answer Date Record ed Transportation 0 02/02/2022 Housing Stability Answer Date Recorded Housing 0 02/02/2022 Safety and Environment Answer Date Kyle rded Safety 0 02/02/2022 Utilities Answer Date Recorded Utilities 0 02/02/2022 Employment Answer Date Recorded Stress 0 02/02/2022 Sex and Gender Information Value Date Recorded Sex Assigned at Male 02/02/2022 8:48 AM PDT Legal Sex Male 10:19 AM PST Gender Identity Male 02/02/2022 8:48 AM PDT Sexual Orientation Straight 02/02/2022 8 :48 AM PDT Last Filed Vital Signs Vital Sign Reading Time Taken Comments Blood Pressure 131/91 02/02/2022 11:00 AM EDT Pulse 86 02/02/2022 11:00 AM EDT Temperature 36.2 C (97.2 F) 02/02/2022 11:00 AM EDT Respiratory Rate 20 02/02/2022 11:00 AM EDT Oxygen Saturation 100% 02/02/2022 11:00 AM EDT Inhaled Oxygen Concentration - - Weight 119.3 kg (263 lb) 02/02/2022 11:00 AM EDT Height 183 cm (6' 0.05 ) 02/02/2022 11:00 AM EDT Body Mass Index 35.62 02/02/2022 11:00 AM EDT Plan of Treatment Health Maintenance Due Date Last Done Comments Anxiety Screening 1988 Imm-Pneumococcal (1 of 2 - PCV) 12/21/2007 Annual Wellness (Adult): Ind icated (All Coverage) 02/02/2023 02/02/2022 Tobacco Cessation Counseling (#1) 02/02/2023 022 Tobacco Screening 02/02/2023 02/02/2022 Diabetes Screening 09/20/2023 09/20/2022 Lipid Screening 09/20/2023 09/20/2022 [id number] () 06/01/2024 08/15/2022, 02/15/2021, 01/25/2021 Alcohol and Drug Screen 10/01/2024 02/02/2022 Depression Annual Screen 10/01/2024 02/02/2022 Hypertension Screening (#1) 02/01/2025 Imm-Influenza (#1) 2025 10/10/2022, 1 10/11/2020, 06/17/2018, Additional history exists Imm-DTaP/Tdap/Td (3 - Td or Tdap) 05/24/2026 016, 09/16/2009 Imm-Hepatitis B Completed 07/19/2012, 12/30, 11/22/2011, Additional history exists HIV Screening Completed 09/20/2022 Hepatitis C Screening Completed 09/20/2022 Procedures Procedure Name Priority Date/Time Associated Diagnosis Comments HIV 1/2 AG & AB W/RFLX (4TH GEN) Routine 09/20/2022 8:37 AM EST Routine adult health maintenance HEPATITIS C AB W/RFLX HCV RNA, QT, RT PCR Routine 09/20/2022 8:37 AM EST Routine adult health maintenance HGBA1C W/MPG Routine 09/20/2022 8:37 AM EST Routine adult health maintenance LIPID PANEL Routine 09/20/2022 8:37 AM EST Routine adult health maintenance from Last 3 Months or Most Recently Relevant to Health Maintenance Results * HEPATITIS C AB W/RFLX HCV RNA, QT, RT PCR (09/20/2022 8:37 AM EST) HEPATITIS C ANTIBODY NON-REACT ANDIE NON-REACT ANDIE [facility] SIGNAL TO CUT-OFF 0.09 <1.00 [facility] Comment: HCV antibody was non-reactive. There is no laboratory evidence of HCV infection. In most cases, no further action is required. However, if recent HCV exposure is suspected, a test for HCV RNA (test code 64683) is suggested. For additional information please refer to http://education.[employer]/faq/CYA72v7 (This link is being provided for informational/ educational purposes only.) Blood Blood / Unknown 09/20/2022 8 :37 AM EST 09/20/2022 8:38 AM EST [facility] - BLOOD DRAW Edited Result - Final [employer] [address] [address], [address] ([address]) [place] [address] * HIV 1/2 AG & AB W/RFLX (4TH GEN) (09/20/2022 8:37 AM EST) HIV AG/AB, 4TH GEN NON-REAC TIVE NON-REAC TIVE [facility] Comment: HIV-1 antigen and HIV-1/HIV-2 antibodies were not detected. There is no laboratory evidence of HIV infection. PLEASE NOTE: This information has been disclosed to you from records whose confidentiality may be protected by state law. If your state requires such protection, then the state law prohibits you from making any further disclosure of the information without the specific written consent of the person to whom it pertains, or as otherwise permitted by law. A general authorization for the release of medical or other information is NOT sufficient for this purpose. For additional information please refer to http://education.[employer]/faq/KWW251 (This link is being provided for informational/ educational purposes only.) The performance of this assay has not been clinically validated in patients less than 2 years old. Blood Blood / Unknown 09/20/2022 8 :37 AM EST 09/20/2022 8:38 AM EST us [facility] - BLOOD DRAW Final Result Performing Organization Address [facility] Co de Phone Number [facility] [address] [address], [employer] [address] ([address] [address] * HGBA1C W/MPG (09/20/2022 8:37 AM EST) HEMOGLOBIN A1C 5.0 <5.7 % of total Hgb [facility] Comment: For the purpose of screening for the presence of diabetes: <5.7% Consistent with the absence of diabetes 5.7-6.4% Consistent with increased risk for diabetes (prediabetes) > or =6.5% Consistent with diabetes This assay result is consistent with a decreased risk of diabetes. Currently, no consensus exists regarding use of hemoglobin A1c for diagnosis of diabetes in children. According to [place] Diabetes Association (ADA) guidelines, hemoglobin A1c <7.0% represents optimal control in non- diabetic patients. Different metrics may apply to specific patient populations. Standards of Medical Care in Diabetes(ADA). MEAN PLASMA GLUCOSE 101 mg/dL (calc) [facility] Blood Blood / Unknown 09/20/2022 8 :37 AM EST 09/20/2022 8:38 AM EST us [facility] - BLOOD DRAW Edited Result - Final Performing Organization Address City/[facility]/ZIP Co de Phone Number [facility] [address] [address], [employer] [address] [facility] ([address]) [place] [address] * (ABNORMAL) LIPID PANEL (09/20/2022 8:37 AM EST) CHOLESTEROL, TOTAL 224(H) <200 mg/dL [facility] [facility] HDL CHOLESTEROL 40 > OR = 40 mg/dL [facility] TRIGLYCERIDES 173(H) <150 mg/dL [facility] LDL-CHOLESTEROL 153(H) 99 mg/dL (calc) [facility] Comment: Reference range: <100 Desirable range <100 mg/dL for primary prevention; <70 mg/dL for patients with CHD or diabetic patients with > or = 2 CHD risk factors. LDL-C is now calculated using the Bernard calculation, which is a validated novel method providing better accuracy than the Friedewald equation in the estimation of LDL-C. Braxton RAYO et al. ARUNA. 2013;310(19): 6887-2401 (http://education.[employer]/faq/XDR741) CHOL/HDLC RATIO 5.6(H) <5.0 (calc) [facility] NON-HDL CHOLESTEROL 184(H) <130 mg/dL (calc) [facility] Comment: For patients with diabetes plus 1 major ASCVD risk factor, treating to a non-HDL-C goal of <100 mg/dL (LDL-C of <70 mg/dL) is considered a therapeutic option. Blood Blood / Unknown 09/20/2022 8 :37 AM EST 09/20/2022 8:38 AM EST [facility] - BLOOD DRAW Final Result [employer] [address] [address], [employer] [address] [facility] [address]) [place] [address] from Last 3 Months or Most Recently Relevant to Health Maintenance [facility] [place] [address] [facility] [employer] DENTAL [id number] [address] [place] [address] Care Teams Logging Engineer Relationship Specialty Start Date End Date Kip Malcolm PA [address] [place] [address] PCP - General FAMILY MEDICINELACEY 01/31/22
--- OUTSIDE RECORDS SUMMARY | 2025-06-02 18:42 | XMS_ITS | Clinical Summary ---
Author Organization [employer] Address [address] [place] [address] Care Team Providers Care Plastics Scientist Name Role Phone Kin Kendall MD Primary Care Prov ider Allergies No known active allergies Medications multivitamin with minerals (Centrum) 9-200 mg-mcg tablet split tablet Take 1 tablet by mouth Once per day. 4 Active Ventolin HFA 108 (90 Base) MCG/ACT inhaler Inhale 1 puff every 6 (six) hours if needed for shortness of breath. 5 Active amphetamine-dex troamphetamine (Adderall) 20 MG tablet Take 1 tablet by mouth 2 times daily. Active clonazePAM (KlonoPIN) 2 MG tablet Take 2 mg by mouth if needed in the morning and at bedtime for anxiety. 5 Active dicyclomine (Bentyl) 10 MG capsule Take 10 mg by mouth 3 times daily. 5 Active lisinopril 10 MG tablet Take 10 mg by mouth Once per day. Active traZODone (Desyrel) 100 MG tablet Take 100 mg by mouth at bedtime. Active ziprasidone (Geodon) 60 MG capsule Take 1 capsule by mouth 2 times daily. 5 Active polyethylene glycol, PEG, 3350 (Miralax) 17 g packet Take 17 g by mouth Once per day. 5 Active Active Problems Problem Noted Date Diagnosed Date Encounter for medical examination to establish c are 12/31/2024 Assessment & Plan (12/31/2024 10:14 AM EDT): Last pcp visit 8 months ER: - Hospitalization: psych on November 2023 Pmhx: bipolar, adhd, ptsd, htn, sleep apnea Pshx: - All: - Meds: as above Primary hypertension 12/31/2024 Assessment & Plan (12/31/2024 10:17 AM EDT): On lisinopril, keep bp log, encouraged to keep a low sodium diet and exercise as tolerated Bipolar affective disorder in remission 01/01/20 25 Attention deficit hyperactivity disorder (ADHD) 12/31/2024 Assessment & Plan (12/31/2024 10:17 AM EDT): Followed by psych, no changes will be made Family History Medical History Relation Name Comments Alcohol abuse Father Multiple sclerosis Mother Cancer Neg Hx Relation Name Status Comments Father Mother Social History Tobacco Use Types Packs/Day Years Used Date Smoking Tobacco: Every Day Cigarettes 1.5 12.7 Started: 2012 Smokeless Tobacco: Never Tobacco Cessation:Ready to Q uit: Not Asked; Counseling Given: Not Answered Alcohol Use Standard Drinks/Week Comments Not Currently 0 (1 standard drink = 0.6 oz pur e alcohol) Depression Answer Date Recorded Patient Health Questionnaire-9 Score 0 12/31/2024 Patient Health Questionnaire-9 Score 0 12/31/2024 Last PHQ-9: Questionnaire Data Not on file 0 12/31/2024 Housing Stability Answer Date Recorded What is your housing situation today? I have rafaela white 12/31/[address] you li ve. Do you have problems with any of the following? None of the above 12/31/2024 Food Insecurity Answer Date Recorded Within the past 12 months, y ou worried that your food would run out before you got money to buy more: Never True 12/31/2024 Within the past 12 months,th e food you bought just didn't last and you didn't have enough money to get more: Never True 11/2024 Transportation Answer Date Recorded In the past 12 months, has l ack of transportation kept you from medical appts, meetings, work or from getting things needed for daily living? No 12/31/2024 Utilities Answer Date Recorded In the past 12 months, has t he electric, gas, oil or water company threatened to shut off services in your home? No 12/31/2024 Depression Answer Date Recorded Patient Health Questionnaire-2 Score 0 12/31/2024 Internet Access Answer Date Recorded Internet Access Q1 Yes 12/31/2024 Internet Access Q2 Not on file 12/31/2024 Sex and Gender Information Value Date Recorded Sex Assigned at Male 07/31/2022 10:27 AM EDT Legal Sex Male 10:27 AM EDT Gender Identity Male 12/31/2024 8:08 AM EDT Sexual Orientation Straight 12/31/2024 8: 08 AM EDT Plan of Treatment Health Maintenance Due Date Last Done Comments Lipid Panel 1988 Disability Screening 1988 Family Planning (PISQ) 12/21/2003 HPV Vaccines (1 - Male 3-dose series) 12/21/2003 Hepatitis C Screening 2006 Pneumococcal Vaccine: Pediatrics (0 to 5 Years) and At-Risk Patients (6 to 49) Years (1 of 2 - PCV) 12/21/2007 COVID-19 Vaccine ( season) 2024 08/15/2022, 02/15/2021, 01/25/2021 Influenza Vaccine (#1) 2025 , 09/04/2023, 10/10/2022, Additional history exists Alcohol/Substance Use Screening 12/31/2025 12/31/2024 Depression Screening 12/31/2025 12/31/2024, 01/01/20 SDOH Screening 12/31/2025 12/31/2024 Tobacco Screening 12/31/2025 12/31/2024 DTaP/Tdap/Td Vaccines (3 - Td or Tdap) 05/24/2026 05/24/2016, 09/16/2009 Zoster Vaccines (1 of 2) 2038 RSV Patients and Patients Aged 60 years or older (1 - 1-dose 75+ series) 12/21/2063 Hepatitis B Vaccines Completed 07/19/2012, 01/10/2012, 11/22/2011, Additional history exists HIV Screening Completed 09/20/2022, 09/20/2022 HIB Vaccines Aged Out No longer eligi ble based on patient's age to complete this topic Hepatitis A Vaccines Aged Out No long er eligible based on patient's age to complete this topic IPV Vaccines Aged Out No longer eligi ble based on patient's age to complete this topic Meningococcal B Vaccine Aged Out No l onger eligible based on patient's age to complete this topic Meningococcal Vaccine Aged Out No juliano juwan eligible based on patient's age to complete this topic RSV under 20 months Aged Out No longe r eligible based on patient's age to complete this topic Rotavirus Vaccines Aged Out No longer eligible based on patient's age to complete this topic Insurance [employer] MEDICARE REPLACEMENT Care Teams Plastics Scientist Relationship Specialty Start Date End Date Kin Kendall MD [address] [place] [address] PCP - General Internal Medicine 12/31/24
--- NOTE | 2025-06-02 21:15 | PC.NURSE ---
Report received from Jazzy WINTERS. Per CARE team, plan for Inpatient bedsearch at this time.
--- NOTE | 2025-06-03 01:44 | PC.NURSE ---
Pt resting with eyes closed, respirations even and unlabored. No acute distress noted.
--- NOTE | 2025-06-03 06:44 | ECG_ITS ---
Test Reason : MED CLEARANCE Blood Pressure : */* mmHG Vent. Rate : 80 BPM Atrial Rate : 80 BPM P-R Int : 164 ms QRS Dur : 82 ms QT Int : 368 ms P-R-T Axes : 51 19 51 degrees QTcB Int : 424 ms Normal sinus rhythm Normal ECG When compared with ECG of 06-May-2025 04:10, No significant change was found Referred By: Markel Coulter Electronically Signed By: Miles Waters
[2025-06-03 06:46] VITALS: BP 121/73; PULSE 74; RESP 18; TEMP 36.9; O2SAT 94
[2025-06-03 08:46] VITALS: BP 121/73
--- NOTE | 2025-06-03 10:08 | PHA.MEDREC ---
Pharmacy Consult ? Medication Reconciliation Pharmacy has reviewed the medication reconciliation completed by nursing. Zepbound is on Sunday, and pt is not longer on Adderall for trazodone.
[2025-06-03 14:00] VITALS: BP 118/72; PULSE 75; RESP 16; O2SAT 97
[2025-06-03 19:00] VITALS: BP 115/71; PULSE 62; RESP 18; TEMP 36.4; O2SAT 97
[2025-06-03 19:10] VITALS: BMI 41.6
--- NOTE | 2025-06-03 19:16 | PC.NURSE ---
Carl admitted to M3 from [facility] at 1900. Skin check completed and unremarkable. Pt denies SI/HI/AVH currently. Pt denies current weight loss or gain. Will pass admission to oncoming nurse.
--- NOTE | 2025-06-03 23:09 | PC.ADMIT ---
Carl was admitted from the [facility] on a CV for the treatment of depressive d/o and anxiety d/o. upon arrival to the unit the patient is alert and oriented X's 4, pleasant and cooperative. Carl signed a 3 day notice upon arrival which will on 06/08. Carl denies all psych symptoms except anxiety. The last time I was here I was really paranoid and I was hearing voices then but not now. this time I'm just really anxious and frustrated. My mother tried to get me put into a 90 day program for smoking a lot of pot. The bus driver said that you can't section someone just for smoking pot. he gave me the choice to come here to be evaluated, so I did. I'm not a violent person. I don't want to hurt myself or anyone else. I'm not hallucinating and I don't really have any depression it's really just the anxiety from the situation. all admission documents completed and signed.
[2025-06-04 08:22] VITALS: BP 104/71; PULSE 81; RESP 16; TEMP 36.8; O2SAT 95
[2025-06-04 08:22] LABS: Hemoglobin A1C 135.5802 umol/L; Total Hemoglobin (HGBA1C) 3872.1097 umol/L
[2025-06-04 08:35] LABS: Alanine Aminotransferase 36 U/L (0-40); Albumin Level 4.1 g/dL (3.5-5.0); Alkaline Phosphatase 69 U/L (39-117); Anion Gap 14 (12-20); Aspartate Amino Transferase 32 U/L (5-37); Blood Urea Nitrogen 9 mg/dL (9-16); Calcium 9.3 mg/dL (8.4-10.2); Carbon Dioxide 29 mmol/L (22-29); Chloride 103 mmol/L (96-108); Cholesterol 233 mg/dL (<200); Creatinine Clr Calc Pharmacy 148.8; Estimated Glomerular Filt Rate > 60; HDL Cholesterol 24 mg/dL (>40); Potassium 4.5 mmol/L (3.3-5.1); Sodium 141 mmol/L (135-145); Total Protein 7.8 g/dL (6.5-8.0); Triglycerides 172 mg/dL (<150)
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
[2025-06-04 19:35] VITALS: BP 92/56; PULSE 64; RESP 17; TEMP 37; O2SAT 95
[2025-06-05 07:20] VITALS: BP 93/43; PULSE 70; RESP 12; TEMP 36.2; O2SAT 95
[2025-06-05 08:35] VITALS: BP 118/82
--- NOTE | 2025-06-05 08:52 | HO.PSYCHPN ---
Subjective Subjective Date of Service: 06/05/25 Reason For Visit: Crisis Subjective Notes: 3 Day Interim History: 3 day notice up on 06/08/25. Laying in bed. keeping to self. patient reports feeling fine ; pt stated, I don't feel like going to groups because I've been to all of them. I'm just going to sleep until I can leave on my three day . denies SI/HI/VH/AH. Encouraged to get out of bed and socialize. continue tx plan. Medication Compliance: Yes Side effects from medications: No Attending Groups: No Mental Status Exam Mental Status Exam Narrative: Pt is alert and oriented; behavior is cooperative and calm; dressed in casual attire; mood is described as fine ; eye contact appropriate; Speech is normal rate, volume and not pressured; thought process is organized; Thought content is on discharge; denies SI/HI/VH/AH. Diagnostics Vital Signs (24Hr): Vital Signs - 24 hr 06/04/25 19:35 06/05/25 07:20 06/05/25 08:35 Temperature 98.6 F 97.2 F Pulse Rate 64 70 Respiratory Rate 17 12 Blood Pressure 92/56 L 93/43 L 118/82 Pulse Oximetry 95 95 Oxygen Delivery Method Room Air Room Air BMI result Body Mass Index 41.6 Labs 06/02/25 18:01 06/04/25 08:04 Labs: Laboratory Results - last 48 hr 06/04/25 08:04 Sodium 141 Potassium 4.5 Chloride 103 Carbon Dioxide 29 Anion Gap 14 BUN 9 Creatinine 1.02 Estim Creat Clear Calc 148.8 Estimated GFR > 60 Random Glucose 96 Estimat Average Glucose 108 Hemoglobin A1c % 5.4 Calcium 9.3 Total Bilirubin 0.4 AST 32 ALT 36 Alkaline Phosphatase 69 Total Protein 7.8 Albumin 4.1 Triglycerides 172 H Cholesterol 233 H LDL Cholesterol, Calc 175 H HDL Cholesterol 24 L Medications Medications Current Medications Acetaminophen (Acetaminophen 325 Mg Tablet) 650 mg PO Q6H PRN PRN Reason: Headache/Pain, Scale 1-10 Al Hydroxide/Mg Hydroxide (Magnesium Hydrox/Alum Hydrox 30 Ml Oral.Susp) 30 ml PO Q6H PRN PRN Reason: Heartburn/Nausea Albuterol Sulfate (Albuterol Sulfate 90 Mcg 8 Gm Inhaler) 2 puff INHALE Q4H PRN PRN Reason: Wheezing Alprazolam (Alprazolam 0.5 Mg Tablet) 1 mg PO TID PRN PRN Reason: Anxiety Last Admin: 06/05/25 08:27 Dose: 1 mg Divalproex Sodium (Divalproex Sodium Er 500 Mg Tab.Er.24h) 1,500 mg PO BEDTIME [facility] Last Admin: 06/04/25 21:25 Dose: 1,500 mg Escitalopram Oxalate (Escitalopram Oxalate 20 Mg Tablet) 20 mg PO DAILY [facility] Last Admin: 06/05/25 08:28 Dose: 20 mg Gabapentin (Gabapentin 100 Mg Capsule) 300 mg PO TID [facility] Last Admin: 06/05/25 08:29 Dose: 100 mg Hydroxyzine HCl (Hydroxyzine Hcl 50 Mg Tablet) 50 mg PO Q6H PRN PRN Reason: anxiety Ipratropium [place] (Ipratropium [place] Jamir 0.03 % 30 Ml [place]) 1 spray NOSTRIL-B BID PRN PRN Reason: Congestion Lisinopril (Lisinopril 10 Mg Tablet) 10 mg PO DAILY [facility]; Protocol Last Admin: 06/05/25 08:35 Dose: 10 mg Lurasidone HCl (Lurasidone Hcl 80 Mg Tablet) 80 mg PO DAILY@1700 [facility] Last Admin: 06/04/25 17:04 Dose: 80 mg Magnesium Hydroxide (Milk Of Magnesia 30 Ml Oral.Susp) 30 ml PO DAILY PRN PRN Reason: Constipation Melatonin (Melatonin 3 Mg Tablet) 9 mg PO BEDTIME [facility] Last Admin: 06/04/25 21:25 Dose: 9 mg Multivitamins/Vitamin C (Multivitamin Tablet) 1 tab PO DAILY [facility] Last Admin: 06/05/25 08:28 Dose: 1 tab Non-Formulary Medication (Tirzepatide (Weight Loss) [Zepbound]) 7.5 mg SUBCUT Q7D [facility] Omeprazole (Omeprazole 40 Mg Capsule.Dr) 40 mg PO DAILY PRN PRN Reason: Acid Reflux Polyethylene Glycol (Polyethylene Glycol 3350 17 Gm Powd.Pack) 17 gm PO DAILY PRN PRN Reason: Constipation Thiamine HCl (Thiamine Hcl 100 Mg Tablet) 100 mg PO DAILY [facility] Last Admin: 06/05/25 08:28 Dose: 100 mg Trazodone HCl (Trazodone Hcl 50 Mg Tablet) 50 mg PO BEDTIME MRX1 PRN PRN Reason: Insomnia Allergies Allergies Allergy/AdvReac Type Severity Reaction Status Date / Time No Known Allergies (No Known Allergy Verified 06/02/25 17:05 Allergies*) Assessment & Plan Assessment & Plan (1) Bipolar disorder: Status: Acute Code(s): F31.9 - Bipolar disorder, unspecified (2) PTSD (post-traumatic stress disorder): Status: Acute Code(s): F43.10 - Post-traumatic stress disorder, unspecified (3) Opioid use disorder: Status: Inactive Code(s): F11.90 - Opioid use, unspecified, uncomplicated (4) Benzodiazepine abuse: Status: Resolved Code(s): F13.10 - Sedative, hypnotic or anxiolytic abuse, uncomplicated Plan Patient is a 34 year old male with hx of Bipolar d/o, PTSD, opioid use d/o, and benzodiazepine abuse, who presented to ER via EMS on a section 12 from [facility] after being declined for a section 35 filed by his mother and was sent to ER for crisis evaluation. Plan: day notice 15 minute safety checks Continue home medications Obtain collateral Encourage groups Referral to outpatient psychiatric providers Discharge planning 06/05: 3 day notice up on 06/08/25. Laying in bed. keeping to self. patient reports feeling fine ; pt stated, I don't feel like going to groups because I've been to all of them. I'm just going to sleep until I can leave on my three day . denies SI/HI/VH/AH. Encouraged to get out of bed and socialize. continue tx plan. Patient educated on: diagnosis, medication risk/benefits and therapeutic strategies Reason for continued inpatient stay Substantial Risk for: med/psych decompensation Time Spent With Patient Time: Total time managing care of this patient today _20___ minutes.
[2025-06-05 12:49] LABS: Ammonia 39 umol/L (13-55)
[2025-06-05 12:57] LABS: Alanine Aminotransferase 42 U/L (0-40); Albumin Level 4.5 g/dL (3.5-5.0); Alkaline Phosphatase 72 U/L (39-117); Aspartate Amino Transferase 31 U/L (5-37); Total Protein 8.4 g/dL (6.5-8.0)
[2025-06-05] MEDS: TIRZEPATIDE 10 MG 10 EACH SUBCUT (16:33)
[2025-06-05 20:00] VITALS: BP 116/61; PULSE 73; RESP 16; TEMP 36.6; O2SAT 100
--- NOTE | 2025-06-06 07:45 | HO.PSYCHPN ---
Subjective Subjective Date of Service: 06/06/25 Reason For Visit: Crisis Subjective Notes: 3 Day Interim History: 3 day notice up on 06/08/25. Overall reports things are going okay and that he is simply spending time in his room and sleeping until his 3 day notice expires and he can discharge. Denies feeling depressed suicidal or agitated . Adherent with medications. Medication Compliance: Yes Side effects from medications: No Attending Groups: No Review of Systems Acute medical concerns: No Review of Systems Review of Systems Nothing of note Mental Status Exam Mental Status Exam Narrative: Pt is alert and oriented; behavior is cooperative and calm; dressed in casual attire; mood is described as good ; eye contact appropriate; Speech is normal rate, volume and not pressured; thought process is organized; Thought content is on discharge; denies SI/HI/VH/AH. Diagnostics Vital Signs (24Hr): Vital Signs - 24 hr 06/05/25 08:35 06/05/25 20:00 Temperature 97.9 F Pulse Rate 73 Respiratory Rate 16 Blood Pressure 118/82 116/61 Pulse Oximetry 100 Oxygen Delivery Method Room Air BMI result Body Mass Index 41.6 Labs 06/02/25 18:01 06/04/25 08:04 Labs: Laboratory Results - last 48 hr 06/04/25 06/05/25 08:04 12:27 Sodium 141 Potassium 4.5 Chloride 103 Carbon Dioxide 29 Anion Gap 14 BUN 9 Creatinine 1.02 Estim Creat Clear Calc 148.8 Estimated GFR > 60 Random Glucose 96 Estimat Average Glucose 108 Hemoglobin A1c % 5.4 Calcium 9.3 Total Bilirubin 0.4 0.4 Direct Bilirubin 0.1 AST 32 31 ALT 36 42 H Alkaline Phosphatase 69 72 Ammonia 39 Total Protein 7.8 8.4 H Albumin 4.1 4.5 Triglycerides 172 H Cholesterol 233 H LDL Cholesterol, Calc 175 H HDL Cholesterol 24 L Valproic Acid 42.0 L Medications Medications Current Medications Acetaminophen (Acetaminophen 325 Mg Tablet) 650 mg PO Q6H PRN PRN Reason: Headache/Pain, Scale 1-10 Al Hydroxide/Mg Hydroxide (Magnesium Hydrox/Alum Hydrox 30 Ml Oral.Susp) 30 ml PO Q6H PRN PRN Reason: Heartburn/Nausea Albuterol Sulfate (Albuterol Sulfate 90 Mcg 8 Gm Inhaler) 2 puff INHALE Q4H PRN PRN Reason: Wheezing Alprazolam (Alprazolam 0.5 Mg Tablet) 1 mg PO TID PRN PRN Reason: Anxiety Last Admin: 06/05/25 21:10 Dose: 1 mg Divalproex Sodium (Divalproex Sodium Er 500 Mg Tab.Er.24h) 1,500 mg PO BEDTIME [facility] Last Admin: 06/05/25 21:09 Dose: 1,500 mg Escitalopram Oxalate (Escitalopram Oxalate 20 Mg Tablet) 20 mg PO DAILY [facility] Last Admin: 06/05/25 08:28 Dose: 20 mg Gabapentin (Gabapentin 100 Mg Capsule) 100 mg PO TID [facility] Last Admin: 06/05/25 21:09 Dose: 100 mg Hydroxyzine HCl (Hydroxyzine Hcl 50 Mg Tablet) 50 mg PO Q6H PRN PRN Reason: anxiety Last Admin: 06/05/25 16:08 Dose: 50 mg Ipratropium [place] (Ipratropium [place] Jamir 0.03 % 30 Ml [place]) 1 spray NOSTRIL-B BID PRN PRN Reason: Congestion Lisinopril (Lisinopril 10 Mg Tablet) 10 mg PO DAILY [facility]; Protocol Last Admin: 06/05/25 08:35 Dose: 10 mg Lurasidone HCl (Lurasidone Hcl 80 Mg Tablet) 80 mg PO DAILY@1700 [facility] Last Admin: 06/05/25 17:35 Dose: 80 mg Magnesium Hydroxide (Milk Of Magnesia 30 Ml Oral.Susp) 30 ml PO DAILY PRN PRN Reason: Constipation Melatonin (Melatonin 3 Mg Tablet) 9 mg PO BEDTIME [facility] Last Admin: 06/05/25 21:09 Dose: 9 mg Multivitamins/Vitamin C (Multivitamin Tablet) 1 tab PO DAILY [facility] Last Admin: 06/05/25 08:28 Dose: 1 tab Pt Own(Tirzepatide ( Weight Loss) [ Zepbound] 10 Mg) 10 mg SUBCUT Q7D [facility] Last Admin: 06/05/25 16:33 Dose: 10 mg Omeprazole (Omeprazole 40 Mg Capsule.Dr) 40 mg PO DAILY PRN PRN Reason: Acid Reflux Polyethylene Glycol (Polyethylene Glycol 3350 17 Gm Powd.Pack) 17 gm PO DAILY PRN PRN Reason: Constipation Thiamine HCl (Thiamine Hcl 100 Mg Tablet) 100 mg PO DAILY [facility] Last Admin: 06/05/25 08:28 Dose: 100 mg Trazodone HCl (Trazodone Hcl 50 Mg Tablet) 50 mg PO BEDTIME MRX1 PRN PRN Reason: Insomnia Allergies Allergies Allergy/AdvReac Type Severity Reaction Status Date / Time No Known Allergies (No Known Allergy Verified 06/02/25 17:05 Allergies*) Assessment & Plan Assessment & Plan (1) Bipolar disorder: Status: Acute Code(s): F31.9 - Bipolar disorder, unspecified (2) PTSD (post-traumatic stress disorder): Status: Acute Code(s): F43.10 - Post-traumatic stress disorder, unspecified (3) Opioid use disorder: Status: Inactive Code(s): F11.90 - Opioid use, unspecified, uncomplicated (4) Benzodiazepine abuse: Status: Resolved Code(s): F13.10 - Sedative, hypnotic or anxiolytic abuse, uncomplicated Plan Patient is a 34 year old male with hx of Bipolar d/o, PTSD, opioid use d/o, and benzodiazepine abuse, who presented to ER via EMS on a section 12 from [facility] after being declined for a section 35 filed by his mother and was sent to ER for crisis evaluation. Plan: /3 day notice 15 minute safety checks Continue home medications Obtain collateral Encourage groups Referral to outpatient psychiatric providers Discharge planning 06/05: 3 day notice up on 06/08/25. Laying in bed. keeping to self. patient reports feeling fine ; pt stated, I don't feel like going to groups because I've been to all of them. I'm just going to sleep until I can leave on my three day . denies SI/HI/VH/AH. Encouraged to get out of bed and socialize. continue tx plan. 06/06/2025: No changes in current management plan. Three-day notice expires 06/08/2025 Reason for continued inpatient stay Substantial Risk for: rapid decompensation Time Spent With Patient Time: Total time managing care of this patient today ____ minutes.
[2025-06-06 08:00] VITALS: BP 131/66; PULSE 80; RESP 16; TEMP 36.4; O2SAT 96
[2025-06-06 08:50] VITALS: BP 131/66
[2025-06-06 20:00] VITALS: BP 116/75; PULSE 88; RESP 16; TEMP 36.8; O2SAT 97
[2025-06-07] MEDS: Magnesium Hydrox/Alum Hydrox 30 ML ORAL.SUSP PO (00:56)
[2025-06-07 08:00] VITALS: BP 122/74; PULSE 93; RESP 14; TEMP 36.7; O2SAT 98
--- NOTE | 2025-06-07 11:32 | P.PNPSI_ITS ---
Subjective Subjective Date of Service: 06/07/25 Reason For Visit: Crisis Interim History: 3 day notice up on 06/08/25- reports things are going okay and that he is simply spending time in his room and sleeping until his 3 day notice expires and he can discharge. Denies feeling depressed suicidal or agitated . Adherent with medications. did ask for a nicotine patch Medication Compliance: Yes Side effects from medications: No Attending Groups: No Review of Systems Acute medical concerns: No Review of Systems Review of Systems Nothing of note Mental Status Exam Mental Status Exam Narrative: Pt is alert and oriented; behavior is cooperative and calm; dressed in casual attire; mood is described as fine ; eye contact appropriate; Speech is normal rate, volume and not pressured; thought process is organized; Thought content is on discharge; denies SI/HI/VH/AH. Diagnostics Vital Signs (24Hr): Vital Signs - 24 hr 06/06/25 20:00 06/07/25 08:00 Temperature 98.2 F 98.1 F Pulse Rate 88 93 Respiratory Rate 16 14 Blood Pressure 116/75 122/74 Pulse Oximetry 97 98 Oxygen Delivery Method Room Air Room Air BMI result Body Mass Index 41.6 Labs 06/02/25 18:01 06/04/25 08:04 Labs: Laboratory Results - last 48 hr 06/05/25 12:27 Total Bilirubin 0.4 Direct Bilirubin 0.1 AST 31 ALT 42 H Alkaline Phosphatase 72 Ammonia 39 Total Protein 8.4 H Albumin 4.5 Valproic Acid 42.0 L Medications Medications Current Medications Acetaminophen (Acetaminophen 325 Mg Tablet) 650 mg PO Q6H PRN PRN Reason: Headache/Pain, Scale 1-10 Al Hydroxide/Mg Hydroxide (Magnesium Hydrox/Alum Hydrox 30 Ml Oral.Susp) 30 ml PO Q6H PRN PRN Reason: Heartburn/Nausea Last Admin: 06/07/25 00:56 Dose: 30 ml Albuterol Sulfate (Albuterol Sulfate 90 Mcg 8 Gm Inhaler) 2 puff INHALE Q4H PRN PRN Reason: Wheezing Alprazolam (Alprazolam 0.5 Mg Tablet) 1 mg PO TID PRN PRN Reason: Anxiety Last Admin: 06/07/25 08:45 Dose: 1 mg Divalproex Sodium (Divalproex Sodium Er 500 Mg Tab.Er.24h) 1,500 mg PO BEDTIME [facility] Last Admin: 06/06/25 20:07 Dose: 1,500 mg Escitalopram Oxalate (Escitalopram Oxalate 20 Mg Tablet) 20 mg PO DAILY [facility] Last Admin: 06/07/25 08:42 Dose: 20 mg Gabapentin (Gabapentin 100 Mg Capsule) 100 mg PO TID [facility] Last Admin: 06/07/25 08:42 Dose: 100 mg Hydroxyzine HCl (Hydroxyzine Hcl 50 Mg Tablet) 50 mg PO Q6H PRN PRN Reason: anxiety Last Admin: 06/06/25 20:07 Dose: 50 mg Ipratropium [place] (Ipratropium [place] Jamir 0.03 % 30 Ml [place]) 1 spray NOSTRIL-B BID PRN PRN Reason: Congestion Lisinopril (Lisinopril 10 Mg Tablet) 10 mg PO DAILY [facility]; Protocol Last Admin: 06/07/25 08:42 Dose: 10 mg Lurasidone HCl (Lurasidone Hcl 80 Mg Tablet) 80 mg PO DAILY@1700 [facility] Last Admin: 06/06/25 17:05 Dose: 80 mg Magnesium Hydroxide (Milk Of Magnesia 30 Ml Oral.Susp) 30 ml PO DAILY PRN PRN Reason: Constipation Melatonin (Melatonin 3 Mg Tablet) 9 mg PO BEDTIME [facility] Last Admin: 06/06/25 20:07 Dose: 9 mg Multivitamins/Vitamin C (Multivitamin Tablet) 1 tab PO DAILY [facility] Last Admin: 06/07/25 08:43 Dose: 1 tab Pt Own(Tirzepatide ( Weight Loss) [ Zepbound] 10 Mg) 10 mg SUBCUT Q7D [facility] Last Admin: 06/05/25 16:33 Dose: 10 mg Omeprazole (Omeprazole 40 Mg Capsule.Dr) 40 mg PO DAILY PRN PRN Reason: Acid Reflux Polyethylene Glycol (Polyethylene Glycol 3350 17 Gm Powd.Pack) 17 gm PO DAILY PRN PRN Reason: Constipation Thiamine HCl (Thiamine Hcl 100 Mg Tablet) 100 mg PO DAILY [facility] Last Admin: 06/07/25 08:42 Dose: 100 mg Trazodone HCl (Trazodone Hcl 50 Mg Tablet) 50 mg PO BEDTIME MRX1 PRN PRN Reason: Insomnia Allergies Allergies Allergy/AdvReac Type Severity Reaction Status Date / Time No Known Allergies (No Known Allergy Verified 06/02/25 17:05 Allergies*) Assessment & Plan Assessment & Plan (1) Bipolar disorder: Status: Acute Code(s): F31.9 - Bipolar disorder, unspecified (2) PTSD (post-traumatic stress disorder): Status: Acute Code(s): F43.10 - Post-traumatic stress disorder, unspecified (3) Opioid use disorder: Status: Inactive Code(s): F11.90 - Opioid use, unspecified, uncomplicated (4) Benzodiazepine abuse: Status: Resolved Code(s): F13.10 - Sedative, hypnotic or anxiolytic abuse, uncomplicated Plan Patient is a 34 year old male with hx of Bipolar d/o, PTSD, opioid use d/o, and benzodiazepine abuse, who presented to ER via EMS on a section 12 from [facility] after being declined for a section 35 filed by his mother and was sent to ER for crisis evaluation. Plan: / day notice 15 minute safety checks Continue home medications Obtain collateral Encourage groups Referral to outpatient psychiatric providers Discharge planning 06/05: 3 day notice up on 06/08/25. Laying in bed. keeping to self. patient reports feeling fine ; pt stated, I don't feel like going to groups because I've been to all of them. I'm just going to sleep until I can leave on my three day . denies SI/HI/VH/AH. Encouraged to get out of bed and socialize. continue tx plan. 06/06/2025: No changes in current management plan. Three-day notice expires 06/08/2025 06/07/2025: No changes. Added nicotine patch Reason for continued inpatient stay Substantial Risk for: rapid decompensation Time Spent With Patient Time: Total time managing care of this patient today ____ minutes.
[2025-06-07] MEDS: Nicotine 21 MG PATCH.TD24 TRANSDERMA (13:49)
[2025-06-07 20:40] VITALS: BP 127/93; PULSE 95; RESP 18; TEMP 36.4; O2SAT 98
[2025-06-08 07:40] VITALS: BP 110/67; PULSE 80; RESP 16; TEMP 36.7; O2SAT 97
[2025-06-08 08:21] VITALS: BP 110/67
--- NOTE | 2025-06-08 09:56 | P.DS_ITS ---
DS: Providers Provider Date of Service: 06/08/25 Date of admission: 06/03/25 16:15 Date of discharge: 06/08/25 Primary care physician: LACEY Santiago Attending physician on admission: Fabi Rodrigues Attending physician on discharge: Ekta Tapia DS: Diagnosis Discharge Diagnosis (1) Bipolar disorder: Status: Acute (2) PTSD (post-traumatic stress disorder): Status: Acute (3) Opioid use disorder: Status: Inactive (4) Benzodiazepine abuse: Status: Resolved DS: Medications Discharge Medications Home Medications: Home Medications ?Medication ?Instructions ?Recorded ?Confirmed albuterol sulfate 90 mcg/actuation 2 puff inhalation Q 4H PRN wheezing 05/06/25 06/02/25 aerosol inhaler ipratropium bromide 21 mcg (0.03 1 spray intranasal BI D PRN 05/06/25 06/02/25 %) nasal spray congestion nicotine 21 mg/24 hr daily 1 patch topical DAILY 05/0606/02/25 transdermal patch Previous Rx's ?Medication ?Instructions ?Recorded polyethylene glycol 3350 17 gram 17 g PO DAILY PRN Con stipation #14 05/13/25 oral powder packet ea tirzepatide (weight loss) 7.5 7.5 mg (0.5 mL) subcut Q WEEK 05/13/25 mg/0.5 mL subcutaneous pen weight management #2 mL injector (Zepbound) alprazolam 1 mg tablet 1 mg PO TID PRN Anxiety #30 tabs 06/08/25 divalproex 500 mg tablet,extended 1,500 mg (3 x 500 mg ) PO BEDTIME 06/08/25 release 24 hr Mood #90 tabs escitalopram oxalate 20 mg tablet 20 mg PO DAILY Depre ssion #30 tabs 06/08/25 gabapentin 100 mg capsule 100 mg PO TID anxiety #90 ca ps 06/08/25 hydroxyzine HCl 50 mg tablet 50 mg PO BID PRN anxiety #60 tabs 06/08/25 lisinopril 10 mg tablet 10 mg PO DAILY HTN #30 tabs 06/08/25 lurasidone 80 mg tablet (Latuda) 80 mg PO DAILY@1700 M ood #30 tabs 06/08/25 melatonin 3 mg tablet 9 mg (3 x 3 mg) PO BEDTIME 0 06/08/25 insomnia #90 tabs multivitamin 1 tab PO DAILY supplement # 30 tabs 06/08/25 omeprazole 40 mg capsule,delayed 40 mg PO DAILY PRN Ac id Reflux #30 06/08/25 release caps thiamine mononitrate (vit B1) 100 100 mg PO DAILY #30 tabs 06/08/25 mg tablet Mental Status Exam Mental Status Exam Narrative: Patient presents well-groomed, casually dressed. Affect is euthymic with full range. Speech is clear and coherent. Thought process is linear and logical. Thought content is appropriate and relevant. Patient denies suicidal or homicidal ideation intent or plan. No overt psychotic symptoms elicited. Insight is fair. Judgment is fair. Data Data Completed and Pending Completed studies during hospitalization [Text1]: 06/02/25 06/02/25 06/04/25 17:11 18:01 08:04 WBC 9.9 RBC 4.69 Hgb 14.9 Hct 43.0 MCV 91.7 MCH 31.8 MCHC 34.7 RDW 12.6 Plt Count 309 MPV 9.8 Immature Gran % (Auto) 0.4 Neut % (Auto) 69.2 Lymph % (Auto) 21.4 [place] % (Auto) 4.7 Eos % (Auto) 3.9 Baso % (Auto) 0.4 Lymph # (Auto) 2.1 [place] # (Auto) 0.5 Eos # (Auto) 0.4 Baso # (Auto) 0.0 Abs Immat Gran (auto) 0.04 H Absolute Neuts (auto) 6.8 Absolute Nucleated RBC 0.000 Nucleated RBC % (auto) 0.0 Sodium 143 141 Potassium 4.0 4.5 Chloride 104 103 Carbon Dioxide 28 29 Anion Gap 15 14 BUN 12 9 Creatinine 0.94 1.02 Estim Creat Clear Calc 161.4 148.8 Estimated GFR > 60 > 60 Random Glucose 83 96 Estimat Average Glucose 108 Hemoglobin A1c % 5.4 Calcium 9.7 9.3 Total Bilirubin 0.4 0.4 Direct Bilirubin AST 23 32 ALT 29 36 Alkaline Phosphatase 74 69 Ammonia Total Protein 8.1 H 7.8 Albumin 4.3 4.1 Triglycerides 172 H Cholesterol 233 H LDL Cholesterol, Calc 175 H HDL Cholesterol 24 L Urine Color Yellow Urine Appearance Clear Urine pH 7.0 Ur Specific [place] 1.025 Urine Protein Trace Urine Glucose (UA) Negative Urine Ketones Trace Urine Blood Negative Urine Nitrite Negative Ur Leukocyte Esterase Negative Urine RBC 0-2 Urine WBC 0-5 Ur Squamous Epith Cells 0-2 Urine Bacteria None Seen Hyaline Casts 0-2 Urine Opiates Screen Not Detected Ur Buprenorphine Scrn Not Detected Ur Oxycodone Screen Not Detected Urine Methadone Screen Not Detected Urine Fentanyl Screen Not Detected Ur Barbiturates Screen Not Detected Valproic Acid < 12.5 L Ur Phencyclidine Scrn Not Detected Ur Amphetamines Screen Not Detected U Benzodiazepines Scrn POSITIVE H Urine Cocaine Screen Not Detected U Marijuana (THC) Screen POSITIVE H Ethyl Alcohol < 10 06/05/25 12:27 WBC RBC Hgb Hct MCV MCH MCHC RDW Plt Count MPV Immature Gran % (Auto) Neut % (Auto) Lymph % (Auto) [place] % (Auto) Eos % (Auto) Baso % (Auto) Lymph # (Auto) [place] # (Auto) Eos # (Auto) Baso # (Auto) Abs Immat Gran (auto) Absolute Neuts (auto) Absolute Nucleated RBC Nucleated RBC % (auto) Sodium Potassium Chloride Carbon Dioxide Anion Gap BUN Creatinine Estim Creat Clear Calc Estimated GFR Random Glucose Estimat Average Glucose Hemoglobin A1c % Calcium Total Bilirubin 0.4 Direct Bilirubin 0.1 AST 31 ALT 42 H Alkaline Phosphatase 72 Ammonia 39 Total Protein 8.4 H Albumin 4.5 Triglycerides Cholesterol LDL Cholesterol, Calc HDL Cholesterol Urine Color Urine Appearance Urine pH Ur Specific [place] Urine Protein Urine Glucose (UA) Urine Ketones Urine Blood Urine Nitrite Ur Leukocyte Esterase Urine RBC Urine WBC Ur Squamous Epith Cells Urine Bacteria Hyaline Casts Urine Opiates Screen Ur Buprenorphine Scrn Ur Oxycodone Screen Urine Methadone Screen Urine Fentanyl Screen Ur Barbiturates Screen Valproic Acid 42.0 L Ur Phencyclidine Scrn Ur Amphetamines Screen U Benzodiazepines Scrn Urine Cocaine Screen U Marijuana (THC) Screen Ethyl Alcohol DS: Summary Hospital Course Hospital Course: Per admitting provider note: Patient is a 34 year old male with hx of Bipolar d/o, PTSD, opioid use d/o, and benzodiazepine abuse, who presented to ER via EMS on a section [address] [place] [address] after being declined for a section 35 filed by his mother and was sent to ER for crisis evaluation. 06/05: 3 day notice up on 06/08/25. Laying in bed. keeping to self. patient reports feeling fine ; pt stated, I don't feel like going to groups because I've been to all of them. I'm just going to sleep until I can leave on my three day . denies SI/HI/VH/AH. Encouraged to get out of bed and socialize. continue tx plan. 06/06/2025: No changes in current management plan. Three-day notice expires 06/08/2025 06/07/2025: No changes. Added nicotine patch 06/08/25: CV/3 day notice which was on 06/08/25: patient is not imminent risk to himself or others during the past couple of days, and since admitted here on M3. He does not meet the court commitment criteria. He does not want to retract to get further treatment. Therefore patient will discharge back home with family. Patient educate on benzo abuse/overused. Pharmacist from [facility] call, they do not want to dispense benzos-Xanax as so many red flags on overused. Due to risk of potential having seizure withdrawal from benzo from abruptly stopped/not available, This provider tried to send patient home Xanax 1mg with twice a day p.r.n. for 7 day supply only. Patient was on the phone with this provider, and is aware that it is only for 7 days and he has to touch base with the outpatient provider. Time spent discussing smoking cessation with patient: 3 to 10 minutes Status at Discharge Cognitive/behavioral status at discharge: CONDITION ON DISCHARGE: CURRENT STATUS IT RELATES TO ADMISSION CRITERIA: Stable, improved. Improvements in depression, anxiety, and suicidal ideation. Improvements in sleep, energy, and appetite. and no hallucination or paranoia/delusional thought. Functional status at discharge: independent ambulation Overall status at discharge: patient is back to baseline Time Spent with Patient Time attestation: Total time managing care of this patient today ____ minutes. Time spent: Greater than 30 minutes Discharge Plan Discharge Anticipated Discharge Date/Time: 06/08/25 09:49 Patient Disposition: Home, Self-Care Discharge Diagnosis: PTSD, and Bipolar Referrals: Ina Pickett (Psychiatry) [Other] - 06/24/25 10:00 am Therapy [Other] - 1 Week Referral Note: *Please follow up with your therapist at the agency listed above. Eulalia Rush PA [Primary Care Provider, Internal Medicine] - 06/12/25 10:30 am Referral Note: 06-05-25 Your follow up appt has been scheduled for Sunday06-12-25 @ 10:30am Discharge Medications: New gabapentin 100 mg Capsule 100 mg PO TID Qty: 90 0RF alprazolam [Xanax] 1 mg tablet 1 mg PO BID PRN (Reason: severe anxiety ) Qty: 14 0RF Continued nicotine 21 mg/24 hr patch 24 hour 1 patch topical DAILY albuterol sulfate 90 mcg/actuation HFA aerosol inhaler 2 puff INHALATION Q4H PRN (Reason: wheezing) ipratropium bromide 21 mcg (0.03 %) spray,non-aerosol 1 spray intranasal BID PRN (Reason: congestion) polyethylene glycol 3350 17 gram powder in packet 17 g PO DAILY PRN (Reason: Constipation) Qty: 14 0RF Zepbound 7.5 mg/0.5 mL pen injector 7.5 mg subcut QWEEK Qty: 2 0RF Rx Instructions: Mondays multivitamin Tablet 1 tab PO DAILY Qty: 30 0RF melatonin 3 mg Tablet 9 mg PO BEDTIME Qty: 90 0RF omeprazole 40 mg Capsule,Delayed Release(Dr/Ec) 40 mg PO DAILY PRN (Reason: Acid Reflux) Qty: 30 0RF Rx Instructions: Last filled 03/26/25 lisinopril 10 mg tablet 10 mg PO DAILY Qty: 30 0RF divalproex 500 mg Tablet Extended Release 24 Hr 1,500 mg PO BEDTIME Qty: 90 0RF escitalopram oxalate 20 mg Tablet 20 mg PO DAILY Qty: 30 0RF thiamine mononitrate (vit B1) 100 mg Tablet 100 mg PO DAILY Qty: 30 0RF lurasidone [Latuda] 80 mg Tablet 80 mg PO DAILY@1700 Qty: 30 0RF Changed hydroxyzine HCl 50 mg Tablet 50 mg PO BID PRN (Reason: anxiety) Qty: 60 0RF Discontinued gabapentin 100 mg capsule See Rx Instructions .ROUTE .COMPLEX 14 Days Qty: 126 0RF Rx Instructions: Take two caps po tid for 2 days then take three caps po tid alprazolam 1 mg tablet 1 mg PO TID PRN (Reason: Anxiety) Discharge Orders: Discharge Order (Routine); Ordered 06/08/25 Ordered By: Ekta Tapia Diet: Regular diet Activity on Discharge: As tolerated Stand Alone Forms: Patient Portal Discharge page, Community Support Print Language: Wolof Care Plan Goals: Maintain mood and safe behaviors Take medications as prescribed Continue to pursue sobriety Practice coping skills Continue with outpatient providers and reach out to them as needed Health Concerns: Mood stability and behaviors Sobriety Plan of Treatment: Follow up with your PCP, psychiatric provider and other outpatient providers regarding above concerns Take medications as prescribed Assessment: Assessment: Risk assessment at time of discharge: Patient was interviewed prior to discharge and found to be fully oriented and without any SI or HI. Patient has improved insight and judgment and wants to continue treatment. Patient is not in imminent risk of harm to self or others and has a safety plan that includes presenting to the closest ER or calling 911 if feeling unsafe. Patient has been observed closely by nursing and unit staff throughout admission; patient has not engaged in any behaviors that suggest dangerousness to self or others and has demonstrated appropriate behaviors and impulse control Discharge Date/Time: 06/08/25 10:07
--- NOTE | 2025-06-08 10:57 | PC.NURSE ---
Carl engages easily. Reports mood is stable, denies highs or lows, denies racing thought or confusion. Denies depression or anxiety, states was here because of his mother. Denies SI/HI plan or intent. Denies perceptual disturbances, no overt psychosis or expressed delusions. Planning to attend PCP appointment today following discharge. Declined review of discharge information stating he was aware of appointments and knew his medications. All belongings taken with patient. Crisis numbers provided to patient, resource booklet given to patient.
== END 2025-06-08 10:07 | disposition home or self-care (01) | DRG 885 ==
LOC: HO.ED 18:39 → HO.PADLT16 06-03 18:44
PROVIDERS: Physician Assistant; Admitting Provider Registered Nurse; Emergency Provider Emergency Medicine; Visit Provider Psychiatry & Neurology Psychiatry
DX: F31.9 Bipolar disorder, unspecified (principal); R45.851 Suicidal ideations; F17.210 Nicotine dependence, cigarettes, uncomplicated; I10 Essential (primary) hypertension; F11.90 Opioid use, unspecified, uncomplicated; F41.9 Anxiety disorder, unspecified; F43.10 Post-traumatic stress disorder, unspecified; F13.10 Sedative, hypnotic or anxiolytic abuse, uncomplicated; Z71.6 Tobacco abuse counseling; Z79.899 Other long term (current) drug therapy
CPT/HCPCS: 36415; 80053; 80061; 80076; 80164; 80307; 81001; 82140; 83036; 85025; 93005; 99285; S9485

== ENCOUNTER → 2025-06-03 06:44 | Outpatient (BNV) | payer MEDICARE, MEDICAID, SELFPAY | PROVIDERS: Admitting Provider Registered Nurse; Emergency Provider Emergency Medicine; Visit Provider Internal Medicine Cardiovascular Disease | DX: Z13.6 Encounter for screening for cardiovascular disorders (principal) | CPT/HCPCS: 93010 ==

== ENCOUNTER → 2025-06-03 16:15 | Outpatient (BNV) | payer MEDICARE, MEDICAID, SELFPAY | PROVIDERS: Admitting Provider Registered Nurse; Emergency Provider Emergency Medicine; Visit Provider Registered Nurse | DX: F31.9 Bipolar disorder, unspecified (principal); F13.10 Sedative, hypnotic or anxiolytic abuse, uncomplicated; F11.90 Opioid use, unspecified, uncomplicated; F43.11 Post-traumatic stress disorder, acute | CPT/HCPCS: 90792; 99231; 99232 ==